=== PATIENT | male | born 1960 | race Caucasian/White ===

== ENCOUNTER 2021-01-31 13:01 | Inpatient (IN) | payer OTHER ==
[2021-01-31] VITALS (11 sets, daily range): BP systolic 72–113; BP diastolic 22–94
[~2021-01-31] VITALS: Ht 188 cm; Wt 110.2 kg
--- NOTE | 2021-01-31 13:15 | NUR ---
DR. FELIZ AT FOR EVAL.
--- NOTE | 2021-01-31 13:28 | NUR ---
REQUESTED ICU BED FROM NURSING SUP
[2021-01-31] MEDS ORDERED: DEXAMETHASONE SOD PHOSPHATE 10 MG/ML VIAL ONE (13:30)
[2021-01-31] MEDS ORDERED: DEXAMETHASONE SOD PHOSPHATE 10 MG/ML VIAL IV ONE (13:30)
--- NOTE | 2021-01-31 13:30 | NUR ---
"Dx w/Covid 01/28 now feeling worse- cough No energy/weak low O2sats". AAOX4, PLACED ON O2 15L NR, O2 SAT 96%. PLACED ON VARNISHING MACHINE OPERATOR, SR. WILL CONT TO MONITOR.
--- NOTE | 2021-01-31 13:33 | NUR ---
ROOM 260
--- NOTE | 2021-01-31 13:35 | NUR ---
MOVE SHEET SUBMITTED.
--- NOTE | 2021-01-31 13:45 | NUR ---
MEDICATED PER ERMD ORDER, PT BRIAN WELL. PT PLACED ON HI-ALEX O2 40L, O2 SAT 96%, PT BRIAN WELL. NO RESP DISTRESS NOTED AT THIS TIME. WILL CONT TO MONITOR..
--- NOTE | 2021-01-31 13:49 | NUR ---
RT NOTE PT PLACED ON HIGH FLOW PER MD FELIZ ORDER. SETTINGS ARE 40LPM AND 100% FIO2. SPO2 95%. WILL CONTINUE TO MONITOR.
[2021-01-31 13:52] LABS: CALCIUM, SERUM 8.1 mg/dL (8.5-10.1); CARBON DIOXIDE 29 mmol/L (21-32); CHLORIDE 95 mmol/L (98-107); CREATININE 1.2 mg/dL (0.6-1.3); GLUCOSE 134 mg/dL (74-106); POTASSIUM 4.2 mmol/L (3.5-5.1); SODIUM SERUM 132 mmol/L (136-145); UREA NITROGEN, BLOOD 27 mg/dL (7-18)
[2021-01-31 13:55] LABS: BASOPHILS % (AUTO) 0.1 % (0.0-2.0); EOSINOPHILS % (AUTO) 0.1 % (0.0-6.0); HEMATOCRIT 48 % (39-51); HEMOGLOBIN 16.5 g/dL (13.5-17.5); LYMPHOCYTES # (AUTO) 0.7 K/uL (0.8-4.8); LYMPHOCYTES % (AUTO) 11.6 % (20.0-44.0); MEAN CORPUSCULAR HGB CONC 35 g/dl (31.0-36.0); MEAN CORPUSCULAR VOLUME 90 fL (80-96); MONOCYTES # (AUTO) 0.5 K/uL (0.1-1.30); MONOCYTES % (AUTO) 8.6 % (2.0-12.0); NEUTROPHILS # (AUTO) 4.5 K/uL (1.8-8.9); NEUTROPHILS % (AUTO) 79.6 % (43.0-81.0); PLATELET COUNT (AUTO) 179 K/uL (150-450); RED BLOOD CELL COUNT(AUTO) 5.29 MIL/uL (4.5-6.0); WHITE BLOOD COUNT (AUTO) 5.7 K/uL (4.3-11.0)
[2021-01-31 13:57] LABS: ALANINE AMINOTRANSFERASE 181 U/L (12-78); ALKALINE PHOSPHATASE 48 U/L (46-116); ASPARTATE AMINOTRANSFERASE 147 U/L (15-37); BILIRUBIN,DIRECT 0.4 mg/dL (0.0-0.2); BILIRUBIN,TOTAL 0.9 mg/dL (0.2-1.0); TOTAL PROTEIN, SERUM 7.2 g/dL (6.4-8.2)
--- NOTE | 2021-01-31 14:13 | NUR ---
[facility] CALLED INVESTMENT BANKING MANAGER PAGED.
--- NOTE | 2021-01-31 14:33 | NUR ---
sarah Berry [phone]
[2021-01-31] MEDS ORDERED: REMDESIVIR (CHARGED) 200 MG, *LOADING DOSE 1 EA in IV NS 0.9% 210 ML IV ONE (15:00)
[2021-01-31] MEDS ORDERED: Z GUARD REMEDY 2 OZ OINT TP PRN (15:30)
[2021-01-31] MEDS ORDERED: IV NS 0.9% 1,000 ML IV ONE (15:30)
[2021-01-31] MEDS ORDERED: MAGNESIUM HYDROXIDE 30 ML UDC PO PRN (15:30)
[2021-01-31] MEDS ORDERED: ZOLPIDEM TARTRATE 5 MG TABLET PO PRN (15:30)
[2021-01-31] MEDS ORDERED: MAG HYDROX/AL HYDROX/SIMETH 30 ML UDC PO PRN (15:30)
[2021-01-31] MEDS ORDERED: ONDANSETRON HCL/PF 4 MG/2 ML VIAL IVP PRN (15:30)
--- NOTE | 2021-01-31 15:41 | NUR ---
REPORT GIVEN TO ML BURKETT FOR ARACELIS.
--- NOTE | 2021-01-31 16:00 | NUR ---
PT ARRIVED ON UNIT AT 1558. PT WAS SETTLED IN BED, INSTRUCTED HOW TO USE BED AND CALL LIGHT. PT IMMEDIATELY INFORMED KWADWO RN AND ALESSANDRO RN THAT HE REFUSES TO TAKE REMDESIVIR IF IT WAS TO BE GIVEN TO HIM. PT STATES "BECAUSE IT'S BAD FOR MY KIDNEYS". RN EXPLAINED THE BENEFITS OF THE MED, PT CONTINUES TO REFUSE. DR. RAMIREZ AND DR ARSHAD AND PHARMACY ALL NOTIFIED. PT CURRENTLY ON 40L 100% HIGH FLOW NASAL CANNULA SATTING 84-86%. PT IS ALERT OX4, HAS CELL PHONE AT BEDSIDE, ABLE TO MOVE INDEPENDENTLY.
[2021-01-31 16:30] LABS: FERRITIN 3272 ng/mL (8-388)
[2021-01-31] MEDS: ENOXAPARIN SODIUM 40 MG/0.4 ML DISP.SYRIN SQ SCH ×2 (16:51→17:00)
--- NOTE | 2021-01-31 20:00 | NUR ---
ICU NOTES Received patient awake alert and oriented x4.VS stable.On HFNC 40L 100% FIO2 satting 86%.-91%. HOB elevated.No acute respiratory distress noted.Patient verbalized he is hungry.Diet served ate with good appetite.IVF NS infusing well.Voiding per urinal.Moves in bed independently.Call light at bedside.
--- NOTE | 2021-01-31 20:21 | NUR ---
RECEIVED PT ON HFNC 40L, FIO2 100%. PT IS AWAKE AND ALERT O2 SAT 89%. CONTINUE TO MONITOR.
[2021-02-01] VITALS (25 sets, daily range): BP systolic 93–123; BP diastolic 39–70
[2021-02-01] MEDS: ENOXAPARIN SODIUM 40 MG/0.4 ML DISP.SYRIN SQ SCH ×2 (04:58→17:48)
[2021-02-01 05:52] LABS: BASOPHILS % (AUTO) 0.1 % (0.0-2.0); HEMATOCRIT 43 % (39-51); HEMOGLOBIN 14.9 g/dL (13.5-17.5); LYMPHOCYTES # (AUTO) 0.6 K/uL (0.8-4.8); LYMPHOCYTES % (AUTO) 12.5 % (20.0-44.0); MEAN CORPUSCULAR HGB CONC 35 g/dl (31.0-36.0); MEAN CORPUSCULAR VOLUME 90 fL (80-96); MONOCYTES # (AUTO) 0.4 K/uL (0.1-1.30); MONOCYTES % (AUTO) 9.8 % (2.0-12.0); NEUTROPHILS # (AUTO) 3.6 K/uL (1.8-8.9); NEUTROPHILS % (AUTO) 77.6 % (43.0-81.0); PLATELET COUNT (AUTO) 198 K/uL (150-450); RED BLOOD CELL COUNT(AUTO) 4.72 MIL/uL (4.5-6.0); WHITE BLOOD COUNT (AUTO) 4.6 K/uL (4.3-11.0)
[2021-02-01 06:05] LABS: ALBUMIN 2.4 g/dL (3.4-5.0); BILIRUBIN,TOTAL 0.6 mg/dL (0.2-1.0); CALCIUM, SERUM 7.6 mg/dL (8.5-10.1); CREATININE 1.1 mg/dL (0.6-1.3); MAGNESIUM 3.2 mg/dL (1.8-2.4); PHOSPHORUS 3.9 mg/dL (2.5-4.9); POTASSIUM 4.6 mmol/L (3.5-5.1); TOTAL PROTEIN, SERUM 6.4 g/dL (6.4-8.2)
--- NOTE | 2021-02-01 07:10 | NUR ---
ICU NOTES Patient AAOX4.Afebrile.Continue on HFNC 40L 100 FIO2 saturation flactuating from 84%-93 %. No acute respiratory distress noted.SR/SB 58.Denies pain or any discomfort.AM care done. Need met.Continueon Droplet precaution.Report given to day shift Agustin for willie.
--- NOTE | 2021-02-01 07:30 | NUR ---
RN Note: Pt received alert awake oriented X 4. On high flow O2 NC @ 40LPM, Fio2 100%. No breathing distress noted at rest. SPO2 84-92%. Denies pain & discomfort at this time. Safety measures observed. Continue with droplet/contact precautions. Encourage pt to use call light for assistance. Call light within reach. Continue to monitor closely.
[2021-02-01] MEDS: DEXAMETHASONE SOD PHOSPHATE 10 MG/ML VIAL IV SCH (08:04)
[2021-02-01] MEDS: ZINC SULFATE 220 MG CAPSULE PO SCH (09:06)
[2021-02-01] MEDS: CHOLECALCIFEROL 1,000 UNIT TABLET (VIT D3) PO SCH (09:06)
[2021-02-01 10:07] LABS: ABG BASE EXCESS 0.2 mmol/L; ABG OXYGEN SATURATION 87.4 % (92.0-98.5); ABG PH 7.482 (7.350-7.450); ABG PO2 52.4 mmHg (75.0-100.0); AaDO2 629.6 mmHg; COHb 0.2 % (0.5-1.5); MetHb 0.1 % (0.0-1.5); O2Hb 87.1 % (94.0-97.0); SITE, ABG Right Radial; VENT MODE, BG HFNC 40LPM/100%
[2021-02-01] MEDS ORDERED: REMDESIVIR (CHARGED) 100 MG in IV NS 0.9% 100 ML IV SCH (15:00)
--- NOTE | 2021-02-01 19:16 | NUR ---
RN NOTE: NO CHANGE OF CONDITION NOTED DURING SHIFT. REPORT GIVEN TO PM SHIFT FOR CONTINUITY OF CARE.
--- NOTE | 2021-02-01 20:00 | NUR ---
Received patient AAOX4.Vital signs stable.Respiration even and unlabored.Continue on HFNC 40L FIO2 100% in addition to NRB mask saturation 88%-92%.Denies pain or sob.Voiding per urinal.Independent with bed mobility.SL to LAC intact.Continue to monitor.
[2021-02-02] VITALS (28 sets, daily range): BP systolic 75–125; BP diastolic 28–96
[2021-02-02] MEDS: ENOXAPARIN SODIUM 40 MG/0.4 ML DISP.SYRIN SQ SCH ×2 (04:14→17:51)
[2021-02-02] MEDS ORDERED: IV NS 0.9% 1,000 ML IV ONE (04:30)
--- NOTE | 2021-02-02 04:30 | NUR ---
ICU NOTES Patient with blood pressure SBP mid 80's.Dr Messina notified with orders received and carried out.To give NS 1L bolus.
[2021-02-02 05:18] LABS: BASOPHILS % (AUTO) 0.1 % (0.0-2.0); HEMATOCRIT 40 % (39-51); HEMOGLOBIN 14.2 g/dL (13.5-17.5); LYMPHOCYTES # (AUTO) 1.2 K/uL (0.8-4.8); LYMPHOCYTES % (AUTO) 13.6 % (20.0-44.0); MEAN CORPUSCULAR HGB CONC 35 g/dl (31.0-36.0); MEAN CORPUSCULAR VOLUME 90 fL (80-96); MONOCYTES # (AUTO) 0.5 K/uL (0.1-1.30); MONOCYTES % (AUTO) 5.8 % (2.0-12.0); NEUTROPHILS % (AUTO) 80.5 % (43.0-81.0); PLATELET COUNT (AUTO) 243 K/uL (150-450); RED BLOOD CELL COUNT(AUTO) 4.49 MIL/uL (4.5-6.0); WHITE BLOOD COUNT (AUTO) 8.7 K/uL (4.3-11.0)
[2021-02-02 05:24] LABS: CALCIUM, SERUM 7.9 mg/dL (8.5-10.1); CREATININE 0.9 mg/dL (0.6-1.3); POTASSIUM 4.6 mmol/L (3.5-5.1)
--- NOTE | 2021-02-02 05:58 | NUR ---
ICU NOTES here on rounds updated of patient status.Orders received and carried out.
--- NOTE | 2021-02-02 06:00 | NUR ---
ICU NOTES Patient awake in no acute distress.Latest BP 94/63 HR 56.Per to stop IV NS bolus.Patient only received 500ml.Stat ABG done awaiting result.
[2021-02-02 06:17] LABS: ABG BASE EXCESS 1.6 mmol/L; ABG OXYGEN SATURATION 89.8 % (92.0-98.5); ABG PCO2 32.6 mmHg (35.0-45.0); ABG PH 7.489 (7.350-7.450); ABG PO2 55.8 mmHg (75.0-100.0); AaDO2 624.6 mmHg; COHb 0.5 % (0.5-1.5); MetHb 0.3 % (0.0-1.5); O2Hb 89.1 % (94.0-97.0); SITE, ABG Right Radial; VENT MODE, BG HFNC 40L 100% + NRB
--- NOTE | 2021-02-02 06:30 | NUR ---
Dr. Claros seen patient and aware of ABG's result pH =7.489,pCO2 =32.6,pO2= 55.8,HCO3=24.2 and SB 40'S-50'S.No new orders received.Patient resting in no acute distress.
[2021-02-02] MEDS: CHOLECALCIFEROL 1,000 UNIT TABLET (VIT D3) PO SCH (08:43)
[2021-02-02] MEDS: ZINC SULFATE 220 MG CAPSULE PO SCH (08:43)
[2021-02-02] MEDS: DEXAMETHASONE SOD PHOSPHATE 10 MG/ML VIAL IV SCH (08:43)
[2021-02-02 08:47] LABS: ALBUMIN 2.3 g/dL (3.4-5.0); BILIRUBIN,DIRECT 0.2 mg/dL (0.0-0.2); BILIRUBIN,TOTAL 0.7 mg/dL (0.2-1.0); TOTAL PROTEIN, SERUM 5.9 g/dL (6.4-8.2)
--- NOTE | 2021-02-02 19:10 | NUR ---
PCT NOTE RECEIVED PATIENT IN BED RESTING ALERT ORIENTED X4 ABLE TO MAKE NEEDS KNOWN,ON HIGH FLOW OXYGEN 40L FIO2:100% AND 15L NON REBREATHER MASK O2:88% IV SITE IS ON LEFT AC INTACT PATENT HEAD OF BED ELEVATED CONTINENT TO BOWEL/BLADDER, CALL LIGHT WITHIN REACH, BED IN LOW POSITION AND LOCKED,ENCOURAGE TO STAY ON PRONE POSITON CONTINUE TO MONITOR.
[2021-02-03] VITALS (49 sets, daily range): BP systolic 72–122; BP diastolic 30–86
[2021-02-03] MEDS: ENOXAPARIN SODIUM 40 MG/0.4 ML DISP.SYRIN SQ SCH ×2 (04:17→17:02)
[2021-02-03 04:51] LABS: BASOPHILS % (AUTO) 0.2 % (0.0-2.0); EOSINOPHILS % (AUTO) 0.2 % (0.0-6.0); HEMATOCRIT 43 % (39-51); HEMOGLOBIN 14.9 g/dL (13.5-17.5); LYMPHOCYTES # (AUTO) 1.1 K/uL (0.8-4.8); LYMPHOCYTES % (AUTO) 9.7 % (20.0-44.0); MEAN CORPUSCULAR HGB CONC 35 g/dl (31.0-36.0); MEAN CORPUSCULAR VOLUME 90 fL (80-96); MONOCYTES # (AUTO) 0.2 K/uL (0.1-1.30); MONOCYTES % (AUTO) 2.2 % (2.0-12.0); NEUTROPHILS # (AUTO) 9.6 K/uL (1.8-8.9); NEUTROPHILS % (AUTO) 87.7 % (43.0-81.0); PLATELET COUNT (AUTO) 265 K/uL (150-450)
[2021-02-03 05:04] LABS: CALCIUM, SERUM 7.8 mg/dL (8.5-10.1); CREATININE 0.9 mg/dL (0.6-1.3); POTASSIUM 5.3 mmol/L (3.5-5.1)
--- NOTE | 2021-02-03 06:52 | NUR ---
RN NOTE PATIENT REMAINS ON ALERT ORIENTED X4 VERBALLY RESPONSIVE ON HIGH FLOW OXYGEN 40L FIO2:100% AND 15L NON REBREATHER MASK O2:96% IV SITE IS ON LEFT AC INTACT PATENT KEPT CLEAN AND DRY ALL THE TIME,KEPT COMFORTABLE ALL NEEDS MET ENDORSE NEXT COMING SHIFT FOR CONTINUATION OF CARE.
--- NOTE | 2021-02-03 07:20 | NUR ---
PUBLIC HEALTH ENGINEER OPENING NOTE RECEIVED REPORT FROM PM NURSE.PATIENT IS ALERT ORIENTED X4 VERBALLY RESPONSIVE ON HIGH FLOW OXYGEN 40L FIO2:100% AND 15L NON REBREATHER MASK O2:96% . IV SITE IS ON LEFT AC INTACT PATENT.BED IS LOW AND IN LOCKED POSITION.CALL LIGHT IN REACH.BED ALARM IS ON.SRX3.WILL CONTINUE TO MONITOR.
[2021-02-03] MEDS: DEXAMETHASONE SOD PHOSPHATE 10 MG/ML VIAL IV SCH (08:02)
[2021-02-03] MEDS: CHOLECALCIFEROL 1,000 UNIT TABLET (VIT D3) PO SCH (08:02)
[2021-02-03] MEDS: ZINC SULFATE 220 MG CAPSULE PO SCH (08:02)
--- NOTE | 2021-02-03 08:20 | NUR ---
SEEN BY UPDATED ABOUT PATIENT CONDITION WITH LABS,CARMELOE AWARE K -5.3.NNO NOW.OK TO ORDER PCR IF NOT ORDERED IN LAB,CALL MADE TO LAB NO ORDER FOR COVID PCR.WILL FOLLOW UP.
[2021-02-03 08:52] LABS: ABG BASE EXCESS -0.1 mmol/L; ABG PCO2 27.9 mmHg (35.0-45.0); ABG PH 7.506 (7.350-7.450); ABG PO2 72.2 mmHg (75.0-100.0); AaDO2 612.9 mmHg; COHb 0.4 % (0.5-1.5); MetHb 0.3 % (0.0-1.5); O2Hb 94.3 % (94.0-97.0); SITE, ABG Left Brachial; VENT MODE, BG NRGB + HFNC
[2021-02-03] MEDS: ACETAMINOPHEN 325 MG TABLET PO PRN (13:37)
--- NOTE | 2021-02-03 14:17 | NUR ---
MADE AWARE ABOUT PATIENT SISTER REQUEST TO CALL.BP IS GETTING LOW WHILE HE SLEEPS AND AT TIMES.DRY COUGH PRESENT. AWARE.CHARTING DONE ACCIDENTALLY FROM PREVIOUS SHIFT NURSE'S OPEN WINDOW.RE CHARTED UNDER MY NAME.
--- NOTE | 2021-02-03 18:09 | NUR ---
SERVICE DELIVERY MANAGER CLOSING NOTE PATIENT IN BED ALERT ORIENTED X4 VERBALLY RESPONSIVE ON HIGH FLOW OXYGEN 40L FIO2:100% AND 15L NON REBREATHER MASK O2:96% . STILL REFUSING REMDESIVIR . MADE AWARE.EDUCATION GIVEN.HE SAID HE WILL THINK ABOUT IT.BUT NOT THIS POINT.IV SITE IS ON LEFT AC INTACT PATENT.BED IS LOW AND IN LOCKED POSITION.CALL LIGHT IN REACH.BED ALARM IS ON.SRX3.WILL ENDORSE TO PM NURSE FOR ARACELIS.
--- NOTE | 2021-02-03 19:30 | NUR ---
RN OPENING NOTE REC'D PT IN BED. A/OX4. ON 40L HIGH FLOW NC WITH 15L NONREBREATHER. BREATHING LABORED. PT SATURATION IS 89-92% AT THIS TIME. EDUCATED PT ON IMPORTANCE OF KEEPING MASK ON. PRONING ENCOURAGED. PT ON MONITOR PRESENTS WITH NSR ON TELE. IV SITE LEFT AC FLUSHES WELL. PT DENIES PAIN. PT USES URINAL, INDEPENDENT. SAFETY MEASURES IN PLACE. HOB ELEVATED SIDE RAILS UP X2 BED LOCKED IN LOWEST POSITION. CALL LIGHT WITHIN REACH. ALL NEEDS ATTENDED AT THIS TIME. WILL CONT TO MONITOR.
--- NOTE | 2021-02-03 20:00 | NUR ---
RN NOTE: FAMILY PT FAMILY ON PHONE WITH BUSINESS ANALYTICS DIRECTORMAILE HAVING EXTENSIVE CONVERSATION REGARDING PT PROGRESS. PER FAMILY, THEY HAVE ATTEMPTED TO GET IN CONTACT WITH MD THEY ARE VERY CONCERNED DUE TO LACK OF COMMUNICATION FROM MD THE LAST THREE DAYS. NOTIFIED DISTRIBUTION CENTER SUPERVISOR, SHARON RENDON NP SAYS HE WILL FOLLOW UP WITH FAMILY BETTE.
--- NOTE | 2021-02-03 23:50 | NUR ---
RN/ICU-SPOKE TO Ford KU BY PHONE ,STATED THAT HE JUST SPOKE TO PT. SISTER DIVINA REGARDING PT. STATUS AND UPDATE.
[2021-02-04] VITALS (33 sets, daily range): BP systolic 78–110; BP diastolic 33–71
[2021-02-04] MEDS: ENOXAPARIN SODIUM 40 MG/0.4 ML DISP.SYRIN SQ SCH ×2 (04:01→16:40)
[2021-02-04 05:39] LABS: BASOPHILS % (AUTO) 0.1 % (0.0-2.0); EOSINOPHILS % (AUTO) 0.3 % (0.0-6.0); HEMATOCRIT 42 % (39-51); HEMOGLOBIN 14.5 g/dL (13.5-17.5); LYMPHOCYTES # (AUTO) 0.5 K/uL (0.8-4.8); LYMPHOCYTES % (AUTO) 3.9 % (20.0-44.0); MEAN CORPUSCULAR HGB CONC 35 g/dl (31.0-36.0); MEAN CORPUSCULAR VOLUME 91 fL (80-96); MONOCYTES # (AUTO) 0.1 K/uL (0.1-1.30); MONOCYTES % (AUTO) 0.9 % (2.0-12.0); NEUTROPHILS % (AUTO) 94.8 % (43.0-81.0); PLATELET COUNT (AUTO) 234 K/uL (150-450); WHITE BLOOD COUNT (AUTO) 13.8 K/uL (4.3-11.0)
[2021-02-04 05:51] LABS: ALBUMIN 2.3 g/dL (3.4-5.0); BILIRUBIN,DIRECT 0.3 mg/dL (0.0-0.2); BILIRUBIN,TOTAL 0.9 mg/dL (0.2-1.0); CALCIUM, SERUM 7.8 mg/dL (8.5-10.1); CREATININE 0.9 mg/dL (0.6-1.3); POTASSIUM 4.7 mmol/L (3.5-5.1)
--- NOTE | 2021-02-04 07:09 | NUR ---
MEDICINAL PLANT PICKER CLOSING NOTE NO SIGNIFICANT CHANGE IN PT CONDITION, BP TENDS TO GO LOW AT TIMES WHEN PT IS ASLEEP, BUT RETURNS BACK TO NORMAL. PT REMAINS ON HF + NONREBREATHER AT SAME SETTINGS. SAFETY MEASURES IN PLACE. PT BROTHER HOLLIE REGULARLY CALLS. LAST CONVERSATION WAS REGARDING THE POSSIBILITY OF PT TAKING MEDICATION, ACTEMRA. FAMILY DOES NOT WANT HIM TO TAKE IT DUE TO POSSIBLE SIDE EFFECTS. I EXPLAINED TO FAMILY THAT IF PT IS ALERT, SOUND OF MIND, HE IS ABLE TO MAKE INFORMED DECISIONS REGARDING HIS CARE. HOLLIE VERBALIZED UNDERSTANDING, JUST REQUESTS I EXPLAIN TO DAY SHIFT NURSE THE FAMILY CONCERN.
--- NOTE | 2021-02-04 07:15 | NUR ---
RN OPENING NOTE RECEIVED PT IN BED. A/OX4. ON 40L HIGH FLOW NC WITH 15L NONREBREATHER. PT O2 SATURATION @96% AT THIS TIME. SR ON TELE MONITOR. IV ACCESS ON LEFT AC #18 INTACT, PATENT AND FLUSHED. PT DENIES PAIN. EDUCATED PT ON IMPORTANCE OF KEEPING MASK ON. SAFETY MEASURES IN PLACE. HOB ELEVATED SIDE RAILS UP X2. CALL LIGHT WITHIN REACH. BED LOCKED IN LOWEST POSITION. WILL CONTINUE TO MONITOR.
--- NOTE | 2021-02-04 07:28 | NUR ---
ENDORSED TO DAY SHIFT RN FOR CONTINUATION OF CARE
[2021-02-04] MEDS: CHOLECALCIFEROL 1,000 UNIT TABLET (VIT D3) PO SCH (08:38)
[2021-02-04] MEDS: ASCORBIC ACID 500 MG TABLET PO SCH (08:38)
[2021-02-04] MEDS: ZINC SULFATE 220 MG CAPSULE PO SCH (08:38)
[2021-02-04] MEDS: DEXAMETHASONE SOD PHOSPHATE 10 MG/ML VIAL IV SCH (08:38)
--- NOTE | 2021-02-04 18:48 | NUR ---
RN CLOSING NOTE NO SIGNIFICANT CHANGES THROUGHOUT THE SHIFT. ON HF + NONREBREATHER AT SAME SETTINGS. ALL DUE MEDS GIVEN. NEEDS ATTENDED. ASSISTED ON BATHING. KEPT CLEAN AND COMFORTABLE. SAFETY MEASURES IN PLACE. CALL LIGHT WITHIN REACH. WILL ENDORSE TO NIGHT RN FOR ARACELIS.
--- NOTE | 2021-02-04 19:15 | NUR ---
Received patient awake alert and oriented x4 On HFNC 40L 100% FIO2 satting 86%.-91%. HOB elevated.Encourage pt to proning position, vebalized understanding,No acute respiratory distress noted.Pt able to verbalized needs n pain complaint IVF NS infusing well.Voiding per urinal.Moves in bed independently.Bed on lowest position and locked side rails up Call light at bedside will cont to monitor
[2021-02-04] MEDS: ACETAMINOPHEN 325 MG TABLET PO PRN (20:47)
[2021-02-05] VITALS (24 sets, daily range): BP systolic 79–146; BP diastolic 33–95
[2021-02-05] MEDS: ENOXAPARIN SODIUM 40 MG/0.4 ML DISP.SYRIN SQ SCH ×2 (04:45→17:30)
--- NOTE | 2021-02-05 06:03 | NUR ---
REPORTED TO FINGERPRINTER NICOLA BATRES THAT PT IS RUNNING FEVER TODAY AND THERE IS NO LABS TEST ORDER FOR TODAY, SHE ORDER CBC BMP MG PHOS UA AND BLOOD CULTURE X2 5 MINS APART LACTIC AND PROCALCITONIN NOTED AND CARRIED OUT
[2021-02-05 06:45] LABS: BASOPHILS % (AUTO) 0.1 % (0.0-2.0); EOSINOPHILS % (AUTO) 0.3 % (0.0-6.0); HEMATOCRIT 41 % (39-51); HEMOGLOBIN 14.2 g/dL (13.5-17.5); LYMPHOCYTES # (AUTO) 0.3 K/uL (0.8-4.8); LYMPHOCYTES % (AUTO) 2.3 % (20.0-44.0); MEAN CORPUSCULAR HGB CONC 35 g/dl (31.0-36.0); MEAN CORPUSCULAR VOLUME 91 fL (80-96); MONOCYTES # (AUTO) 0.1 K/uL (0.1-1.30); MONOCYTES % (AUTO) 1.2 % (2.0-12.0); NEUTROPHILS # (AUTO) 11.2 K/uL (1.8-8.9); NEUTROPHILS % (AUTO) 96.1 % (43.0-81.0); PLATELET COUNT (AUTO) 209 K/uL (150-450); WHITE BLOOD COUNT (AUTO) 11.7 K/uL (4.3-11.0)
[2021-02-05 07:09] LABS: MAGNESIUM 2.6 mg/dL (1.8-2.4); PHOSPHORUS 2.6 mg/dL (2.5-4.9); POTASSIUM 4.4 mmol/L (3.5-5.1)
--- NOTE | 2021-02-05 07:27 | NUR ---
HOSTING ENGINEER OPENING NOTE Patient is Awake, A/O X 4, sitting upright in bed drinking water, on 40L HIGH FLOW NC WITH 15L NONREBREATHER satting 88-90%. Telereading sinus rhythm. On contact/droplet isolation for COVID +. LAC IV site 18G with no s/sx of infiltration, safety precautions implemented, bed locked in lowest position, call light within reach.
[2021-02-05] MEDS: ASCORBIC ACID 500 MG TABLET PO SCH (08:04)
[2021-02-05] MEDS: ZINC SULFATE 220 MG CAPSULE PO SCH (08:04)
[2021-02-05] MEDS: CHOLECALCIFEROL 1,000 UNIT TABLET (VIT D3) PO SCH (08:04)
[2021-02-05] MEDS: DEXAMETHASONE SOD PHOSPHATE 10 MG/ML VIAL IV SCH (08:05)
[2021-02-05 08:58] LABS: ABG BASE EXCESS -1.6 mmol/L; ABG OXYGEN SATURATION 91.1 % (92.0-98.5); ABG PCO2 27.1 mmHg (35.0-45.0); ABG PH 7.489 (7.350-7.450); ABG PO2 57.1 mmHg (75.0-100.0); AaDO2 628.8 mmHg; COHb 0.6 % (0.5-1.5); MetHb 0.3 % (0.0-1.5); O2Hb 90.3 % (94.0-97.0); SITE, ABG Right Radial; VENT MODE, BG HIGH FLOW 40 LPM / 100%
[2021-02-05] MEDS: ACETAMINOPHEN 325 MG TABLET PO PRN ×2 (11:33→23:26)
[2021-02-05 12:11] LABS: BILIRUBIN,URINE SMALL (NEGATIVE); COLOR,URINE DARK YELLOW (YELLOW); LEUKOCYTE ESTERASE ,URINE NEGATIVE (NEGATIVE); NITRITE, URINE NEGATIVE (NEGATIVE); PH,URINE 6.5 (5.0-8.0); PROTEIN,URINE 100 mg/dl (NEGATIVE); UGLUCOSE NEGATIVE (NEGATIVE)
--- NOTE | 2021-02-05 12:33 | NUR ---
RN NOTE 1133-Temperature 101.0 F via axillary route, cooling measures and tylenol administered. 1233-Temperature of 98.8F.
[2021-02-05 13:41] LABS: BACTERIA,URINE Rare /HPF (None Seen); RBC,URINE 0-2 /HPF (0-2); SQUAMOUS EPITHELIAL CELL,UR Rare /HPF (None Seen); WBC,URINE 0-2 /HPF (0-3)
--- NOTE | 2021-02-05 18:57 | NUR ---
INTERNAL COMMUNICATIONS WRITER CLOSING NOTES Patient is A/O X4, On HFN 40L 100% and Non-rebreather mask 15L with fluctuating 02 sat 80-89%. Complains of SOB upon exertion, sleeps lateral side advised to self prone. On droplet/contact precautions for COVID. Fever 101F noted with mild relief after administration of tylenol and cooling measures 98.8F. Continent of B/B voided 700cc and 1 BM. Poor po intake >25% for all meals. AM/PM care rendered. DNP made aware of lactic acid results 2.3. Safety precautions implemented, bed locked in lowest position, call light within reach. Spoke with Family Sister/brother in three different times updated of patient condition and current plan of care. Addendum: 02/05/21 at 1902 by EMY MORGAN RN *Poor po intake <25 % for all meals.
--- NOTE | 2021-02-05 19:05 | NUR ---
RECEIVED PT ON BED AWAKE A/O X3 STILL ON O2 15L VIA NRM AND 40L HIGHFLOW 100% WITH SPO2 80-89% MD IS AWARE,PT IS DRINGKING WATER AT THE TIME, TEMP CHECKED WITH 99.2F BEDSIDE MONITOR READS SINUS RHYTHM 80'S HAVE LAC#18 PATENT AND FLUSHED DROPLET ISOLATION MAINTAINED FOR COVID 19 BED ON LOWEST POSITION AND LOCKED SIDE RILS UP X2 CALL LIGHT WITHIN REACH WILL CONT TO MONITOR
--- NOTE | 2021-02-05 19:59 | NUR ---
RECEIVED PT ON HFNC 40L, FIO2 100% + NRB. PT IS AWAKE O2 SAT 88%. CONTINUE TO MONITOR.
[2021-02-06] VITALS (79 sets, daily range): BP systolic 68–173; BP diastolic 47–124
--- NOTE | 2021-02-06 02:24 | NUR ---
PT ON BED SLEEPING STILL ON O2 15L VIA NRM AND 40L 100% VIA HIGH FLOW WITH SPO2 80-86% PT IS A//O X4 EASY TO WAKE UP, NO COMPLAINT OF ANY PAIN BUT STILL TACHYPNEIC WITH RR >30 PER PT HE SAID HE IS OKAY NOW LATEST TEMP 99.2 ENCOURAGE PT TO DO PRONING OR SIDE LYING TOLERATED VERBALIZED UNDERSTANDING WILL CONT TO MONITOR
--- NOTE | 2021-02-06 03:41 | NUR ---
STAT ABG DONE. NOTIFIED RN WITH THE CRITICAL VALUES.
[2021-02-06 03:45] LABS: ABG OXYGEN SATURATION 67.6 % (92.0-98.5); ABG PO2 32.6 mmHg (75.0-100.0); AaDO2 654.4 mmHg; COHb 1.1 % (0.5-1.5); MetHb 0.2 % (0.0-1.5); O2Hb 66.7 % (94.0-97.0); SITE, ABG Right Radial
--- NOTE | 2021-02-06 04:00 | NUR ---
@ 0330 REPORTED TO ONCKOLBY BATRES THAT PT SPO2 IS SUSTAINING ON 60-70'S AND WE DO STAT ABG AND REPOSTED TO HER THE RESULT WITH LOW PO2 OF 32, AND INFORM HER THAT WE SPOKE TO THE PATIENT AWHILE AGO THAT PT IS HAVING A SECOND THOUGHT OF GETTING INTUBATED PER PT THE THING BEING INTUBATED IS SOUNDS HORRIBLE AND HE IS WORRIED ABOUT HOW HE WILL TALK OR DRINK WATER AND EAT FOOD, I EXPLAIN TO THE PT THAT WHILE HE WAS ON VENTILATOR AND INTUBATED HE WILL BE SEDATED/ HE WILL PUT TO SLEEP AND REGARDING THE FOOD HIS FOOD I WILL GO THRU THE NGTUBE, PER PT HE WANT TO INFORM HIS SISTER DIVINA, WILL CALL DIVINA PER PT REQUEST
--- NOTE | 2021-02-06 04:15 | NUR ---
CALL DIVINA PT SISTER [phone] AND EXPLAIN TO HER THE NEEDS FOR HIS BROTHER TO BE INTUBATED DUE TO LOW SPO2 AND OXYGEN ON HIS BLOOD, PER DIVINA SHE WANT TO TALK TO THE ONCALL ABOUT THE POSSIBLE INTUBATION OF HER BROTHER MR JOE
[2021-02-06] MEDS: ENOXAPARIN SODIUM 40 MG/0.4 ML DISP.SYRIN SQ SCH ×2 (04:18→16:28)
[2021-02-06] MEDS ORDERED: DEXAMETHASONE SOD PHOSPHATE 10 MG/ML VIAL IV ONE (04:30)
--- NOTE | 2021-02-06 05:10 | NUR ---
CALLED DIVINA PT SISTER AND SHE TALK TO THE PT AND THEY DISCUSS WHAT THE ONCKOLBY RAMIREZ DISCUSS TO THEM, PT AGREE TO BE INTUBATED AND ALSO THE PT SISTER INFORM THE ONCKOLBY BATRES SLEDGER AND ER MD TO START THE INTUBATION
[2021-02-06] MEDS: PROPOFOL 100 ML IV PRN ×8 (05:30→23:05)
--- NOTE | 2021-02-06 05:30 | NUR ---
DR TITO ABRAHAM MD AT BEDSIDE AND INTUBATING THE PT, RT AND ICU CHARGE NURSE AT BEDSIDE
--- NOTE | 2021-02-06 05:40 | NUR ---
RECEIVED AN ORDER FROM STUDENT DEVELOPMENT COORDINATOR NICOLA BATRES FOR SIPRICAN TITRATE PER PROTOCOL LEVOPHED TITRATE PER PROTOCOL TO MAINTAIN SBP>90, BILATERAL SOFT WRIST RESTRAINTS FOR SELF EXTUBATION PRECAUTION SOME AM LABS NOTED AND CARRIED OUT
[2021-02-06 05:53] LABS: BASOPHILS % (AUTO) 0.2 % (0.0-2.0); EOSINOPHILS % (AUTO) 0.1 % (0.0-6.0); HEMATOCRIT 46 % (39-51); HEMOGLOBIN 15.6 g/dL (13.5-17.5); LYMPHOCYTES # (AUTO) 1.1 K/uL (0.8-4.8); LYMPHOCYTES % (AUTO) 6.1 % (20.0-44.0); MEAN CORPUSCULAR HGB CONC 34 g/dl (31.0-36.0); MEAN CORPUSCULAR VOLUME 93 fL (80-96); MONOCYTES # (AUTO) 0.5 K/uL (0.1-1.30); MONOCYTES % (AUTO) 2.5 % (2.0-12.0); NEUTROPHILS # (AUTO) 17.2 K/uL (1.8-8.9); NEUTROPHILS % (AUTO) 91.1 % (43.0-81.0); PLATELET COUNT (AUTO) 213 K/uL (150-450); WHITE BLOOD COUNT (AUTO) 18.9 K/uL (4.3-11.0)
--- NOTE | 2021-02-06 05:56 | NUR ---
PT ORALLY INTUBATED BY DR FRANCIS. 7.5 ETT SECURED AT 25CM AT THE LIP. COLOR CHANGED ON CO2 DETECTOR. BILAT CHEST RISE. PLACED ON 840 VENT. VENT ALARMS SET AND AUDIBLE. VENT PLUGGED INTO RED OUTLET. Addendum: 02/06/21 at 0559 by ANA CRISTINA CHRISTY RT Amended: Links added.
[2021-02-06 06:00] LABS: CALCIUM, SERUM 8.2 mg/dL (8.5-10.1); CREATININE 1.1 mg/dL (0.6-1.3); PHOSPHORUS 4.1 mg/dL (2.5-4.9); POTASSIUM 4.9 mmol/L (3.5-5.1)
--- NOTE | 2021-02-06 07:15 | NUR ---
RN NOTES RECEIVED PT ON BED ,INTUBATED AND SEDATED, ON DIPRIVAN AT 50MCG/KG/MIN RUNNING , ON TELE ST HR IN 130',S O2 SAT LOLA 80'S ,DRAINING TO GRAVITY, IV SITES CLEAN, DRY AND INTACT, SR UP x3, CALL LIGHT WITHIN EASY REACH, BED LOCKED AND IN LOWEST POSITION , CONTINUE TO MONITOR.
[2021-02-06] MEDS: ASCORBIC ACID 500 MG TABLET PO SCH (08:28)
[2021-02-06] MEDS: ZINC SULFATE 220 MG CAPSULE PO SCH (08:28)
[2021-02-06] MEDS: CHOLECALCIFEROL 1,000 UNIT TABLET (VIT D3) PO SCH (08:28)
[2021-02-06] MEDS: DEXAMETHASONE SOD PHOSPHATE 10 MG/ML VIAL IV SCH (08:29)
[2021-02-06] MEDS ORDERED: FENTANYL CITRATE/PF 1,250 MCG in IV NS 0.9% 225 ML IV PRN (08:30)
--- NOTE | 2021-02-06 09:15 | NUR ---
WOUND CARE CONSULT: REVIEWED CHART, NURSING DOCUMENTATION AND SPOKE WITH RN. PT WAS INTUBATED. RECOMMENDATIONS MADE FOR SKIN PROTECTION AND DISCUSSED WITH NURSING STAFF. PT IS ON [facility] LOW AIRLOSS BED. MD IN AGREEMENT WITH PLAN OF CARE.
[2021-02-06] MEDS: FENTANYL CITRATE/PF 2,500 MCG in IV NS 0.9% 200 ML IV PRN (09:18)
[2021-02-06] MEDS: NOREPINEPHRINE 8 MG in IV NS 0.9% 242 ML IV PRN ×2 (09:29→13:40)
--- NOTE | 2021-02-06 10:00 | NUR ---
RN NOTES DARK RED GASTRIC DRAINING NOTED FORM OGT. RUTHANN FUND MANAGER NOTIFIED, OGT ATTACHED TO LIS PER FUND MANAGER ORDER .
[2021-02-06 10:05] LABS: ABG BASE EXCESS -9.4 mmol/L; ABG OXYGEN SATURATION 79.8 % (92.0-98.5); ABG PCO2 64.6 mmHg (35.0-45.0); ABG PH 7.129 (7.350-7.450); ABG PO2 55.6 mmHg (75.0-100.0); AaDO2 592.8 mmHg; COHb 1.5 % (0.5-1.5); MetHb 0.4 % (0.0-1.5); O2Hb 78.3 % (94.0-97.0); SITE, ABG Right Radial; VT, ABG 500 mL
[2021-02-06] MEDS ORDERED: ROCURONIUM BROMIDE 50 MG/5 ML IV ONE (12:20)
[2021-02-06] MEDS ORDERED: ETOMIDATE 2 MG/ML VIAL IV ONE (12:20)
[2021-02-06 12:21] LABS: ABG BASE EXCESS -11.4 mmol/L; ABG OXYGEN SATURATION 91.9 % (92.0-98.5); ABG PH 7.239 (7.350-7.450); ABG PO2 72.4 mmHg (75.0-100.0); COHb 0.4 % (0.5-1.5); MetHb 0.2 % (0.0-1.5); O2Hb 91.3 % (94.0-97.0); PEEP,BG 10 cm H2O; SITE, ABG Right Radial; VT, ABG 530 mL
--- NOTE | 2021-02-06 13:00 | NUR ---
RN NOTES RUTHANN FULTON AND DR ARSHAD SPOKEN TO PT'S SISTER GREAT LENGTH OF TIME ON THE PHONE REGARDING PT CONDITION .
[2021-02-06] MEDS ORDERED: ASCORBIC ACID 500 MG TABLET PO SCH (13:30)
[2021-02-06] MEDS: CEFEPIME 2 GM in IV D5W 100 ML IV SCH ×2 (13:57→21:58)
[2021-02-06] MEDS: THIAMINE HCL 100 MG TABLET PO SCH (13:57)
[2021-02-06] MEDS ORDERED: NOREPINEPHRINE 32 MG in IV NS 0.9% 218 ML IV PRN (14:00)
[2021-02-06] MEDS: NOREPINEPHRINE 32 MG in IV NS 0.9% 250 ML IV PRN (16:58)
--- NOTE | 2021-02-06 18:00 | NUR ---
RN NOTES PT REMAINS INTUBATED , AND SEDATED , ON DIPRIVAN AT 100MCG/KG/MIN , FENTANYL AT 2MCG/KG/MIN , LEVO AT .6 MCG/KG/MIN RUNNING , TOLERAING VENT SETTING , O2 SAT WNL, OGT TO LIS WITH SMALL AMOUNT OF DARK BROWN GASTRIC DRAINING , SR UP x3, CALL LIGHT WITHIN EASY REACH, BED LOCKED AND IN LOWEST POSITION, WILL ENDORSE TO WASTE MACHINE TENDER NURSE FOR CONTINUITY OF CARE
--- NOTE | 2021-02-06 20:02 | NUR ---
PT IS INTUBATED ON [facility] VENT. PT TOLERATING VENT SETTINGS. O2 SAT 97%. ETT SECURED AT 25CM. VENT ALARMS SET AND AUDIBLE. CONTINUE TO MONITOR. Addendum: 02/06/21 at 2004 by ANA CRISTINA CHRISTY RT Amended: Links added.
[2021-02-06] MEDS: ACETAMINOPHEN 325 MG TABLET PO PRN (20:30)
--- NOTE | 2021-02-06 20:30 | NUR ---
ICU/CERTIFIED ORTHOTIC FITTER COOLING MEASURES ALONG WITH TYLENOL WERE GIVEN FOR TEMP 101.4 WILL CONTINUE TO MONITOR THIS PT AND HIS TEMP. ALSO AT THIS TIME URINE CULTURE WAS COLLECTED AND RT UNABLE TO COLLECT A SPUTUM.
[2021-02-07] VITALS (96 sets, daily range): BP systolic 84–138; BP diastolic 49–82
[2021-02-07] MEDS: PROPOFOL 100 ML IV PRN ×6 (00:41→09:53)
[2021-02-07] MEDS: FENTANYL CITRATE/PF 2,500 MCG in IV NS 0.9% 200 ML IV PRN ×3 (01:10→22:09)
[2021-02-07] MEDS: NOREPINEPHRINE 32 MG in IV NS 0.9% 250 ML IV PRN (03:26)
[2021-02-07 04:25] LABS: BASOPHILS % (AUTO) 0.2 % (0.0-2.0); HEMATOCRIT 43 % (39-51); HEMOGLOBIN 14.5 g/dL (13.5-17.5); LYMPHOCYTES # (AUTO) 0.5 K/uL (0.8-4.8); MEAN CORPUSCULAR HGB CONC 34 g/dl (31.0-36.0); MEAN CORPUSCULAR VOLUME 94 fL (80-96); MONOCYTES # (AUTO) 0.7 K/uL (0.1-1.30); NEUTROPHILS % (AUTO) 94.8 % (43.0-81.0); PLATELET COUNT (AUTO) 223 K/uL (150-450); WHITE BLOOD COUNT (AUTO) 23.2 K/uL (4.3-11.0)
[2021-02-07 04:34] LABS: CALCIUM, SERUM 6.8 mg/dL (8.5-10.1); CREATININE 2.2 mg/dL (0.6-1.3); MAGNESIUM 3.6 mg/dL (1.8-2.4); PHOSPHORUS 6.8 mg/dL (2.5-4.9); POTASSIUM 5.8 mmol/L (3.5-5.1)
--- NOTE | 2021-02-07 05:15 | NUR ---
ICU/YARD CALLER PT IS PROPERLY SEDATED, FENTANYL WAS DECREASED DOWN TO 143MCG/KG/HR, FROM 168MCG/KG/HR. WILL CONTINUE TO MONITOR THIS PT.
[2021-02-07] MEDS: ENOXAPARIN SODIUM 40 MG/0.4 ML DISP.SYRIN SQ SCH (05:27)
[2021-02-07] MEDS: CEFEPIME 2 GM in IV D5W 100 ML IV SCH (05:27)
[2021-02-07] MEDS: ACETAMINOPHEN 325 MG TABLET PO PRN ×3 (05:54→23:39)
--- NOTE | 2021-02-07 06:00 | NUR ---
ICU/EXTRUDER OPERATOR MULTIPLE COOLING MEASURES ALONG WITH TYLENOL WERE GIVEN FOR TEMP 101.6 WILL CONTINUE TO MONITOR THIS PT AND HIS TEMP.
--- NOTE | 2021-02-07 06:47 | NUR ---
ICU/MANAGER BOOK STABLE BP DECREASED LEVO TO 0.3 FROM .4MCG. ALSO AT THIS TIME DECREASED DOWN THE FENTANYL TO 118MCG/KG/HR FOR STABLE SEDATION. WILL MONITOR THIS PT.
--- NOTE | 2021-02-07 07:30 | NUR ---
RN NOTES PT FOUND IN SEMI FOWLERS POSITION DISPLAYING NO S/S OF DISTRESS, FLACC = 0 AND BILATERAL RISE AND FALL OF CHEST OBSERVED. PT SEDATED, ETT AND MECH VENT PER ORDER. R UA PICC PATIENT AND INTACT. CARTER CATH DRAINING BY GRAVITY BELOW PATIENT. VSS, RN WILL TREAT AND MONITOR PT. SAFETY MEASURES IN PLACE, BED LOCKED AND IN LOWEST POSITION, SIDE RAILS UPX2, CALL LIGHT WITHIN REACH, BED ALARM ARMED.
[2021-02-07 08:08] LABS: ABG BASE EXCESS -8.4 mmol/L; ABG OXYGEN SATURATION 91.2 % (92.0-98.5); ABG PCO2 52.5 mmHg (35.0-45.0); ABG PH 7.199 (7.350-7.450); ABG PO2 67.8 mmHg (75.0-100.0); AaDO2 520.1 mmHg; COHb 0.4 % (0.5-1.5); MetHb 0.5 % (0.0-1.5); O2Hb 90.4 % (94.0-97.0); SITE, ABG Right Radial; VENT MODE, BG AC 30 530 90% +12
[2021-02-07] MEDS: THIAMINE HCL 100 MG TABLET PO SCH (08:36)
[2021-02-07] MEDS: CHOLECALCIFEROL 1,000 UNIT TABLET (VIT D3) PO SCH (08:36)
[2021-02-07] MEDS: ZINC SULFATE 220 MG CAPSULE PO SCH (08:36)
[2021-02-07] MEDS: DEXAMETHASONE SOD PHOSPHATE 10 MG/ML VIAL IV SCH (08:38)
[2021-02-07] MEDS: ASCORBIC ACID 500 MG TABLET PO SCH (08:39)
[2021-02-07] MEDS: MIDAZOLAM HCL 100 MG in IV NS 0.9% 80 ML IV PRN (08:58)
[2021-02-07] MEDS ORDERED: SODIUM POLYSTYRENE SULFONATE 15 G/60 ML BOTTLE PO ONE (10:30)
[2021-02-07] MEDS ORDERED: MEROPENEM 500 MG in IV NS 0.9% 50 ML IV SCH (11:00)
[2021-02-07] MEDS ORDERED: VANCOMYCIN 1.25 GM in IV D5W 250 ML IV ONE (12:00)
[2021-02-07] MEDS: Sodium Bicarbonate 100 MEQ in IV D5W 1,000 ML IV SCH (13:14)
[2021-02-07 17:07] LABS: CALCIUM, SERUM 6.6 mg/dL (8.5-10.1); POTASSIUM 5.2 mmol/L (3.5-5.1)
--- NOTE | 2021-02-07 17:10 | NUR ---
MD COMMUNICATION MD CALLED RN REQUESTING ORDERS: ABG AND IMMEDIATE COMMUNICATION UPON RESULTS. RN READ BACK ORDER TO CONFIRM AND WILL ENTER DIRECTED. Addendum: 02/07/21 at 1754 by MADYSON LENTZ RN PAVITHRA
[2021-02-07 17:41] LABS: ABG BASE EXCESS -7.3 mmol/L; ABG OXYGEN SATURATION 91.8 % (92.0-98.5); ABG PH 7.277 (7.350-7.450); ABG PO2 66.1 mmHg (75.0-100.0); AaDO2 532.6 mmHg; COHb 0.5 % (0.5-1.5); MetHb 0.3 % (0.0-1.5); O2Hb 91.1 % (94.0-97.0); SITE, ABG Right Radial
--- NOTE | 2021-02-07 17:50 | NUR ---
MD COMMUNICATION GAVE ORDERS: ABG IN AM, TITRATE FIO2 TO MAINTAIN SPO2 ABOVE 88%. RN READ BACK ORDER TO CONFIRM AND WILL ENTER DIRECTED. Addendum: 02/07/21 at 1754 by MADYSON LENTZ RN PAVITHRA
--- NOTE | 2021-02-07 17:54 | NUR ---
DNP COMMUNICATION, RN INFORMED DNP RUTHANN OF PT GLUCOSE 395. DNP STATED SHE WILL ENTER ORDERS
[2021-02-07] MEDS ORDERED: DEXTROSE 50%-WATER 50 ML DISP.SYRIN IV PRN (18:30)
[2021-02-07] MEDS: MEROPENEM 1 G in IV NS 0.9% 100 ML IV SCH (18:31)
--- NOTE | 2021-02-07 19:30 | NUR ---
RN NOTES PT FOUND IN SEMI FOWLERS POSITION DISPLAYING NO S/S OF DISTRESS, FLACC = 0 AND BILATERAL RISE AND FALL OF CHEST OBSERVED. PT SEDATED, SHERLEY 3. ETT AND MECH VENT PER ORDER. R UA PICC PATIENT AND INTACT. CARTER CATH DRAINING BY GRAVITY BELOW PATIENT. VSS EXCEPT TEMP, SBAR AND REPORT GIVEN TO CLINICAL DATA COORDINATOR RN. ALL QUESTIONS ANSWERED. SAFETY MEASURES IN PLACE, BED LOCKED AND IN LOWEST POSITION, SIDE RAILS UPX2, CALL LIGHT WITHIN REACH, BED ALARM ARMED. PT ENDORSED TO CLINICAL DATA COORDINATOR FOR ARACELIS.
--- NOTE | 2021-02-07 19:45 | NUR ---
ICU/INSPECTOR FINAL ASSEMBLY ELECTRICAL RECIEVED REPORT FROM DAY SHIFT NURSE. SEE FLOWSHEET FOR ASSESSMENT. THERE ARE MANY IV'S THAT ARE ADDRESSED ON THE IV SPREAD SHEET. PT WAS TURNED AND REPOSITIONED FOR COMFORT AND CARE.WILL CONTINUE TO MONITOR THIS PT. NO ACUTE DISTRESS SEEN AT THIS.
--- NOTE | 2021-02-07 20:30 | NUR ---
ICU/PASTE UP COPY CAMERA OPERATOR SISTER OF THE PT WAS HERE. GAVE UPDATE ON PT'S STATUS. WAS HONEST ABOUT THE OUTCOME DUE TO HIS REFUSAL OF TREATMENT OF COVID. WAITING TO BE INTUBATED AND WHAT VENT SETTINGS ARE ABOUT WITH A COVID POSITIVE PT. SISTER WAS DIFFICULT TO REASON WITH.
--- NOTE | 2021-02-07 21:00 | NUR ---
ICU/PROPERTY FIELD ADJUSTER THERE ARE A FEW NEW SKIN ISSUES WHICH ARE ADDRESSED ON THE ASSESSMENT FLOWSHEET. ALSO PHOTO DOCUMENTATION WAS DONE FOR THIS. WELL A WOUND CONSULT WHICH WAS DONE TOO THROUGH THE CHARGE NURSE. ALSO A [facility]CI WAS ORDERED TOO TO HELP WITH ANY FURTHER BREAK DOWN OF SKIN.
--- NOTE | 2021-02-07 22:50 | NUR ---
ICU/ARTISTS' MODEL PT WAS GIVEN ORAL CARE ALONG WITH PM CARE. PT REMAINS ON CURRENT VENT SETTINGS WITH SATURATION AT 88-92%. ALSO AT THIS TIME DRESSING WERE DONE TO NEW SKIN ISSUES. PT WAS TURNED AND REPOSITIONED FOR COMFORT AND CARE. WILL CONTINUE TO MONITOR THIS PT. NO ACUTE DISTRESS SEEN AT THIS TIME.
[2021-02-08] VITALS (79 sets, daily range): BP systolic 82–127; BP diastolic 54–83
[2021-02-08] MEDS: BLOOD SUGAR DIAGNOSTIC 1 EACH STRIP IN SCH ×4 (00:03→17:10)
[2021-02-08] MEDS: INSULIN REGULAR, HUMAN 100 UNIT/ML 3 ML VIAL SQ PRN ×4 (00:06→18:54)
--- NOTE | 2021-02-08 00:10 | NUR ---
ICU/TILLER WORKER COOLING MEASURES ALONG WITH TYLENOL WERE GIVEN FOR TEMP 101.7 WILL CONTINUE TO MONITOR THIS PT AND HIS TEMP.
[2021-02-08] MEDS: NOREPINEPHRINE 32 MG in IV NS 0.9% 250 ML IV PRN (02:07)
--- NOTE | 2021-02-08 04:30 | NUR ---
ICU/PRECISION INSPECTOR PT WAS GIVEN ORAL CARE ALONG WITH AM CARE. PT REMAINS ON CURRENT VENT SETTINGS, WHILE DOING AM CARE, PT HAS APPEARED TO MAYBE ASPIRATED. VOMIT CAME OUT FROM PT'S MOUTH. PT WAS SUCTIONED. SATURATION IS 70'S TO LOW 80'S. WILL CONTINUE TO CLOESLY MONITOR THIS PT. PT WAS TURNED AND REPOSITIONED FOR COMFORT AND CARE. WILL CONTINUE TO MONITOR THIS PT.
[2021-02-08 05:01] LABS: BASOPHILS % (AUTO) 0.1 % (0.0-2.0); EOSINOPHILS % (AUTO) 0.1 % (0.0-6.0); HEMATOCRIT 41 % (39-51); LYMPHOCYTES # (AUTO) 0.4 K/uL (0.8-4.8); LYMPHOCYTES % (AUTO) 3.1 % (20.0-44.0); MEAN CORPUSCULAR HGB CONC 34 g/dl (31.0-36.0); MEAN CORPUSCULAR VOLUME 92 fL (80-96); MONOCYTES # (AUTO) 0.3 K/uL (0.1-1.30); MONOCYTES % (AUTO) 2.4 % (2.0-12.0); NEUTROPHILS # (AUTO) 10.9 K/uL (1.8-8.9); NEUTROPHILS % (AUTO) 94.3 % (43.0-81.0); PLATELET COUNT (AUTO) 133 K/uL (150-450); RED BLOOD CELL COUNT(AUTO) 4.52 MIL/uL (4.5-6.0); WHITE BLOOD COUNT (AUTO) 11.6 K/uL (4.3-11.0)
[2021-02-08 05:14] LABS: CALCIUM, SERUM 7.1 mg/dL (8.5-10.1); CREATININE 1.5 mg/dL (0.6-1.3); PHOSPHORUS 4.1 mg/dL (2.5-4.9); POTASSIUM 4.3 mmol/L (3.5-5.1)
[2021-02-08] MEDS: MEROPENEM 1 G in IV NS 0.9% 100 ML IV SCH ×3 (05:40→21:00)
[2021-02-08] MEDS: ACETAMINOPHEN 325 MG TABLET PO PRN ×2 (05:42→12:33)
--- NOTE | 2021-02-08 06:20 | NUR ---
ICU/HEAVY REPAIRER LEVO WAS BEING TITRATED UP UNTIL PT HAD SOME RESPIRATORY DISTRESS WITH POSSIBLE ASPIRATION FROM VOMITING. ALSO RESPIRATION RATE INCREASED TO 40'S-30'S CHARGE NURSE HAD TO INCREASED VERSED. WILL CLOESLY MONITOR THIS PT.
--- NOTE | 2021-02-08 06:30 | NUR ---
ICU/PLATER HELPER COOLING MEASURES ALONG WITH TYLENOL WERE GIVEN FOR TEMP 102.1 WILL CONTINUE TO MONITOR THIS PT AND HIS TEMP.
--- NOTE | 2021-02-08 06:50 | NUR ---
ICU/ADVERTISING SALES MANAGER CHARGE NURSE RECIEVED CRITICAL LAB VALUES. MAGNESIUM 4. WILL PASS ON TO DAY SHIFT NURSE.
--- NOTE | 2021-02-08 07:40 | NUR ---
ICU/RN PT IS INTUBATED AC-30 MODE,FIO2-90%,PEEP-12. HAS COVID19,PNA.SEDATED WITH VERSED AND FENTANYL.ON LEVOPHED DRIP AND ON IV FLUIDS ORDERED.RIGHT UPPER ARM PICC LINE.OG TUBE CLAMPED.F/C IN PLACE DRAINING WITH MARIA M URINE.SACRAL WOUND DTI,COVERED WITH MEPILEX.T-102.6.GENERALIZED EDEMA PRESENT.LEFT ARM SWOLLEN NEGATIVE FOR DVT. PT HAS BAROTRAUMA POST INTUBATION,NECK SWOLLEN,NO PNEUMOTHORAX. LABS REVIEW. MD NOTIFIED.COOLING MEASURES PROVIDED. SUCTION PROVIDED.REPOSITION FOR COMFORT.
[2021-02-08 08:15] LABS: ABG BASE EXCESS -0.6 mmol/L; ABG OXYGEN SATURATION 89.4 % (92.0-98.5); ABG PCO2 40.9 mmHg (35.0-45.0); ABG PH 7.392 (7.350-7.450); ABG PO2 54.7 mmHg (75.0-100.0); AaDO2 545.1 mmHg; COHb 1.1 % (0.5-1.5); MetHb 0.2 % (0.0-1.5); O2Hb 88.2 % (94.0-97.0); PEEP,BG 12 cm H2O; SITE, ABG Right Radial; VT, ABG 550 mL
[2021-02-08] MEDS: ZINC SULFATE 220 MG CAPSULE PO SCH (08:28)
[2021-02-08] MEDS: DEXAMETHASONE SOD PHOSPHATE 10 MG/ML VIAL IV SCH (08:28)
[2021-02-08] MEDS: ASCORBIC ACID 500 MG TABLET PO SCH (08:28)
[2021-02-08] MEDS: THIAMINE HCL 100 MG TABLET PO SCH (08:28)
[2021-02-08] MEDS: VANCOMYCIN 1 GM in IV D5W 250 ML IV SCH ×2 (08:28→19:44)
[2021-02-08] MEDS: CHOLECALCIFEROL 1,000 UNIT TABLET (VIT D3) PO SCH (08:28)
[2021-02-08] MEDS: ENOXAPARIN SODIUM 40 MG/0.4 ML DISP.SYRIN SQ SCH (08:29)
--- NOTE | 2021-02-08 09:05 | NUR ---
ICU/RN DUE MEDS ARE GIVEN ORDERED.ABG DONE ,TV-500.PT HAS RR-35-36.VERSED AND FENTANYL DRIP INCREASED ORDERED.UNABLE PROVIDE SEDATION VACATION.PT IS NOT STABLE FIO2-90%,PEEP-12.CONTINUE MONITORING.DR ARSHAD SEEN THE PT NEW ORDERS RECEIVED.
[2021-02-08] MEDS: MIDAZOLAM HCL 100 MG in IV NS 0.9% 80 ML IV PRN (10:20)
[2021-02-08] MEDS: FENTANYL CITRATE/PF 2,500 MCG in IV NS 0.9% 200 ML IV PRN ×2 (10:21→20:31)
[2021-02-08] MEDS ORDERED: DEXTROSE 50%-WATER 50 ML DISP.SYRIN IV PRN (12:30)
[2021-02-08] MEDS: Sodium Bicarbonate 100 MEQ in IV D5W 1,000 ML IV SCH (14:10)
[2021-02-08] MEDS: FLUCONAZOLE (100 MG) 100 MG TABLET PO SCH (17:10)
--- NOTE | 2021-02-08 17:20 | NUR ---
ICU/RN PM CARE PROVIDED.PT PLACED ON [facility] .WOUND DRESSING DONE ORDERED.HAS T-102.COOLING BLANKET ON.DUE MEDS ARE GIVEN ORDERED.SUCTION PROVIDED.TUBE FEEDING STARTED ORDERED.PT FIO2-INCREASED TO 100%.CONTINUE MONITORING.
--- NOTE | 2021-02-08 17:31 | NUR ---
RT NOTE: PATIENT RECEIVED ORALLY INTUBATED WITH 7.5 SECURED AT 25CM MID LIP LINE ON MECHANICAL VENT. VENT CHANGES MADE PER MD ORDER. SUCTIONED SMALL AMOUNT OF THIN HERNANDEZ/YELLOW SECRETIONS. AMBU BAG AT [facility].
--- NOTE | 2021-02-08 19:15 | NUR ---
RECEIVED PT ON BED ORALLY INTUBATED AND SEDATED VENT SETTING PER MD, FIO2 100% SPO2 90-92% NO SIGN OF DISTRESS, BEDSIDE MONITOR READS SINUS RHYTHM 80'S, OPAL PICC WITH ONGOING FENTANYL @ 250MCG/HR, VERSED @ 7 MCG/HR NaHCO3 @ 40ML/HR INFUSING WELL, HAVE OGTUBE ON PLACE WITH ONGOING NEPHRO @ 20ML/HR RESIDUAL 5ML, CARTER CATHETER DRAINING YELLOW URINE VIA GRAVITY BED ON LOWEST POSITION AND LOCKED SIDE RAILS UP X2 WILL CONT TO MONITOR
[2021-02-09] VITALS (91 sets, daily range): BP systolic 96–137; BP diastolic 48–86
[2021-02-09] MEDS: MIDAZOLAM HCL 100 MG in IV NS 0.9% 80 ML IV PRN ×2 (00:14→13:33)
[2021-02-09] MEDS: NOREPINEPHRINE 32 MG in IV NS 0.9% 250 ML IV PRN (00:15)
[2021-02-09] MEDS: ACETAMINOPHEN 325 MG TABLET PO PRN ×5 (00:19→17:43)
[2021-02-09] MEDS: BLOOD SUGAR DIAGNOSTIC 1 EACH STRIP IN SCH ×5 (00:28→23:15)
[2021-02-09] MEDS: INSULIN REGULAR, HUMAN 100 UNIT/ML 3 ML VIAL SQ PRN ×4 (00:29→17:37)
[2021-02-09] MEDS: MEROPENEM 1 G in IV NS 0.9% 100 ML IV SCH ×3 (04:45→21:24)
[2021-02-09 04:54] LABS: BASOPHILS % (AUTO) 0.1 % (0.0-2.0); EOSINOPHILS % (AUTO) 0.1 % (0.0-6.0); HEMATOCRIT 39 % (39-51); HEMOGLOBIN 12.8 g/dL (13.5-17.5); LYMPHOCYTES # (AUTO) 0.4 K/uL (0.8-4.8); MEAN CORPUSCULAR HGB CONC 33 g/dl (31.0-36.0); MEAN CORPUSCULAR VOLUME 92 fL (80-96); MONOCYTES # (AUTO) 0.3 K/uL (0.1-1.30); MONOCYTES % (AUTO) 2.3 % (2.0-12.0); NEUTROPHILS # (AUTO) 12.9 K/uL (1.8-8.9); NEUTROPHILS % (AUTO) 94.5 % (43.0-81.0); PLATELET COUNT (AUTO) 120 K/uL (150-450); RED BLOOD CELL COUNT(AUTO) 4.16 MIL/uL (4.5-6.0); WHITE BLOOD COUNT (AUTO) 13.6 K/uL (4.3-11.0)
[2021-02-09 05:09] LABS: CREATININE 1.3 mg/dL (0.6-1.3); MAGNESIUM 3.9 mg/dL (1.8-2.4); PHOSPHORUS 3.4 mg/dL (2.5-4.9); POTASSIUM 5.3 mmol/L (3.5-5.1)
[2021-02-09] MEDS: FENTANYL CITRATE/PF 2,500 MCG in IV NS 0.9% 200 ML IV PRN ×2 (06:55→16:48)
--- NOTE | 2021-02-09 07:05 | NUR ---
RN NOTES RECEIVED PT INTUBATED , SEDATED, ON VENT, TOLERATING VENT SETTING WELL, SEDATED WITH VERSED AND FENTANYL.ON LEVOPHED DRIP FOR BP SUPPORT, BICARB DRIP AT 40CC/HR RUNNING , LEFT UPPER ARM PICC LINE SITE CLEAN, DRY AND INTACT, OGT AT 20CC/HR RUNNING , NO RESIDUAL NOTED, F/C IN PLACE DRAINING WITH MARIA M COLOR URINE. T= 101.2 ,PT ON COOLING BLANKET, GENERALIZED EDEMA PRESENT. WILL CONTINUE TO MONITOR.
--- NOTE | 2021-02-09 07:22 | NUR ---
PT ON BED STILL ORALLY 9INTUBATED VENT SETTING PER MD FIO2 100% SPO2 93-96% NO DISTRESS NOTED STILL HAVEING ELEVATED TEMP COOLING BLANKET AT PLACED WITH LATEST TEMP 101.3 PRN TYLENOL WAS GIVEN, STILL ON VERSED @ 70 MCG/HR FENTANYL @ 250 MCG/HR LEVOPHED @ 0.3 MCG/KG/MIN AND NaHCO3 @ 40ML/HR INFUSING VIA GINGER PICC, BED ON LOWEST POSITION AND LOCKED SIDE RAILS UP X2 WILL ENDORSED TO AM SHIFT NURSE
[2021-02-09] MEDS: VANCOMYCIN 1 GM in IV D5W 250 ML IV SCH (08:19)
[2021-02-09] MEDS: DEXAMETHASONE SOD PHOSPHATE 10 MG/ML VIAL IV SCH (08:19)
[2021-02-09] MEDS: ZINC SULFATE 220 MG CAPSULE PO SCH (08:20)
[2021-02-09] MEDS: FLUCONAZOLE (100 MG) 100 MG TABLET PO SCH (08:20)
[2021-02-09] MEDS: THIAMINE HCL 100 MG TABLET PO SCH (08:20)
[2021-02-09] MEDS: CHOLECALCIFEROL 1,000 UNIT TABLET (VIT D3) PO SCH (08:20)
[2021-02-09] MEDS: ASCORBIC ACID 500 MG TABLET PO SCH (08:20)
[2021-02-09 08:30] LABS: ABG BASE EXCESS 2.9 mmol/L; ABG OXYGEN SATURATION 93.9 % (92.0-98.5); ABG PCO2 68.2 mmHg (35.0-45.0); ABG PH 7.283 (7.350-7.450); AaDO2 569.8 mmHg; COHb 0.6 % (0.5-1.5); MetHb 0.3 % (0.0-1.5); O2Hb 93.1 % (94.0-97.0); SITE, ABG Right Radial; VENT MODE, BG ac 30 500 100% +12
[2021-02-09] MEDS: ENOXAPARIN SODIUM 40 MG/0.4 ML DISP.SYRIN SQ SCH (10:27)
--- NOTE | 2021-02-09 12:00 | NUR ---
RN NOTES ET TUBE CARE DONE, PT ON LEVO FOR BP SUPPORT , VP PURCHASING NOTIFIED REGARDING [id number]. COOLING MEASURES INPLACED , PT'S SISTER AT THE BEDSIDE, CONTINUE TO MONITOR.
[2021-02-09] MEDS ORDERED: SODIUM POLYSTYRENE SULFONATE 15 G/60 ML BOTTLE PO ONE (12:30)
[2021-02-09] MEDS: Sodium Bicarbonate 100 MEQ in IV D5W 1,000 ML IV SCH (13:05)
--- NOTE | 2021-02-09 18:00 | NUR ---
RN NOTES COOLING BLANKET ON , T=100.8. ET TUBE SUCTIONING DONE, PT ON LEVO AT .08MCG/KG/MIN, PT ON VERSED AND FENTANYL FOR SEDATION , NO SIGNIFICANT CHANGES NOTED ON THIS SHIFT , WILL ENDORSE TO MAINTENANCE OF WAY SUPERINTENDENT NURSER FOR CONTINUITY OF CARE
[2021-02-09] MEDS: VANCOMYCIN 1.25 GM in IV D5W 250 ML IV SCH (21:23)
[2021-02-10] VITALS (95 sets, daily range): BP systolic 80–121; BP diastolic 51–77
[2021-02-10] MEDS: FENTANYL CITRATE/PF 2,500 MCG in IV NS 0.9% 200 ML IV PRN ×3 (03:57→21:36)
[2021-02-10] MEDS: MIDAZOLAM HCL 100 MG in IV NS 0.9% 80 ML IV PRN ×2 (04:15→18:03)
[2021-02-10 04:49] LABS: EOSINOPHILS % (AUTO) 0.1 % (0.0-6.0); HEMATOCRIT 35 % (39-51); HEMOGLOBIN 11.7 g/dL (13.5-17.5); LYMPHOCYTES # (AUTO) 0.5 K/uL (0.8-4.8); LYMPHOCYTES % (AUTO) 4.6 % (20.0-44.0); MEAN CORPUSCULAR HGB CONC 33 g/dl (31.0-36.0); MEAN CORPUSCULAR VOLUME 94 fL (80-96); MONOCYTES # (AUTO) 0.4 K/uL (0.1-1.30); MONOCYTES % (AUTO) 3.3 % (2.0-12.0); NEUTROPHILS # (AUTO) 10.2 K/uL (1.8-8.9); PLATELET COUNT (AUTO) 105 K/uL (150-450); RED BLOOD CELL COUNT(AUTO) 3.72 MIL/uL (4.5-6.0); WHITE BLOOD COUNT (AUTO) 11.1 K/uL (4.3-11.0)
[2021-02-10 05:19] LABS: CALCIUM, SERUM 7.2 mg/dL (8.5-10.1); CREATININE 1.2 mg/dL (0.6-1.3); MAGNESIUM 3.9 mg/dL (1.8-2.4); PHOSPHORUS 3.4 mg/dL (2.5-4.9); POTASSIUM 5.2 mmol/L (3.5-5.1)
--- NOTE | 2021-02-10 05:45 | NUR ---
RN NOTES DR. ARSHAD CALLED AND ASKED THE UPDATE TO PATIENT CONDITION. NO CHANGE FROM YESTERDAY VENT SETTING THE SAME WITH FIO2 85% SATURATION BETWEEN 90-93% WITH GTF RESIDUAL <150 AT THIS TIME. PER MD TO INCREASED FEEDING TO 40CC/HR AND DO ABG TODAY, NOTED AND CARRIED OUT ORDER.
[2021-02-10] MEDS: MEROPENEM 1 G in IV NS 0.9% 100 ML IV SCH ×3 (05:56→21:23)
[2021-02-10] MEDS: BLOOD SUGAR DIAGNOSTIC 1 EACH STRIP IN SCH ×5 (06:00→23:51)
--- NOTE | 2021-02-10 07:00 | NUR ---
RN NOTES CHARGE NURSE RECEIVED A REPORT FROM IR THAT PATIENT HAS RIGHT MODERATE PNEUMOTHORAX. AWAITING FOR THE COMPUTER RESULT BUT INFORMED SHANA MACKENZIE NP. ENDORSED CONTINUITY OF CARE TO AM NURSE.
[2021-02-10] MEDS: INSULIN REGULAR, HUMAN 100 UNIT/ML 3 ML VIAL SQ PRN ×4 (07:03→23:54)
--- NOTE | 2021-02-10 07:30 | NUR ---
RN OPENING NOTE ORALLY INTUBATED PT, ON VENT SETTINGS PER MD ORDER: 7.09/17 AT THE LIP, AC 30, TV 500, FIO2 85%, PEEP 12, TOLERATING VENT SETTINGS WELL, BREATHING EVEN AND UNLABORED, SPO2 92%, NO S/S OF RESP DISTRESS OR SOB. PT SEDATED ON VERSED @ 6 MG/HR AND FENTANYL 250 MCG/HR. PT BEDSIDE MONITOR SINUS RHYTHM HR 60. PT TEMP 98.3 F, NO FEVER. PER RN REPORT, RADIOLOGY CALLED IN CXR RESULT OF MODERATE PNEUMOTHORAX, WILL INFORM HOSPITALIST. PT HAS GINGER PICC ALSO INFUSING LEVO @ 0.04 MCG/KG/MIN AND SODIUM BICARB @ 40ML/HR. PT ALSO RUNNING NEPRO @ 40 ML/HR VIA OGT, OGT AUSCULTATED FOR POSITIVE PLACEMENT, FLUSHED AND IS PATENT, NO RESIDUALS NOTED. PT HAS SACRAL BLISTER, NOT OPEN, MEPILEX. PT CARTER CATH DRAINING MARIA M URINE TO GRAVITY. ALL PT SAFETY PRECAUTIONS IN PLACE, WILL CONT TO MONITOR
--- NOTE | 2021-02-10 07:50 | NUR ---
WOUND CARE CONSULT: REVIEWED CHART, NURSING DOCUMENTATION AND PHOTOS WHICH INDICATE DISCOLORATIONS TO BUTTOCKS AND GLUTEAL CREASE. PT NOTED TO HAVE GENERALIZED EDEMA PER RN REPORT WITH INTACT BLISTER TO GLUTEAL CREASE AREA. PT NOTED TO HAVE MULTIPLE CO-MORBIDITIES INCLUDING HYPOXEMIC RESPIRATORY FAILURE SECONDARY TO COVID 19 PNEUMONIA (CURRENTLY INTUBATED), ACUTE RENAL FAILURE, THROMBOCYTOPENIA AND RECURRENT FEVERS. DUE TO MULTIPLE CO-MORBIDITIES FURTHER SKIN ISSUES/BREAKDOWN MAY BE UNAVOIDABLE. RECOMMENDATIONS MADE FOR SKIN PROTECTION. DISCUSSED WITH NURSING STAFF. PT IS ON FIRST STEP JANESSA JANSENSS MATDIMPLE. IN AGREEMENT WITH PLAN OF CARE.
[2021-02-10 08:02] LABS: ABG BASE EXCESS 3.2 mmol/L; ABG OXYGEN SATURATION 88.3 % (92.0-98.5); ABG PCO2 57.2 mmHg (35.0-45.0); ABG PH 7.341 (7.350-7.450); AaDO2 491.7 mmHg; COHb 0.8 % (0.5-1.5); MetHb 0.3 % (0.0-1.5); O2Hb 87.3 % (94.0-97.0); PEEP,BG 12 cm H2O; SITE, ABG Right Radial; VENT MODE, BG AC 85%; VT, ABG 500 mL
[2021-02-10] MEDS: FLUCONAZOLE (100 MG) 100 MG TABLET PO SCH (08:29)
[2021-02-10] MEDS: CHOLECALCIFEROL 1,000 UNIT TABLET (VIT D3) PO SCH (08:29)
[2021-02-10] MEDS: ASCORBIC ACID 500 MG TABLET PO SCH (08:30)
[2021-02-10] MEDS: VANCOMYCIN 1.25 GM in IV D5W 250 ML IV SCH ×2 (08:30→19:30)
[2021-02-10] MEDS: THIAMINE HCL 100 MG TABLET PO SCH (08:30)
[2021-02-10] MEDS: ZINC SULFATE 220 MG CAPSULE PO SCH (08:30)
[2021-02-10] MEDS: DEXAMETHASONE SOD PHOSPHATE 10 MG/ML VIAL IV SCH (08:30)
--- NOTE | 2021-02-10 08:45 | NUR ---
RN NOTE F/U CXR ORDERED/REVIEWED, PER DR ARSHAD, NO NEED FOR CHEST TUBE INSERTION AT THIS MOMENT.
[2021-02-10] MEDS: ENOXAPARIN SODIUM 40 MG/0.4 ML DISP.SYRIN SQ SCH (09:10)
--- NOTE | 2021-02-10 09:10 | NUR ---
RN NOTE PER DIEGO FRANZ TO GIVE PT LOVENOX 40MG, PLT 105, H/H STABLE, NO SIGNS OF BLEEDING
--- NOTE | 2021-02-10 09:16 | NUR ---
Clinical Social Work Note Patient and family were initially resisting prescribed treatment for COVID and case was referred by clinic administrator due to this. Today per Kierra FULTON, family are now cooperating with care and agreeable to patient taking Actemra as treatment for his illness.
[2021-02-10] MEDS ORDERED: NEPRO 1,000 ML BOTTLE GT PRN (10:30)
[2021-02-10] MEDS: NOREPINEPHRINE 8 MG in IV NS 0.9% 242 ML IV PRN (11:01)
--- NOTE | 2021-02-10 11:16 | NUR ---
FIO2 INCREASED FROM 85 TO 90% DUE TO 86% SATURATION. Addendum: 02/10/21 at 1117 by MIKE BOLAÑOS RT Amended: Links added.
[2021-02-10] MEDS: Sodium Bicarbonate 100 MEQ in IV D5W 1,000 ML IV SCH (13:13)
[2021-02-10] MEDS: ACETAMINOPHEN 325 MG TABLET PO PRN ×2 (16:24→23:36)
--- NOTE | 2021-02-10 17:45 | NUR ---
RN NOTE PT'S SISTER DIVINA BROUGHT A CHEMISTRY RESEARCH ASSISTANT TO VISIT THE PT, GRACE ALEXIS SAID THIS WAS OKAY. PAM IS NOT COVID VACCINATED, I WARNED HIM OF THE RISK HE WAS TAKING IN WHICH HE UNDERSTOOD FULLY PRIOR TO ENTERING. THE CHEMISTRY RESEARCH ASSISTANT PUT ON A N95 WITH SURGICAL MASK OVER IT, FACE SHIELD, GLOVES AND WORE A GOWN PRIOR TO ENTERING THE ROOM. THE CHEMISTRY RESEARCH ASSISTANT WAS IN THE PT ROOM FOR LESS THAN 1 MINUTE
--- NOTE | 2021-02-10 19:00 | NUR ---
DRAFTER TOPOGRAPHICAL CLOSING NOTE PT ON VENT SETTINGS PER MD ORDER, ONLY CHANGE IS FIO2 OF 100% NOW, SPO2 92%, BREATHING EVEN AND UNLABORED, NO S/S OF SOB. PT HAD T MAX OF 99.9 F, TYLENOL GIVEN, TEMP OF 98.9 F NOW. PT INFUSING VERSED @ 7 MG/HR, FENTANYL @ 250 MCG/HR, AND LEVO @ 0.08 MCG/KG/MIN. ALL PT SAFETY PRECAUTIONS IN PLACE, ARACELIS ENDORSED TO COTA RN
--- NOTE | 2021-02-10 19:25 | NUR ---
RN OPENING NOTE REC'D PT IN BED, ORALLY INTUBATED PT, VENT SETTINGS REC'D 7.5/25 AT THE LIP, AC 30, TV 500, FIO2 100%, PEEP 12, TOLERATING VENT SETTINGS WELL, BREATHING EVEN AND UNLABORED, SPO2 90%, NO S/S OF RESP DISTRESS OR SOB. PT SEDATED ON VERSED @ 7MG/HR AND FENTANYL 250 MCG/HR. PT BEDSIDE MONITOR SINUS RHYTHM HR 60. PT HAS GINGER PICC FLUSHED ASEPTICALLY, WITH GOOD BLOOD RETURN NOTED. INFUSING LEVO @ 0.08 MCG/KG/MIN. PT HAS NEPRO @ 40 ML/HR VIA OGT, OGT AUSCULTATED FOR POSITIVE PLACEMENT, FLUSHED AND IS PATENT, NO RESIDUAL NOTED. CARTER CATH DRAINING MARIA M URINE DRAINING GRAVITY. ALL PT SAFETY PRECAUTIONS IN PLACE, HOB ELEVATED. BED LOCKED IN LOWEST POSITION. SIDE RAILS UP X3. WILL CONT TO MONITOR
[2021-02-10] MEDS: IV NS 0.9% 250 ML IV PRN (23:01)
--- NOTE | 2021-02-10 23:40 | NUR ---
ML NOTE: TEMP TEMP OF 100.1 NOTED, ADMINISTERED 650 MG TYLENOL ORDERED. COOLING MEASURES IN PLACE. ICE PACKS PLACED IN GROIN AND AXILLARY WILL CONT TO MONITOR Addendum: 02/11/21 at 0352 by SAVI RODRIGUEZ RN TEMP AT THIS TIME IS 99.3 TRENDING DOWN
[2021-02-11] VITALS (92 sets, daily range): BP systolic 90–131; BP diastolic 50–88
[2021-02-11] MEDS ORDERED: DEXTROSE 50%-WATER 50 ML DISP.SYRIN IV PRN
--- NOTE | 2021-02-11 00:06 | NUR ---
RN NOTE: HOLD TUBE FEEDING PER SISTER DIVINA, PT HAS DAIRY ALLERGY AND CANNOT RECEIVE TF NEPRO BECAUSE HE WILL HAVE AN INCREASED PRODUCTION OF MUCUS/CAUSE MORE RESP PROBLEMS. INFORMED ROLL UP HELPER GISEL, HOLD TF AT THIS TIME AND WAIT FOR DIETARY CONSULT TOMORROW. ORDERS FOR CHANGE TO NPO SSI Q6H AT THIS TIME.
[2021-02-11] MEDS: MEROPENEM 1 G in IV NS 0.9% 100 ML IV SCH ×3 (04:09→21:02)
[2021-02-11 04:27] LABS: CALCIUM, SERUM 7.6 mg/dL (8.5-10.1); POTASSIUM 5.5 mmol/L (3.5-5.1)
[2021-02-11] MEDS: BLOOD SUGAR DIAGNOSTIC 1 EACH STRIP IN SCH ×4 (05:13→23:17)
[2021-02-11] MEDS: INSULIN REGULAR, HUMAN 100 UNIT/ML 3 ML VIAL SQ PRN ×3 (05:20→23:39)
--- NOTE | 2021-02-11 06:05 | NUR ---
RT NOTE PT REC'D ORALLY INTUBATED VIA ETT SZ #7.5 SECURED AT 25CM AT THE LIPLINE. PT ON [facility] VENT ON AC MODE SETTINGS CHARTED. PT SX'D FOR SMALL AMT OF THICK YELLOW SECRETIONS. ETT IS PATENT AND SECURED. ALARMS ARE SET AND AUDIBLE. AMBU BAG IS BEDSIDE. VENT PLUGGED INTO RED OUTLET. WILL CONTINUE TO MONITOR CLOSELY. Addendum: 02/11/21 at 0605 by GEORGINA VASQUEZ RT Amended: Links added.
[2021-02-11] MEDS: NOREPINEPHRINE 8 MG in IV NS 0.9% 242 ML IV PRN (06:15)
[2021-02-11] MEDS: MIDAZOLAM HCL 100 MG in IV NS 0.9% 80 ML IV PRN ×2 (06:32→21:02)
--- NOTE | 2021-02-11 07:25 | NUR ---
LINUX SYSTEMS ADMINISTRATOR CLOSING NOTE NO SIGNIFICANT CHANGES IN PT CONDITION, PT NOT IN ANY DISTRESS. SAME VENT SETTINGS, O2 SAT IS 93% AT THIS TIME. BED BATH DONE, WOUND CARE DONE, PT REMAINS ON LEVO AT 0.04MCG/KG/MIN, VERSED AT 7MG/HR, AND FENTANYL AT 250 MCG SAFETY MEASURES OBSERVED THROUGHOUT SHIFT. GAVE REPORT TO DAY SHIFT RN FOR CONTINUATION OF CARE.
--- NOTE | 2021-02-11 07:40 | NUR ---
ICU/RN PT IS INTUBATED ON THE VENT AC -30,FIO2-100%,PEEP-12,SAT O2-92%.SEDATED WITH VERSED AND FENTANYL.ON LEVOPHED,DRIP.T-99.4.LEFT UPPER ARM PICC LINE.OG TUBE CLAMPED.F/C IN PLACE DRAINING WITH MARIA M COLOR URINE.GENERALIZED EDEMA PRESENT.LABS REVIEW.K-5.5.MD NOTIFIED.SUCTION PROVIDED.REPOSITION FOR COMFORT.
[2021-02-11] MEDS: FENTANYL CITRATE/PF 2,500 MCG in IV NS 0.9% 200 ML IV PRN ×3 (07:41→23:00)
[2021-02-11 08:19] LABS: ABG BASE EXCESS 6.6 mmol/L; ABG OXYGEN SATURATION 90.6 % (92.0-98.5); ABG PCO2 47.5 mmHg (35.0-45.0); ABG PH 7.443 (7.350-7.450); ABG PO2 60.6 mmHg (75.0-100.0); AaDO2 604.9 mmHg; COHb 0.8 % (0.5-1.5); MetHb 0.2 % (0.0-1.5); O2Hb 89.7 % (94.0-97.0); PEEP,BG 12 cm H2O; SITE, ABG Right Femoral; VT, ABG 500 mL
[2021-02-11] MEDS: THIAMINE HCL 100 MG TABLET PO SCH (08:24)
[2021-02-11] MEDS: CHOLECALCIFEROL 1,000 UNIT TABLET (VIT D3) PO SCH (08:24)
[2021-02-11] MEDS: ASCORBIC ACID 500 MG TABLET PO SCH (08:24)
[2021-02-11] MEDS: DEXAMETHASONE SOD PHOSPHATE 10 MG/ML VIAL IV SCH (08:24)
[2021-02-11] MEDS: FLUCONAZOLE (100 MG) 100 MG TABLET PO SCH (08:24)
[2021-02-11] MEDS: ENOXAPARIN SODIUM 40 MG/0.4 ML DISP.SYRIN SQ SCH (08:26)
[2021-02-11] MEDS: ZINC SULFATE 220 MG CAPSULE PO SCH (08:26)
--- NOTE | 2021-02-11 09:00 | NUR ---
ICU/RN DUE MEDS ARE GIVEN ORDERED. UNABLE PROVIDE SEDATION VACATION .PT IS UNSTABLE. VENT SETTING IS AC-30,FIO2-100%,PEEP-12. SAT O2-88%.ON HIGH DOSE OF VERSED AND FENTANYL. DR ARSHAD SEEN THE PT. CONTINUE MONITORING.
[2021-02-11] MEDS: VANCOMYCIN 1.25 GM in IV D5W 250 ML IV SCH ×2 (09:30→19:45)
[2021-02-11] MEDS: ACETAMINOPHEN 325 MG TABLET PO PRN (13:33)
[2021-02-11] MEDS ORDERED: DEXTROSE 50%-WATER 50 ML DISP.SYRIN IVP ONE (14:30)
[2021-02-11] MEDS ORDERED: INSULIN REGULAR, HUMAN 100 UNIT/ML 10 ML VIAL IV ONE (14:30)
[2021-02-11] MEDS ORDERED: SODIUM POLYSTYRENE SULFONATE 15 G/60 ML BOTTLE NG ONE (14:30)
--- NOTE | 2021-02-11 15:00 | NUR ---
ICU/RN T-100.8. TYLENOL VIA OG TUBE GIVEN ORDERED. COOLING BLANKET ON.K-5.5.10 UNITS OF REGULAR INSULIN IV GIVEN ,1 AMP OF D50% IV GIVEN .KAYEXALATE GIVEN.SAT O2 DECREASED TO 75%. FENTANYL INCREASED TO 350 MCG/HR MAX DOSE. CONTINUE MONITORING.
--- NOTE | 2021-02-11 18:00 | NUR ---
ICU/RN PM CARE PROVIDED.DUE MEDS ARE GIVEN ORDERED.T-99.9.COOLING BLANKET IS ON.ON MAX DOSE OF FENTANYL AND VERSED.SAT O2-92%.REPOSITION FOR COMFORT.CONTINUE MONITORING.
--- NOTE | 2021-02-11 19:05 | NUR ---
RECEIVED PT ON BED ORALLY INTUBATED AND SEDATED VENT SETTING PER MD, FIO2 100% SPO2 90% NO SIGN OF DISTRESS, BEDSIDE MONITOR READS SINUS RHYTHM 80'S, GINGER PICC WITH ONGOING FENTANYL @ 350MCG/HR, VERSED @ 7 MCG/HR LEVOPHED @0.05 MCG/KG/MIN INFUSING WELL, HAVE OGTUBE ON PLACE WITH ONGOING ENSURE HARVEST@ 20 ML/HR RESIDUAL 5ML, CARTER CATHETER DRAINING YELLOW URINE VIA GRAVITY BED, COOLING BLANKET AT PLACE DUE TO TEMP >99F ON LOWEST POSITION AND LOCKED SIDE RAILS UP X2 WILL CONT TO MONITOR
--- NOTE | 2021-02-11 20:24 | NUR ---
RT NOTES Pt was orally intubated with 7.5 ETT secured @ 25 cm lip line. Pt on [facility] vent. with settings of 30 rate, 500 tidal volume, 100 % fio2, and PEEP 12. Airway is patent , midline and secured. Ambubag @ bedside. Alarms are on and audible. Vent is plugged into red outlet. Addendum: 02/12/21 at 0641 by ALETHA DUVALL RT Amended: Links added.
[2021-02-12] VITALS (96 sets, daily range): BP systolic 87–122; BP diastolic 49–70
--- NOTE | 2021-02-12 02:15 | NUR ---
PT ON BED STILL SEDATED ON ETT/VENT SETTING PER MD FIO2 100% SPO2 90-91% NO SIGN OF RESPIRATORY DISTRESS NOTED, DUE MEDS GIVEN, NO SIGNIFICANT CHANGES ON CONDITION SINCE THE BEGINNING OF THE SHIFT STILL ON VERSED @ 7MCG/HR, FENTANYL @ 350 MCG/HR AND LEVOPHED @0.05 MCG/KG/MIN INFUSING VIA GINGER PICC, WILL CONT TO MONITOR THE PT
[2021-02-12] MEDS: MEROPENEM 1 G in IV NS 0.9% 100 ML IV SCH ×3 (04:48→21:14)
[2021-02-12 05:05] LABS: CALCIUM, SERUM 7.5 mg/dL (8.5-10.1); CREATININE 0.9 mg/dL (0.6-1.3); POTASSIUM 5.7 mmol/L (3.5-5.1)
[2021-02-12] MEDS: BLOOD SUGAR DIAGNOSTIC 1 EACH STRIP IN SCH ×4 (05:20→23:36)
[2021-02-12] MEDS: INSULIN REGULAR, HUMAN 100 UNIT/ML 3 ML VIAL SQ PRN ×4 (05:21→23:39)
[2021-02-12] MEDS: NOREPINEPHRINE 8 MG in IV NS 0.9% 242 ML IV PRN (06:01)
[2021-02-12] MEDS: FENTANYL CITRATE/PF 2,500 MCG in IV NS 0.9% 200 ML IV PRN ×3 (06:31→22:30)
--- NOTE | 2021-02-12 06:56 | NUR ---
PT ON BED STILL ORALLY 9INTUBATED VENT SETTING PER MD FIO2 100% SPO2 88-91% NO DISTRESS NOTED STILL LATEST TEMP 98.9 STILL ON VERSED @ 7 MCG/HR FENTANYL @ 300 MCG/HR LEVOPHED @ 0.05 MCG/KG/MIN AND INFUSING VIA GINGER PICC,ALL DUE MEDS GIVEN, NO SIGNIFICANT CHANGES ON CONDITION NOTED SINCE THE BEGINNING OF THE SHIFT BED ON LOWEST POSITION AND LOCKED SIDE RAILS UP X2 WILL ENDORSED TO AM SHIFT NURSE
[2021-02-12] MEDS: IV NS 0.9% 250 ML IV PRN (07:04)
--- NOTE | 2021-02-12 07:30 | NUR ---
RN NOTES PT FOUND SUPINE DISPLAYING NO S/S OF ACUTE DISTRESS, FLACC = 0 AND BILATERAL RISE AND FALL OF THE CHEST IS OBSERVED. VENT SET TO MD ORDER, L UA PICC PATIENT AND INTACT, CARTER CATH IS BELOW PT DRAINING BY GRAVITY. SHERLEY SEDATION IS 3. VSS, RN WILL TREAT AND MONITOR THROUGHOUT SHIFT. SAFETY MEASURES IN PLACE, BED LOCKED AND IN LOWEST POSITION, SIDE RAILS UPX3, CALL LIGHT WITHIN REACH, BED ALARM ARMED.
[2021-02-12 08:08] LABS: ABG BASE EXCESS 7.1 mmol/L; ABG OXYGEN SATURATION 89.6 % (92.0-98.5); ABG PCO2 63.2 mmHg (35.0-45.0); ABG PH 7.355 (7.350-7.450); ABG PO2 59.8 mmHg (75.0-100.0); COHb 1.1 % (0.5-1.5); MetHb 0.3 % (0.0-1.5); O2Hb 88.3 % (94.0-97.0); SITE, ABG Right Radial
[2021-02-12] MEDS: ASCORBIC ACID 500 MG TABLET PO SCH (08:29)
[2021-02-12] MEDS: CHOLECALCIFEROL 1,000 UNIT TABLET (VIT D3) PO SCH (08:29)
[2021-02-12] MEDS: VANCOMYCIN 1.25 GM in IV D5W 250 ML IV SCH ×2 (08:29→19:47)
[2021-02-12] MEDS: DEXAMETHASONE SOD PHOSPHATE 10 MG/ML VIAL IV SCH (08:29)
[2021-02-12] MEDS: ZINC SULFATE 220 MG CAPSULE PO SCH (08:29)
[2021-02-12] MEDS: THIAMINE HCL 100 MG TABLET PO SCH (08:29)
[2021-02-12] MEDS: FLUCONAZOLE (100 MG) 100 MG TABLET PO SCH (08:29)
[2021-02-12] MEDS ORDERED: NEPRO 1,000 ML BOTTLE GT PRN ×2 (08:30→13:38)
[2021-02-12] MEDS: ENOXAPARIN SODIUM 40 MG/0.4 ML DISP.SYRIN SQ SCH (08:31)
[2021-02-12] MEDS: MIDAZOLAM HCL 100 MG in IV NS 0.9% 80 ML IV PRN (10:44)
[2021-02-12] MEDS ORDERED: DEXTROSE 50%-WATER 50 ML DISP.SYRIN IVP ONE (13:30)
[2021-02-12] MEDS ORDERED: SODIUM POLYSTYRENE SULFONATE 15 G/60 ML BOTTLE NG ONE (13:30)
[2021-02-12] MEDS ORDERED: IV D5W 1,000 ML IV ONE (13:30)
[2021-02-12] MEDS ORDERED: INSULIN REGULAR, HUMAN 100 UNIT/ML 10 ML VIAL IV ONE (13:30)
[2021-02-12] MEDS: ACETAMINOPHEN 325 MG TABLET PO PRN ×2 (16:46→23:33)
--- NOTE | 2021-02-12 19:02 | NUR ---
RECEIVED PT ON BED ORALLY INTUBATED AND SEDATED VENT SETTING PER MD, FIO2 100% SPO2 86-89% NO SIGN OF DISTRESS, BEDSIDE MONITOR READS SINUS RHYTHM 80'S, GINGER PICC WITH ONGOING FENTANYL @ 300MCG/HR, VERSED @ 7 MCG/HR LEVOPHED @0.05 MCG/KG/MIN D5W @ 50 ML/HR INFUSING WELL, HAVE OGTUBE ON PLACE WITH ONGOING KATEFARM @ 30 ML/HR RESIDUAL 10ML, CARTER CATHETER DRAINING YELLOW URINE VIA GRAVITY BED, COOLING BLANKET AT PLACE DUE TO TEMP >100F ON LOWEST POSITION AND LOCKED SIDE RAILS UP X2 WILL CONT TO MONITOR
--- NOTE | 2021-02-12 19:09 | NUR ---
RN NOTES PT FOUND SUPINE DISPLAYING NO S/S OF ACUTE DISTRESS, FLACC = 0 AND BILATERAL RISE AND FALL OF THE CHEST IS OBSERVED. VENT SET TO ORDER, L UA PICC PATIENT AND INTACT, CARTER CATH IS BELOW PT DRAINING BY GRAVITY. SHERLEY SEDATION IS 3. COOLING BLANKET REAPPLIED, 100.9 F TEMP POST TYLENOL. VSS, SBAR AND REPORT GIVEN TO PHYSICIAN OFFICE NURSE RN. ALL QUESTIONS ANSWERED. SAFETY MEASURES IN PLACE, BED LOCKED AND IN LOWEST POSITION, SIDE RAILS UPX3, CALL LIGHT WITHIN REACH, BED ALARM ARMED. PT ENDORSED FOR ARACELIS.
--- NOTE | 2021-02-12 20:16 | NUR ---
RECEIVED PT INTUBATED ON [facility] VENT. 7.5 ETT SECURED AT 25CM AT THE LIP. PT TOLERATING VENT SETTINGS. PT IS ON FIO2 100%, PEEP OF 12. O2 SAT 87-88% RN AWARE. VENT ALARMS SET AND AUDIBLE. ETT CUFF CHECKED. CONTINUE TO MONITOR CLOSELY. Addendum: 02/12/21 at 2019 by ANA CRISTINA CHRISTY RT Amended: Links added.
[2021-02-13] VITALS (95 sets, daily range): BP systolic 74–148; BP diastolic 41–92
[2021-02-13] MEDS: MIDAZOLAM HCL 100 MG in IV NS 0.9% 80 ML IV PRN ×2 (01:05→14:42)
[2021-02-13 04:55] LABS: CALCIUM, SERUM 7.5 mg/dL (8.5-10.1); CREATININE 0.9 mg/dL (0.6-1.3); POTASSIUM 5.5 mmol/L (3.5-5.1)
[2021-02-13] MEDS: MEROPENEM 1 G in IV NS 0.9% 100 ML IV SCH ×3 (05:12→21:48)
[2021-02-13] MEDS: INSULIN REGULAR, HUMAN 100 UNIT/ML 3 ML VIAL SQ PRN ×4 (05:27→22:51)
[2021-02-13] MEDS: BLOOD SUGAR DIAGNOSTIC 1 EACH STRIP IN SCH ×4 (05:27→23:01)
[2021-02-13] MEDS ORDERED: NOREPINEPHRINE 8MG/250ML RTU 250 ML IV ONE (05:35)
[2021-02-13] MEDS ORDERED: [UNRECOGNIZED DRUG - OTHER] NG PRN (06:00)
[2021-02-13] MEDS: NOREPINEPHRINE 8 MG in IV NS 0.9% 242 ML IV PRN ×2 (06:06→22:53)
--- NOTE | 2021-02-13 07:05 | NUR ---
RN NOTES RECEIVED PT ON BED ORALLY INTUBATED AND SEDATED, TOLERAING VENT SETTING WELL, FIO2 100% SPO2 IN LOW 90'S , NO SIGN OF DISTRESS, BEDSIDE MONITOR READS SINUS RHYTHM 80'S, GINGER PICC WITH ONGOING FENTANYL AND VERSED FOR SEDATION . LEVOPHED @0.05 MCG/KG/MIN, D5W @ 50 ML/HR INFUSING WELL, TF KATEFARM @ 30 ML/HR RUNNING , NO RESIDUAL NOTED, CARTER CATHETER DRAINING YELLOW URINE VIA GRAVITY , T= 99.6 AT THIS TIME, BED LOCKED AND IN LOWEST POSITION, SIDE RAILS UP X3, WILL CONT TO MONITOR.
--- NOTE | 2021-02-13 07:20 | NUR ---
PT ON BED STILL ORALLY INTUBATED VENT SETTING PER MD FIO2 100% SPO2 88-91% NO DISTRESS NOTED STILL LATEST TEMP 98.9 STILL ON VERSED @ 7 MCG/HR FENTANYL @ 250 MCG/HR LEVOPHED @ 0.05 MCG/KG/MIN AND INFUSING VIA GINGER PICC,ALL DUE MEDS GIVEN,LATEST TEMP 99.4F COOLING BLANKET STILL ON PLACE. NO SIGNIFICANT CHANGES ON CONDITION NOTED SINCE THE BEGINNING OF THE SHIFT BED ON LOWEST POSITION AND LOCKED SIDE RAILS UP X2 WILL ENDORSED TO AM SHIFT NURSE
[2021-02-13] MEDS: VANCOMYCIN 1.25 GM in IV D5W 250 ML IV SCH ×2 (08:14→19:36)
[2021-02-13] MEDS: FENTANYL CITRATE/PF 2,500 MCG in IV NS 0.9% 200 ML IV PRN ×2 (08:17→18:12)
[2021-02-13] MEDS: DEXAMETHASONE SOD PHOSPHATE 10 MG/ML VIAL IV SCH (08:18)
[2021-02-13] MEDS: CHOLECALCIFEROL 1,000 UNIT TABLET (VIT D3) PO SCH (08:18)
[2021-02-13] MEDS: THIAMINE HCL 100 MG TABLET PO SCH (08:18)
[2021-02-13] MEDS: ASCORBIC ACID 500 MG TABLET PO SCH (08:18)
[2021-02-13] MEDS: FLUCONAZOLE (100 MG) 100 MG TABLET PO SCH (08:18)
[2021-02-13] MEDS: ZINC SULFATE 220 MG CAPSULE PO SCH (08:34)
[2021-02-13 09:15] LABS: ABG BASE EXCESS 11.1 mmol/L; ABG OXYGEN SATURATION 83.9 % (92.0-98.5); ABG PCO2 64.9 mmHg (35.0-45.0); ABG PH 7.391 (7.350-7.450); ABG PO2 46.5 mmHg (75.0-100.0); COHb 1.4 % (0.5-1.5); MetHb 0.2 % (0.0-1.5); O2Hb 82.6 % (94.0-97.0); PEEP,BG 12 cm H2O; SITE, ABG Right Radial; VT, ABG 500 mL
[2021-02-13] MEDS: ENOXAPARIN SODIUM 40 MG/0.4 ML DISP.SYRIN SQ SCH (09:56)
[2021-02-13] MEDS ORDERED: HOME MED MISCELLANEOUS NG PRN (10:30)
[2021-02-13 11:42] LABS: BASOPHILS # (AUTO) 0.1 K/uL (0.0-0.2); BASOPHILS % (AUTO) 0.6 % (0.0-2.0); EOSINOPHILS % (AUTO) 1.1 % (0.0-6.0); HEMATOCRIT 37 % (39-51); HEMOGLOBIN 11.6 g/dL (13.5-17.5); LYMPHOCYTES # (AUTO) 0.7 K/uL (0.8-4.8); LYMPHOCYTES % (AUTO) 4.8 % (20.0-44.0); MEAN CORPUSCULAR HGB CONC 32 g/dl (31.0-36.0); MEAN CORPUSCULAR VOLUME 97 fL (80-96); MONOCYTES # (AUTO) 0.6 K/uL (0.1-1.30); MONOCYTES % (AUTO) 4.5 % (2.0-12.0); NEUTROPHILS # (AUTO) 12.3 K/uL (1.8-8.9); PLATELET COUNT (AUTO) 178 K/uL (150-450); RED BLOOD CELL COUNT(AUTO) 3.78 MIL/uL (4.5-6.0); WHITE BLOOD COUNT (AUTO) 13.8 K/uL (4.3-11.0)
--- NOTE | 2021-02-13 12:00 | NUR ---
RN NOTES ET TUBE CARE DONE, PT TOLERAING TF AT 45CC/ HR WELL , NO RESIDUAL NOTED , PT ON COOLING BLANKET , CONTINUE TO MONITOR.
[2021-02-13] MEDS: ACETAMINOPHEN 325 MG TABLET PO PRN ×2 (12:46→19:52)
--- NOTE | 2021-02-13 13:00 | NUR ---
RN NOTES PT SISTER AT THE WINDOW , VISITING THE PT. SHE GOT UNDATED REGARDING HER BROTHER STATUS .
--- NOTE | 2021-02-13 13:00 | NUR ---
RN NOTES PT SISTER REQUESTING TO TALK TO DR CASTANO NOTIFIED. DR CASTANO NOTIFIED .
--- NOTE | 2021-02-13 16:00 | NUR ---
RN NOTES DR EYAD NEVAREZ REGARDING SVT HR OF 170'S , NO NEW ORDER GIVEN, CONTINUE TO MONITOR.
[2021-02-13] MEDS ORDERED: VECURONIUM 10 MG VIAL IV ONE (17:00)
--- NOTE | 2021-02-13 18:00 | NUR ---
RN NOTES ORDER RECEIVED FROM DR CASTANO FOR NMBA , LOADING DOES GIVEN , CONTINUE TO MONITOR.
[2021-02-13] MEDS: VECURONIUM 50 MG in IV NS 0.9% 50 ML IV PRN (18:39)
--- NOTE | 2021-02-13 19:00 | NUR ---
COTTON BALL BAGGER. RECEIVED THE PT REST ON THE BED. ORALLY INTUBATED. ETT 7.5,LIP 25,AC 30, FIO2 100,PEEP 15. SAT 93%. NO ACUTE DISTRESS NOTED/ CABLE DRILLER SHOWING S TACH. TEMPERATURE `103.6. TYLENOL GIVEN PER ORDERED. FC PATENT. CONCENTRATED URINE DRAINING. OGT INTACT. COLBY FARM FEEDING 45 ML/H. LT UPPER ARM PICC LINE VERSED 7MG/H,FENTANYL 250 MCG/KG/MIN,LEVOPHED 0.02 MCG/KG/MIN, VECURONIUM 0.8MG/H.HOB ELEVATED. COOLING BLANKET ON. WILL CONTINUE TO MONITOR VITALS.
--- NOTE | 2021-02-13 19:00 | NUR ---
RN NOTES PT REMAINS INTUBATED AND SEDATED ON VERSED, FENTANYL AND NMBA , NORCURON AT .8 MCG/KG/MIN , ON COOLING BLANKET, ON LEVO DRIP FOR BP SUPPORT, TF AT 45 CC/HR RUNNING, SR UP x3, BED LOCKED AND IN LOWEST POSITION,, WILL ENDORSE TO MARINE RIGGER NURSE FOR CONTINITUY OF CARE .
--- NOTE | 2021-02-13 19:58 | NUR ---
RT pt received on mechanical vent with current vent settings. orally intubated. vent plugged in to red outlet. ambu bag at bedside. no sob, no resp distress. fever present. abg in 1 hr.
--- NOTE | 2021-02-13 21:00 | NUR ---
supervisor agricultural education. ABG DONE. RESULT NOTIFIED APRIL CASTANO. VENT SETTINGS CHANGED. AC 34, TV 550,ABG AFTER 1 HOUR.
[2021-02-13 21:11] LABS: ABG BASE EXCESS 5.8 mmol/L; ABG OXYGEN SATURATION 91.3 % (92.0-98.5); ABG PCO2 80.4 mmHg (35.0-45.0); ABG PH 7.264 (7.350-7.450); ABG PO2 67.8 mmHg (75.0-100.0); AaDO2 564.8 mmHg; COHb 1.4 % (0.5-1.5); MetHb 0.5 % (0.0-1.5); O2Hb 89.6 % (94.0-97.0); SITE, ABG Right Radial; VENT MODE, BG AC 30 500 100% +15
--- NOTE | 2021-02-13 21:48 | NUR ---
RT new vent settings post abg results per chin padilla. rate 34, vt 550. abg in 1 hr. rn aware.
--- NOTE | 2021-02-13 22:22 | NUR ---
AIRLINE PILOT FLIGHT INSTRUCTOR. PT SISTER VISITED, UP DATE GIVEN.
--- NOTE | 2021-02-13 22:23 | NUR ---
FIELD LOGISTICS COORDINATOR. PT HAD FEVER TYLENOL GIVEN PER ORDERED.
[2021-02-13 22:43] LABS: ABG BASE EXCESS 5.4 mmol/L; ABG OXYGEN SATURATION 87.7 % (92.0-98.5); ABG PCO2 65.4 mmHg (35.0-45.0); ABG PH 7.327 (7.350-7.450); ABG PO2 54.6 mmHg (75.0-100.0); COHb 1.1 % (0.5-1.5); MetHb 0.2 % (0.0-1.5); O2Hb 86.6 % (94.0-97.0); SITE, ABG Right Radial; VENT MODE, BG AC 34 550 100% +15
--- NOTE | 2021-02-13 22:56 | NUR ---
RT abg done. results sent to chin padilla
[2021-02-13] MEDS ORDERED: SODIUM POLYSTYRENE SULFONATE 15 G/60 ML BOTTLE PO ONE (23:00)
[2021-02-13] MEDS ORDERED: PHENYLEPHRINE 100 MG in IV NS 0.9% 240 ML IV PRN (23:30)
[2021-02-14] VITALS (88 sets, daily range): BP systolic 80–127; BP diastolic 28–84
[2021-02-14] MEDS ORDERED: NOREPINEPHRINE 8MG/250ML RTU 250 ML IV ONE ×2 (00:32→03:38)
[2021-02-14] MEDS: NOREPINEPHRINE 8 MG in IV NS 0.9% 242 ML IV PRN ×3 (01:05→06:24)
[2021-02-14] MEDS: ACETAMINOPHEN 650 MG/20.3 ML UDC NG PRN ×2 (01:56→07:44)
[2021-02-14] MEDS: VECURONIUM 50 MG in IV NS 0.9% 50 ML IV PRN ×4 (02:29→18:24)
[2021-02-14] MEDS: MIDAZOLAM HCL 100 MG in IV NS 0.9% 80 ML IV PRN ×2 (02:50→15:33)
[2021-02-14] MEDS: FENTANYL CITRATE/PF 2,500 MCG in IV NS 0.9% 200 ML IV PRN ×3 (02:51→21:04)
--- NOTE | 2021-02-14 03:00 | NUR ---
SUGARCANE PLANTER. PT BROTHER CALLED UP DATE GIVEN.
[2021-02-14 04:37] LABS: BASOPHILS % (AUTO) 0.3 % (0.0-2.0); EOSINOPHILS % (AUTO) 0.4 % (0.0-6.0); HEMATOCRIT 38 % (39-51); HEMOGLOBIN 12.4 g/dL (13.5-17.5); LYMPHOCYTES # (AUTO) 0.8 K/uL (0.8-4.8); LYMPHOCYTES % (AUTO) 5.4 % (20.0-44.0); MEAN CORPUSCULAR HGB CONC 32 g/dl (31.0-36.0); MEAN CORPUSCULAR VOLUME 96 fL (80-96); MONOCYTES # (AUTO) 0.9 K/uL (0.1-1.30); NEUTROPHILS # (AUTO) 12.7 K/uL (1.8-8.9); NEUTROPHILS % (AUTO) 87.9 % (43.0-81.0); PLATELET COUNT (AUTO) 193 K/uL (150-450); RED BLOOD CELL COUNT(AUTO) 4.01 MIL/uL (4.5-6.0); WHITE BLOOD COUNT (AUTO) 14.5 K/uL (4.3-11.0)
[2021-02-14 05:00] LABS: CALCIUM, SERUM 7.7 mg/dL (8.5-10.1); CREATININE 1.3 mg/dL (0.6-1.3); MAGNESIUM 2.9 mg/dL (1.8-2.4); PHOSPHORUS 4.7 mg/dL (2.5-4.9); POTASSIUM 5.8 mmol/L (3.5-5.1)
[2021-02-14] MEDS: MEROPENEM 1 G in IV NS 0.9% 100 ML IV SCH ×3 (05:08→21:03)
[2021-02-14] MEDS ORDERED: NOREPINEPHRINE 4 MG/4 ML AMPUL IV ONE (05:27)
[2021-02-14] MEDS: BLOOD SUGAR DIAGNOSTIC 1 EACH STRIP IN SCH ×4 (05:36→23:53)
[2021-02-14] MEDS: INSULIN REGULAR, HUMAN 100 UNIT/ML 3 ML VIAL SQ PRN ×4 (05:48→23:56)
--- NOTE | 2021-02-14 06:00 | NUR ---
MAINTENANCE MECHANIC HELPER. PT HAD CONTINUES FEVER, TYLENOL AND COOLING MEASURE GIVEN. NOTIFIED REUBEN CLERK GENERAL OFFICE TOP CLOSER. TRAIN OF FOURS 3/4 TWITCHES . NOTIFIED REUBEN , NO ORDER RECEIVED,
--- NOTE | 2021-02-14 06:41 | NUR ---
PT SISTER DIVINA CALLED UP DATE GIVEN.
[2021-02-14 06:47] LABS: BAND % (MANUAL) 2 % (0.0-5.0); EOSINOPHILS % (MANUAL) 2 % (0-4); LYMPHOCYTES % (MANUAL) 4 % (16-48); METAMYELOCYTES % 2 % (0-0); MONOCYTES % (MANUAL) 3 % (0-11.0); NEUTROPHILS % (MANUAL) 86 (42-76); REACTIVE LYMPHOCYTES 1 % (0-0)
--- NOTE | 2021-02-14 07:00 | NUR ---
CLIENT RELATIONS REPRESENTATIVE. AM CARE GIVEN. TEMPERATURE 103.5. COOLING BLANKET ON. HOB ELEVATED. NGT FEEDING COLBY FARM 45 ML/H, FC PATENT. URINE DRAINING. IV LT UPPER ARM PICC LINE VERSED 9 MG/H, LEVOPHED 0.6 MCG/KG/MIN, FENTANYL 275 MCG/KG/MIN, VECURONIUM 1.5MCG/H. WILL CONTINUE TO MONITOR VITALS.
--- NOTE | 2021-02-14 07:40 | NUR ---
ICU/RN PT IS INTUBATED ON THE VENT AC-34 MODE,FIO2-100%.PEEP15. SAT O2-95-96%.SEDATED WITH VERSED AND FENTANYL. MAX DOSE.PARALYSED WITH VECURONIUM.ON LEVOPHED DRIP.T-104.1.OG TUBE INFUSING COLBY FARMS AT 45 ML/HR.RIGHT UPPER ARM PICC LINE.ARM SWOLLEN ,NO DVT.F/C IN PLACE DRAINING WITH MARIA M URINE.GENERALIZED EDEMA PRESENT.COOLING BLANKET IS ON.LABS REVIEW K-5.8. NOTIFIED.SUCTION PROVIDED.REPOSITION FOR COMFORT.
[2021-02-14] MEDS: THIAMINE HCL 100 MG TABLET PO SCH (08:32)
[2021-02-14] MEDS: ZINC SULFATE 220 MG CAPSULE PO SCH (08:32)
[2021-02-14] MEDS: ASCORBIC ACID 500 MG TABLET PO SCH (08:32)
[2021-02-14] MEDS: FLUCONAZOLE (100 MG) 100 MG TABLET PO SCH (08:33)
[2021-02-14] MEDS: DEXAMETHASONE SOD PHOSPHATE 10 MG/ML VIAL IV SCH (08:33)
[2021-02-14] MEDS: CHOLECALCIFEROL 1,000 UNIT TABLET (VIT D3) PO SCH (08:33)
[2021-02-14 08:35] LABS: ABG BASE EXCESS 6.7 mmol/L; ABG OXYGEN SATURATION 92.2 % (92.0-98.5); ABG PCO2 72.3 mmHg (35.0-45.0); ABG PH 7.309 (7.350-7.450); ABG PO2 68.1 mmHg (75.0-100.0); AaDO2 572.6 mmHg; COHb 1.2 % (0.5-1.5); MetHb 0.2 % (0.0-1.5); O2Hb 90.9 % (94.0-97.0); PEEP,BG 15 cm H2O; SITE, ABG Right Radial; VT, ABG 550 mL
[2021-02-14] MEDS: ENOXAPARIN SODIUM 40 MG/0.4 ML DISP.SYRIN SQ SCH (08:35)
[2021-02-14] MEDS: VANCOMYCIN 1.25 GM in IV D5W 250 ML IV SCH (08:48)
[2021-02-14] MEDS: NOREPINEPHRINE 32 MG in IV NS 0.9% 218 ML IV PRN ×2 (08:49→17:36)
--- NOTE | 2021-02-14 09:59 | NUR ---
ICU/RN T-104.1 TYLENOL VIA OG TUBE GIVEN. DUE MEDS ARE GIVEN ORDERED.
[2021-02-14] MEDS ORDERED: MAGNESIUM CITRATE 296 ML BOTTLE NG ONE (12:00)
[2021-02-14] MEDS ORDERED: SODIUM POLYSTYRENE SULFONATE 15 G/60 ML BOTTLE PO ONE (12:30)
[2021-02-14] MEDS ORDERED: INSULIN REGULAR, HUMAN 100 UNIT/ML 10 ML VIAL IV ONE (12:30)
[2021-02-14] MEDS ORDERED: DEXTROSE 50%-WATER 50 ML DISP.SYRIN IVP ONE (12:30)
[2021-02-14] MEDS: LACTULOSE 10 G/15 ML UDC (PYXIS) GT SCH ×3 (13:22→23:39)
[2021-02-14] MEDS: ACETAMINOPHEN 325 MG TABLET PO PRN ×2 (14:13→20:01)
[2021-02-14] MEDS ORDERED: ACETAMINOPHEN 650 MG/20.3 ML UDC NG ONE (17:30)
[2021-02-14] MEDS ORDERED: diphenhydrAMINE HCL 50 MG/ML VIAL IV ONE (17:30)
[2021-02-14] MEDS ORDERED: TOCILIZUMAB 800 MG in IV NS 0.9% 80 ML IV ONE (18:00)
[2021-02-14] MEDS ORDERED: HOME MED MISCELLANEOUS NG PRN (18:34)
--- NOTE | 2021-02-14 19:00 | NUR ---
ICU/RN NOTES PT REMAINS INTUBATED AND SEDATED. GAVE PT ACTEMRA 800MG ONE TIME ORDER PER MD. PT ON VERSED, FENTANYL AND NMBA , NORCURON AT .8 MCG/KG/MIN , ON COOLING BLANKET, ON LEVO DRIP FOR BP SUPPORT, TF AT 45 CC/HR RUNNING. NEW TF ORDERED, ENSURE HARVEST TO START IN THE AM. SR UP x3, BED IS LOCKED AND IN LOWEST POSITION, WILL ENDORSE TO FOOT GATHERER NURSE FOR CONTINITUY OF CARE .
--- NOTE | 2021-02-14 19:30 | NUR ---
ICU NOTES Received report and patient sedated/intubated.Temp 105.1 on cooling blanket continuous.No acute distress noted.
--- NOTE | 2021-02-14 20:00 | NUR ---
ICU NOTES Received patient sedated and intubated on full vent support.Dx: Acute Hypoxemic Respiratory Failure due to COVID.SR/ST per monitor.With multiple gtts on NMBA Norcuron at 1.5 mcg/kg/min, Fentanyl at 300 mcg/hr,Versed at 9 mg/hr, Levophed at 0.6 mcg/kg/min for BP support and will titrate accordingly.All infusing via GINGER PICC LINE.Site intact.OGT feeding infusing with minimal residual.Placement verified.Aspiration precaution maintain with HOB elevated.FC to gravity drainage.Patient febrile 104.9 bed bath rendered and continue on cooling blanket.Tylenol administered as ordered.Turned and repositioned.Continue close monitoring.
[2021-02-14] MEDS: VANCOMYCIN 1 GM in IV D5W 250 ML IV SCH (20:01)
[2021-02-14] MEDS ORDERED: IBUPROFEN SUSP 100 MG/5 ML UDC PO PRN (21:30)
--- NOTE | 2021-02-14 21:30 | NUR ---
ICU NOTES Patient sister Claudette here and seen patient.Updated of patient status and care given.Verbalized understanding.
--- NOTE | 2021-02-14 22:00 | NUR ---
ICU NOTES Patient desat to 87%-88%.Suction small amount of white secretions.No acute distress noted. RTHay notified anf said will continue to monitor.
[2021-02-15] VITALS (95 sets, daily range): BP systolic 81–141; BP diastolic 43–98
[2021-02-15] MEDS ORDERED: IV NS 0.9% 250 ML IV PRN
[2021-02-15] MEDS: VECURONIUM 50 MG in IV NS 0.9% 50 ML IV PRN ×4 (01:02→18:25)
[2021-02-15] MEDS: MIDAZOLAM HCL 100 MG in IV NS 0.9% 80 ML IV PRN ×2 (02:13→13:18)
[2021-02-15] MEDS: NOREPINEPHRINE 32 MG in IV NS 0.9% 218 ML IV PRN ×3 (02:14→23:01)
[2021-02-15] MEDS: ACETAMINOPHEN 325 MG TABLET PO PRN (02:19)
--- NOTE | 2021-02-15 02:20 | NUR ---
ICU NOTES Patient remains febrile despite continuous cooling measures.Tylenol administered.
--- NOTE | 2021-02-15 04:00 | NUR ---
ICU NOTES Patient still febrile temp 102.3.Bed bath rendered and complete linens changed.Turned and repositioned.Remains sedated no acute distress noted.
[2021-02-15] MEDS: MEROPENEM 1 G in IV NS 0.9% 100 ML IV SCH ×3 (04:45→21:23)
[2021-02-15] MEDS: FENTANYL CITRATE/PF 2,500 MCG in IV NS 0.9% 200 ML IV PRN ×3 (05:01→21:58)
[2021-02-15] MEDS: LACTULOSE 10 G/15 ML UDC (PYXIS) GT SCH ×4 (06:00→23:39)
[2021-02-15] MEDS: BLOOD SUGAR DIAGNOSTIC 1 EACH STRIP IN SCH ×9 (06:06→23:10)
[2021-02-15] MEDS: INSULIN REGULAR, HUMAN 100 UNIT/ML 3 ML VIAL SQ PRN ×3 (06:08→16:58)
--- NOTE | 2021-02-15 06:20 | NUR ---
ICU NOTES Patient sedated/intubated saturation remains low 80's from 83%-84%.SR/ST low 100's. T-max 105.1 latest temp 100.4 cooling measures continued.Lactulose given as ordered. No BM noted during the shift.Blood sugar check q 6 hrs BS 300+ coverage given per sliding scale.Turned and repositioned Q 2 hrs.All due medications administered.All iv's infusing well.Tolerating feeding well.No vomiting noted.No acute distress noted.Will endorse to day shift for ARACELIS.
--- NOTE | 2021-02-15 07:20 | NUR ---
ICU/RN OPENING NOTES RECEIVED REPORT FROM PM NURSE.PT REMAINS INTUBATED AND SEDATED. ETT 7.5/25@LIP LEVEL. PT ON VERSED, FENTANYL AND NMBA , NORCURON AT .8 MCG/KG/MIN , ON COOLING BLANKET, ON LEVO DRIP FOR BP SUPPORT, TF AT 45 CC/HR RUNNING. NEW TF ORDERED, ENSURE HARVEST TO START IN THE AM. SR UP x3, BED IS LOCKED AND IN LOWEST POSITION, WILL ENDORSE TO REFRIGERATOR TESTER NURSE FOR CONTINITUY OF CARE . Addendum: 02/15/21 at 0932 by DAVID FIELD RN WRONG ENTRY.PLEASE SEE THIS CHARTING. RECEIVED REPORT FROM PM NURSE.PT REMAINS INTUBATED AND SEDATED. ETT 7.5/25@LIP LEVEL. WITH MAX VENT SUPPORT SATURATING 84% WITH 100% O2.PT ON VERSED, FENTANYL AND NMBA , NORCURON AT 1.5MCG/KG/MIN , ON COOLING BLANKET, TEMP 100.4F.ON LEVO DRIP FOR BP SUPPORT, TF AT 45 CC/HR RUNNING. PICC LINE ON GINGER DRESSING IS INTACT AND PATENT.CARTER CATH DRAINING TEA COLORED URINE VIA GRAVITY..ACROCYANOSIS NOTED ON BLE.PATIENT ON LEVO. SR UP x3, BED IS LOCKED AND IN LOWEST POSITION, CALL LIGHT IN REACH.BED ALARM IS ON.WILL CONTINUE TO MONITOR.
[2021-02-15] MEDS ORDERED: IBUPROFEN 600 MG TABLET GT PRN (07:30)
[2021-02-15] MEDS: VANCOMYCIN 1 GM in IV D5W 250 ML IV SCH ×2 (07:38→20:00)
[2021-02-15] MEDS: FLUCONAZOLE (100 MG) 100 MG TABLET PO SCH (08:21)
[2021-02-15] MEDS: CHOLECALCIFEROL 1,000 UNIT TABLET (VIT D3) PO SCH (08:21)
[2021-02-15] MEDS: ZINC SULFATE 220 MG CAPSULE PO SCH (08:21)
[2021-02-15] MEDS: DEXAMETHASONE SOD PHOSPHATE 10 MG/ML VIAL IV SCH (08:21)
[2021-02-15] MEDS: ASCORBIC ACID 500 MG TABLET PO SCH (08:21)
[2021-02-15] MEDS: THIAMINE HCL 100 MG TABLET PO SCH (08:21)
[2021-02-15] MEDS: ENOXAPARIN SODIUM 40 MG/0.4 ML DISP.SYRIN SQ SCH (08:28)
--- NOTE | 2021-02-15 08:30 | NUR ---
LEASING AGENT NOTE PATIENT HAS RESIDUAL OF 230ML. MADE AWARE.PLACE FEEDING ON HOLD.
--- NOTE | 2021-02-15 09:32 | NUR ---
SPECIFICATION WRITER NOTE SEEN BY ,UPDATED ABOUT PATIENT CONDITION.WILL DO ABG 1 HR LATER.RT AWARE,SPOKE TO UPDATED ABOUT VENT CHANGES I/O RATIO 1:1.
[2021-02-15 09:44] LABS: BASOPHILS # (AUTO) 0.1 K/uL (0.0-0.2); BASOPHILS % (AUTO) 0.6 % (0.0-2.0); EOSINOPHILS % (AUTO) 0.2 % (0.0-6.0); HEMATOCRIT 38 % (39-51); HEMOGLOBIN 12.3 g/dL (13.5-17.5); LYMPHOCYTES % (AUTO) 13.7 % (20.0-44.0); MEAN CORPUSCULAR HGB CONC 33 g/dl (31.0-36.0); MEAN CORPUSCULAR VOLUME 96 fL (80-96); MONOCYTES # (AUTO) 1.1 K/uL (0.1-1.30); MONOCYTES % (AUTO) 7.7 % (2.0-12.0); NEUTROPHILS # (AUTO) 11.1 K/uL (1.8-8.9); NEUTROPHILS % (AUTO) 77.8 % (43.0-81.0); PLATELET COUNT (AUTO) 190 K/uL (150-450); RED BLOOD CELL COUNT(AUTO) 3.92 MIL/uL (4.5-6.0); WHITE BLOOD COUNT (AUTO) 14.3 K/uL (4.3-11.0)
[2021-02-15] MEDS: ACETAMINOPHEN 650 MG/20.3 ML UDC NG PRN ×3 (09:50→21:58)
[2021-02-15 09:55] LABS: CALCIUM, SERUM 7.4 mg/dL (8.5-10.1); CREATININE 1.6 mg/dL (0.6-1.3); MAGNESIUM 3.2 mg/dL (1.8-2.4)
[2021-02-15 09:58] LABS: POTASSIUM 6.5 mmol/L (3.5-5.1)
[2021-02-15 10:44] LABS: ABG BASE EXCESS 5.9 mmol/L; ABG OXYGEN SATURATION 85.6 % (92.0-98.5); ABG PCO2 73.3 mmHg (35.0-45.0); ABG PH 7.295 (7.350-7.450); ABG PO2 53.2 mmHg (75.0-100.0); AaDO2 586.5 mmHg; COHb 1.3 % (0.5-1.5); MetHb 0.2 % (0.0-1.5); O2Hb 84.3 % (94.0-97.0); SITE, ABG Right Radial; VENT MODE, BG AC 34 550 100% +5
[2021-02-15] MEDS ORDERED: DEXTROSE 50%-WATER 50 ML DISP.SYRIN IVP ONE (11:00)
[2021-02-15] MEDS ORDERED: DEXTROSE 50%-WATER 50 ML DISP.SYRIN IV PRN (11:00)
[2021-02-15] MEDS ORDERED: ALBUTEROL FS 2.5 MG/3 ML VIAL.NEB CONTNEB ONE (11:00)
[2021-02-15] MEDS ORDERED: INSULIN REGULAR, HUMAN 100 UNIT/ML 10 ML VIAL IV ONE (11:00)
[2021-02-15] MEDS ORDERED: SODIUM BICARBONATE SYR 50 MEQ/50 ML DISP.SYRIN IV ONE (11:00)
--- NOTE | 2021-02-15 11:10 | NUR ---
DR.TIM CASTANO MADE AWARE ABOUT PATIENT LAB RESULTS,K 6.5 AND BS 371 WITH ABG RESULT.PATIENT CONDITION IS CRITICAL,RECEIVED NEW ORDERS.NNO FROM FOR ABG.CONTINUE SAME VENT SUPPORT.FAMILY WILL BE UPDATED BY LATER.O2 SAT IS 84-85 NOW.WILL CONTINUE TO MONITOR.
--- NOTE | 2021-02-15 12:15 | NUR ---
SEEN BY UPDATED ABOUT PATIENT CONDITION ,FAMILY UPDATED ABOUT PATIENT CONDITION BY AND ME.SPOKE TO SISTER DIVINA.
--- NOTE | 2021-02-15 14:00 | NUR ---
MADE AWARE ABOUT BS 451.INSULIN GIVEN.TUBE FEEDING ON HOLD.
[2021-02-15 15:17] LABS: BILIRUBIN,URINE NEGATIVE (NEGATIVE); COLOR,URINE YELLOW (YELLOW); LEUKOCYTE ESTERASE ,URINE NEGATIVE (NEGATIVE); NITRITE, URINE NEGATIVE (NEGATIVE); PROTEIN,URINE 30 mg/dl (NEGATIVE); UGLUCOSE >=1000 mg/dL (NEGATIVE)
[2021-02-15 15:56] LABS: BACTERIA,URINE Few /HPF (None Seen); RBC,URINE 21-50 /HPF (0-2); SQUAMOUS EPITHELIAL CELL,UR Few /HPF (None Seen); WBC,URINE 0-2 /HPF (0-3)
[2021-02-15 15:57] LABS: COARSE GRANULAR CASTS,URINE Few /LPF (None Seen)
[2021-02-15] MEDS ORDERED: INSULIN REGULAR, HUMAN 100 UNIT in IV NS 0.9% 99 ML IV PRN (17:30)
--- NOTE | 2021-02-15 17:56 | NUR ---
MADE AWARE ABOUT INSULIN DRIP.RECEIVED NEW ORDERS.
--- NOTE | 2021-02-15 19:05 | NUR ---
RECEIVED PT ON BED ORALLY INTUBATED AND SEDATED VENT SETTING PER MD, FIO2 100% SPO2 90% NO SIGN OF DISTRESS, BEDSIDE MONITOR READS SINUS tachy 110'S, GINGER PICC WITH ONGOING FENTANYL @ 300MCG/HR, VERSED @ 9 MCG/HR LEVOPHED @0.4 MCG/KG/MIN, NORCURON @1.5 MCG/KG/MIN, AND INSULIN DRIP @ 7 UNIT/HR TO TITRATE PER PROTOCOL ;INFUSING WELL, HAVE OGTUBE ON PLACE AND CLAMP , CARTER CATHETER DRAINING YELLOW URINE VIA GRAVITY BED, COOLING BLANKET AT PLACE DUE TO TEMP 101F ON LOWEST POSITION AND LOCKED SIDE RAILS UP X2 WILL CONT TO MONITOR
--- NOTE | 2021-02-15 19:22 | NUR ---
LITIGATION LEGAL ASSISTANT CLOSING NOTE .PT REMAINS INTUBATED AND SEDATED. ETT 7.5/25@LIP LEVEL. WITH MAX VENT SUPPORT SATURATING 84% WITH 100% O2.PT ON VERSED, FENTANYL AND NMBA , NORCURON AT 1.5MCG/KG/MIN , ON COOLING BLANKET, TEMP 100.6F.ON LEVO DRIP FOR BP SUPPORT, TF ON HOLD.ON INSULIN DRIP . PICC LINE ON GINGER DRESSING IS INTACT AND PATENT.CARTER CATH DRAINING TEA COLORED URINE VIA GRAVITY.SR UP x3, BED IS LOCKED AND IN LOWEST POSITION, CALL LIGHT IN REACH.BED ALARM IS ON.ONCOMING NURSE MADE AWARE ABOUT FAMILY REQUEST TO MEET IN PERSON TOMORROW TO ENDORSE TO AM NURSE.ENDORSED TO PM NURSE FOR ARACELIS.
--- NOTE | 2021-02-15 19:40 | NUR ---
RT Notes Pt received orally intubated w/ 7.5 ETT secured at 25cm at the lip line on [facility] vent on settings AC mode, rate 34, VT 530, FIO2 100%, PEEP +15. Pt in critical condition. Airway patent and secured. PREMISES TECHNICIAN done. PT suctioned. Alarms set and audible. [place]ag at bedside. Vent plugged into red outlet. Will cont to monitor. Addendum: 02/15/21 at 2011 by MIGUEL CASTILLO RT Amended: Links added.
--- NOTE | 2021-02-15 20:55 | NUR ---
VANCOMYCIN NON ADMINISTERED DUE TO VANCO TROUGH OF 21 CHARGE NURSE MADE AWARE
[2021-02-16] VITALS (95 sets, daily range): BP systolic 48–154; BP diastolic 34–102
[2021-02-16] MEDS: BLOOD SUGAR DIAGNOSTIC 1 EACH STRIP IN SCH ×19 (00:01→23:26)
[2021-02-16] MEDS: MIDAZOLAM HCL 100 MG in IV NS 0.9% 80 ML IV PRN ×3 (01:01→22:24)
[2021-02-16] MEDS: VECURONIUM 50 MG in IV NS 0.9% 50 ML IV PRN ×4 (01:01→22:24)
[2021-02-16] MEDS: MEROPENEM 1 G in IV NS 0.9% 100 ML IV SCH ×3 (04:34→20:30)
--- NOTE | 2021-02-16 05:00 | NUR ---
REPORTED TO REUBEN BEAVERS STOCK DRIVER AIRPORT PLANNER THAT PT BG IS 149 AND PT IS NOT ON ANY IVF AND THE FEEDING IS HOLD NO NEW ORDER WAS MADE, WILL CONT TO MONITOR THE PT
[2021-02-16] MEDS: IV NS 0.9% 250 ML IV PRN (05:01)
[2021-02-16] MEDS: LACTULOSE 10 G/15 ML UDC (PYXIS) GT SCH ×3 (05:55→18:47)
[2021-02-16 06:04] LABS: BASOPHILS # (AUTO) 0.1 K/uL (0.0-0.2); BASOPHILS % (AUTO) 0.6 % (0.0-2.0); HEMATOCRIT 39 % (39-51); HEMOGLOBIN 12.3 g/dL (13.5-17.5); LYMPHOCYTES # (AUTO) 1.7 K/uL (0.8-4.8); LYMPHOCYTES % (AUTO) 8.3 % (20.0-44.0); MEAN CORPUSCULAR HGB CONC 31 g/dl (31.0-36.0); MEAN CORPUSCULAR VOLUME 97 fL (80-96); MONOCYTES # (AUTO) 1.1 K/uL (0.1-1.30); MONOCYTES % (AUTO) 5.3 % (2.0-12.0); NEUTROPHILS # (AUTO) 18.2 K/uL (1.8-8.9); NEUTROPHILS % (AUTO) 85.8 % (43.0-81.0); PLATELET COUNT (AUTO) 198 K/uL (150-450); RED BLOOD CELL COUNT(AUTO) 4.05 MIL/uL (4.5-6.0); WHITE BLOOD COUNT (AUTO) 21.2 K/uL (4.3-11.0)
[2021-02-16 06:06] LABS: CREATININE 1.7 mg/dL (0.6-1.3); MAGNESIUM 3.7 mg/dL (1.8-2.4); PHOSPHORUS 4.5 mg/dL (2.5-4.9)
[2021-02-16 06:23] LABS: POTASSIUM 6.5 mmol/L (3.5-5.1)
--- NOTE | 2021-02-16 06:52 | NUR ---
REPORTED TO SHANA BEAVERS EMPLOYMENT AGENCY MANAGER THAT K+6.5 AND SHE SAID SHE WILL PUT ORDER WILL CONT TO MONITOR THE PT
[2021-02-16] MEDS: FENTANYL CITRATE/PF 2,500 MCG in IV NS 0.9% 200 ML IV PRN ×3 (06:58→22:23)
[2021-02-16] MEDS ORDERED: INSULIN REGULAR, HUMAN 100 UNIT/ML 3 ML VIAL SQ PRN (07:30)
[2021-02-16] MEDS ORDERED: DEXTROSE 50%-WATER 50 ML DISP.SYRIN IV PRN (07:30)
--- NOTE | 2021-02-16 07:33 | NUR ---
PT ON BED STILL ORALLY INTUBATED VENT SETTING PER MD FIO2 100% SPO2 88-93% NO DISTRESS NOTED STILL LATEST TEMP 97.8F STILL ON VERSED @ 9 MCG/HR FENTANYL @ 300 MCG/HR LEVOPHED @ 0.5 MCG/KG/MIN AND NORCURON 1.5 MCG/KG/MIN INFUSING VIA OPAL PICC,ALL DUE MEDS GIVEN, NO SIGNIFICANT CHANGES ON CONDITION NOTED SINCE THE BEGINNING OF THE SHIFT BED ON LOWEST POSITION AND LOCKED SIDE RAILS UP X2 WILL ENDORSED TO AM SHIFT NURSE
[2021-02-16] MEDS ORDERED: Calcium Gluconate 1GM/10ML 4.65 MEQ in IV D5W 50 ML IV ONE (08:00)
--- NOTE | 2021-02-16 08:00 | NUR ---
RN NOTES RECEIVED PATIENT ON BED ETT/VENT SETTING PER MD FIO2 100% SPO2 93% NO DISTRESS NOTED STILL LATEST TEMP 99F AXILIARY. SEDATED ON VERSED @ 9 MCG/HR FENTANYL @ 300 MCG/HR LEVOPHED @ 0.5 MCG/KG/MIN AND NORCURON 1.5 MCG/KG/MIN INFUSING VIA OPAL PICC. LEFT UA MIDLINE INTACT. OGT CLAMPED. ASSIST TURN AND REPOSTION Q 2 HR. CARTER DRAININGWITH SEDIMENT YELLOW OUTPUT.
[2021-02-16] MEDS: FLUCONAZOLE (100 MG) 100 MG TABLET PO SCH (08:40)
[2021-02-16] MEDS: THIAMINE HCL 100 MG TABLET PO SCH (08:40)
[2021-02-16] MEDS: ASCORBIC ACID 500 MG TABLET PO SCH (08:40)
[2021-02-16] MEDS: CHOLECALCIFEROL 1,000 UNIT TABLET (VIT D3) PO SCH (08:40)
[2021-02-16] MEDS: VANCOMYCIN 0.75 GM in IV D5W 250 ML IV SCH ×2 (08:41→21:30)
[2021-02-16] MEDS: DEXAMETHASONE SOD PHOSPHATE 10 MG/ML VIAL IV SCH (08:43)
[2021-02-16] MEDS: ENOXAPARIN SODIUM 40 MG/0.4 ML DISP.SYRIN SQ SCH (08:48)
[2021-02-16] MEDS: ZINC SULFATE 220 MG CAPSULE PO SCH (08:48)
[2021-02-16 09:05] LABS: ABG BASE EXCESS 8.4 mmol/L; ABG OXYGEN SATURATION 93.9 % (92.0-98.5); ABG PCO2 85.8 mmHg (35.0-45.0); ABG PH 7.271 (7.350-7.450); ABG PO2 72.7 mmHg (75.0-100.0); AaDO2 554.5 mmHg; COHb 0.6 % (0.5-1.5); MetHb 0.3 % (0.0-1.5); O2Hb 93.1 % (94.0-97.0); SITE, ABG Right Radial
[2021-02-16] MEDS ORDERED: SODIUM POLYSTYRENE SULFONATE 15 G/60 ML BOTTLE PO ONE ×2 (10:30→18:30)
[2021-02-16] MEDS: NOREPINEPHRINE 32 MG in IV NS 0.9% 218 ML IV PRN ×2 (10:48→20:50)
[2021-02-16] MEDS ORDERED: BUMETANIDE INJ 4 MG in IV D5W 24 ML IV ONE (11:00)
[2021-02-16] MEDS ORDERED: BLOOD SUGAR DIAGNOSTIC 1 EACH STRIP IN SCH (12:00)
[2021-02-16 12:07] LABS: CALCIUM, SERUM 6.4 mg/dL (8.5-10.1); CREATININE 1.7 mg/dL (0.6-1.3)
--- NOTE | 2021-02-16 13:00 | NUR ---
RN NOTES GET ORDER INSULIN DRIP , WITH ACCU CHECK Q 1 HR.
[2021-02-16] MEDS: INSULIN REGULAR, HUMAN 100 UNIT in IV NS 0.9% 99 ML IV PRN (13:03)
--- NOTE | 2021-02-16 17:00 | NUR ---
RN NOTES GET ORDER ART LINE INSERTION VIA DR ROLLE, PROCEDURE DONE BEDSIDE VIA SANTI CASTANO DNP.
[2021-02-16] MEDS: ACETAMINOPHEN 650 MG/20.3 ML UDC NG PRN (17:36)
--- NOTE | 2021-02-16 17:36 | NUR ---
rn notes administered Tylenol 650 ml via ngt for 101.1F
--- NOTE | 2021-02-16 18:00 | NUR ---
RN NOTES SISTER NEXT TO THE BED.
--- NOTE | 2021-02-16 18:15 | NUR ---
RN NOTES PM CARE DONE, SUCTION, VSS, FLASHED H2O 200ML/HR Q4HR PRESCRIBED, DUE MEDICATION ADMINISTERED, ASSIST TURN AND REPOSTION Q2 HR, FIO2 100% SPO2 93% NO DISTRESS NOTED STILL LATEST TEMP 101.5F, ON COOLING MEASURE. SEDATED ON VERSED @ 9 MCG/HR FENTANYL @ 300 MCG/HR LEVOPHED @ 0.5 MCG/KG/MIN AND NORCURON 1.5 MCG/KG/MIN, INSULIN 3.6 U INFUSING VIA OPAL PICC, DUE MEDS GIVEN, ART LINE INTACT.NO SIGNIFICANT CHANGES ON CONDITION NOTED SINCE THE BEGINNING OF THE SHIFT. CARTER OUTPUT WAS 1850ML TOTAL. WILL ENDORSED TO ONCOMING NURSE ARACELIS.
[2021-02-16] MEDS ORDERED: NOREPINEPHRINE 4 MG/4 ML AMPUL IV ONE (20:42)
[2021-02-17] VITALS (87 sets, daily range): BP systolic 69–141; BP diastolic 30–89
[2021-02-17] MEDS: ACETAMINOPHEN 650 MG/20.3 ML UDC NG PRN ×3 (00:33→10:32)
[2021-02-17] MEDS: LACTULOSE 10 G/15 ML UDC (PYXIS) GT SCH ×4 (00:34→18:16)
[2021-02-17] MEDS: BLOOD SUGAR DIAGNOSTIC 1 EACH STRIP IN SCH ×24 (00:39→23:10)
[2021-02-17] MEDS: MEROPENEM 1 G in IV NS 0.9% 100 ML IV SCH ×3 (04:30→20:18)
[2021-02-17] MEDS: VECURONIUM 50 MG in IV NS 0.9% 50 ML IV PRN ×3 (04:30→21:43)
[2021-02-17] MEDS: IV NS 0.9% 250 ML IV PRN (04:30)
[2021-02-17 04:53] LABS: BASOPHILS # (AUTO) 0.1 K/uL (0.0-0.2); BASOPHILS % (AUTO) 0.3 % (0.0-2.0); HEMATOCRIT 36 % (39-51); HEMOGLOBIN 11.6 g/dL (13.5-17.5); LYMPHOCYTES # (AUTO) 1.1 K/uL (0.8-4.8); LYMPHOCYTES % (AUTO) 4.7 % (20.0-44.0); MEAN CORPUSCULAR HGB CONC 32 g/dl (31.0-36.0); MEAN CORPUSCULAR VOLUME 96 fL (80-96); MONOCYTES # (AUTO) 1.1 K/uL (0.1-1.30); MONOCYTES % (AUTO) 4.6 % (2.0-12.0); NEUTROPHILS % (AUTO) 90.4 % (43.0-81.0); PLATELET COUNT (AUTO) 200 K/uL (150-450); RED BLOOD CELL COUNT(AUTO) 3.77 MIL/uL (4.5-6.0); WHITE BLOOD COUNT (AUTO) 23.2 K/uL (4.3-11.0)
[2021-02-17 05:07] LABS: CALCIUM, SERUM 7.1 mg/dL (8.5-10.1); CREATININE 2.2 mg/dL (0.6-1.3); MAGNESIUM 3.2 mg/dL (1.8-2.4)
[2021-02-17 05:12] LABS: POTASSIUM 6.9 mmol/L (3.5-5.1)
--- NOTE | 2021-02-17 06:09 | NUR ---
RT NOTE PT RECEIVED ON ETT 7.5 @ 25 AND ON [facility] ON ORDERED SETTINGS. PT IS IN CRITCAL CONDITION. ETT PLACEMENT IS CORRECT, PATENT, AND SECURE. BMV @ [facility]. VENT PLUGGED INTO RED OUTLET. NO COMPLICATIONS T/O SHIFT. Addendum: 02/17/21 at 0613 by YRIS HASTINGS RT Amended: Links added.
[2021-02-17] MEDS: NOREPINEPHRINE 32 MG in IV NS 0.9% 218 ML IV PRN ×2 (07:05→21:48)
[2021-02-17] MEDS: FENTANYL CITRATE/PF 2,500 MCG in IV NS 0.9% 200 ML IV PRN ×2 (07:07→16:16)
--- NOTE | 2021-02-17 07:58 | NUR ---
RN NOTES RECEIVED PATIENT CRITICAL EET/VENT,FIO2-100%, PEEP-15. RUNNING 100.5F TEMPERATURE ,COOLING MEASURE ON. PATIENT HAS GENERALIZED EDEMA. INFUSING FENTANYL 300MCG/KG/HR, VERSED 9MG/ML/HR, NORCURON 1.5MCG/KG/HR, LEVO 0.5MCG/KG/HR, AND INSULIN DRIP ON 2U AT THIS TIME. CARTER DRAINING YELLOW OUTPUT. KEEP HOB ELEVATED. ASSIST TURN AND REPOSTION Q 2 HR. STILL KCL-ELEVATED 6.9. HOSPITALIST AWARE, WAITING FOR NEW ORDERS.
[2021-02-17] MEDS ORDERED: DEXTROSE 50%-WATER 50 ML DISP.SYRIN IVP ONE (08:30)
[2021-02-17] MEDS ORDERED: INSULIN REGULAR, HUMAN 100 UNIT/ML 10 ML VIAL IV ONE (08:30)
[2021-02-17] MEDS ORDERED: SODIUM BICARBONATE SYR 50 MEQ/50 ML DISP.SYRIN IV ONE (08:30)
[2021-02-17] MEDS: DEXAMETHASONE SOD PHOSPHATE 10 MG/ML VIAL IV SCH (08:50)
[2021-02-17] MEDS: THIAMINE HCL 100 MG TABLET PO SCH (08:51)
[2021-02-17] MEDS: FLUCONAZOLE (100 MG) 100 MG TABLET PO SCH (08:51)
[2021-02-17] MEDS: ZINC SULFATE 220 MG CAPSULE PO SCH (08:51)
[2021-02-17] MEDS: CHOLECALCIFEROL 1,000 UNIT TABLET (VIT D3) PO SCH (08:51)
[2021-02-17] MEDS: ASCORBIC ACID 500 MG TABLET PO SCH (08:51)
[2021-02-17] MEDS: ENOXAPARIN SODIUM 40 MG/0.4 ML DISP.SYRIN SQ SCH (08:52)
[2021-02-17] MEDS: VANCOMYCIN 0.75 GM in IV D5W 250 ML IV SCH ×2 (08:59→21:00)
[2021-02-17] MEDS: MIDAZOLAM HCL 100 MG in IV NS 0.9% 80 ML IV PRN ×2 (10:29→20:18)
--- NOTE | 2021-02-17 10:32 | NUR ---
rn notes T-100.2 F administered Tylenol 650 mg via ogt.
[2021-02-17] MEDS ORDERED: HEPARIN SODIUM, PORCINE 5000 UNITS/1 ML VIAL SQ SCH (14:30)
[2021-02-17] MEDS: FLUDROCORTISONE 0.1 MG TABLET NG SCH (15:25)
--- NOTE | 2021-02-17 18:30 | NUR ---
RN NOTES PM CARE DONE, DUE MEDICATION ADMINISTERED, BS-131 MG/DL INFUSING INSULIN 1.9 U/HR, FENTANYL 300MCG/KG/HR, VERSED 9MG/ML, NORCURON 1.5 MCG/KG/HR, LEVOPHED 0.3 MCG/KG/HR ON RIGHT PICC LINE INTACT. ART LINE INTACT. CARTER DRAINING VOA GRAVITY. T-99.5 F AT THIS TIME, ASSIST TURN AND REPOSTION Q 2 HR. ENDORSED ONCOMING NURSE FOLLOW PLAN OF CARE.
--- NOTE | 2021-02-17 19:50 | NUR ---
RN NOTES RECEIVED PATIENT SEDATED ORALLY INTUBATED WITH ETT 7.5 AND 25 CM AT LIP. CONNECTED TO VENT SETTING AC 34 TV 530 FIO2 100% AND PEEP 15 SATURATION 97%. TEMPERATURE 99.5 DEGREE FHARENHEIGHT. SR ON MONITOR. WITH IV SITE ON OPAL PICC LINE AND GINGER MIDLINE INTACT AND PATENT. RECEIVED PATIENT WITH ONGOING IV OF FENTANYL DRIP @ 300 MCG/HR, VERSED @ 9 MCG/HR , LEVOPHED @ 0.3 MCG/KG/MIN AND NORCURON @ 1.5 MCG/KG/MIN TOF CHECKED Q4H AND INSULIN DRIP 1.9 WITH ORDER TO TITRATE PROTOCOL /MD ORDER. PATIENT ALSO HAS A-LINE LABELED AND ZEROED. PATIENT IS SEDATED TOF 4 IN ENERGY OF 5. PATIENT HAS CARTER CATH WITH GOOD URINE OUTPUT. KEPT PT CLEAN AND COMFORTABLE IN BED. ORAL CARE PROVIDED. KEPT PT CLEAN AND DR. WILL CONTINUE POC.
[2021-02-17] MEDS: HEPARIN SODIUM, PORCINE 5000 UNITS/1 ML VIAL SQ SCH (20:17)
[2021-02-17] MEDS: INSULIN REGULAR, HUMAN 100 UNIT in IV NS 0.9% 99 ML IV PRN (21:15)
[2021-02-18] VITALS (77 sets, daily range): BP systolic 74–148; BP diastolic 43–97
[2021-02-18] MEDS: LACTULOSE 10 G/15 ML UDC (PYXIS) GT SCH ×4 (00:11→17:24)
[2021-02-18] MEDS: FENTANYL CITRATE/PF 2,500 MCG in IV NS 0.9% 200 ML IV PRN ×3 (00:12→17:14)
[2021-02-18] MEDS: BLOOD SUGAR DIAGNOSTIC 1 EACH STRIP IN SCH ×24 (00:33→23:25)
[2021-02-18] MEDS: IV NS 0.9% 250 ML IV PRN (02:59)
[2021-02-18] MEDS: VECURONIUM 50 MG in IV NS 0.9% 50 ML IV PRN ×4 (03:42→19:44)
[2021-02-18 04:21] LABS: BASOPHILS # (AUTO) 0.1 K/uL (0.0-0.2); BASOPHILS % (AUTO) 0.4 % (0.0-2.0); EOSINOPHILS % (AUTO) 0.1 % (0.0-6.0); HEMATOCRIT 34 % (39-51); HEMOGLOBIN 11.2 g/dL (13.5-17.5); LYMPHOCYTES # (AUTO) 0.9 K/uL (0.8-4.8); LYMPHOCYTES % (AUTO) 4.8 % (20.0-44.0); MEAN CORPUSCULAR HGB CONC 33 g/dl (31.0-36.0); MEAN CORPUSCULAR VOLUME 96 fL (80-96); MONOCYTES # (AUTO) 0.7 K/uL (0.1-1.30); MONOCYTES % (AUTO) 3.4 % (2.0-12.0); NEUTROPHILS # (AUTO) 18.1 K/uL (1.8-8.9); NEUTROPHILS % (AUTO) 91.3 % (43.0-81.0); PLATELET COUNT (AUTO) 160 K/uL (150-450); WHITE BLOOD COUNT (AUTO) 19.8 K/uL (4.3-11.0)
[2021-02-18 04:37] LABS: CALCIUM, SERUM 6.8 mg/dL (8.5-10.1); CREATININE 1.5 mg/dL (0.6-1.3); MAGNESIUM 2.8 mg/dL (1.8-2.4); PHOSPHORUS 4.6 mg/dL (2.5-4.9)
--- NOTE | 2021-02-18 05:10 | NUR ---
RN NOTES FIO2 TITRATED TO 80% BY RT WILL CONTINUE TO MONITOR. SATURATION AT THIS TIME 92-93%
[2021-02-18] MEDS: MEROPENEM 1 G in IV NS 0.9% 100 ML IV SCH ×3 (05:21→21:03)
[2021-02-18] MEDS: HEPARIN SODIUM, PORCINE 5000 UNITS/1 ML VIAL SQ SCH ×3 (05:22→21:04)
--- NOTE | 2021-02-18 06:20 | NUR ---
RN NOTES CALLED RT THAT SATURATION WENT DOWN TO 87-89% , FIO2 INCREASE TO 90% SATURATION WENT UP 93% TOLERATED WELL.
--- NOTE | 2021-02-18 07:15 | NUR ---
RN NOTES PATIENT TOLERATED VENT SETTING WITH FIO2 90%. SATURATION BETWEEN 92-93%. AFEBRILE. TMAX 99.5 LAST NIGHT LATEST TEMPERATURE 97.7 DEGREE FAHRENHEIT. VSS STABLE WITH PRESSOR. IV SITE ON OPAL PICC LINE AND GINGER MIDLINE INTACT ROMAN PATENT. CONTINUE WITH FENTANYL, VERSED, VECURONIUM LEVOPHED AND INSULIN TITRATED PROTOCOL ORDERED. A- LINE KEPT IN PLACED AND LEBELLED. TOF WITH 3- 4 TWITCHES PRESENT. CONTINUE EVERY 4H. KEPT PT CLEAN AND COMFORTABLE IN BED. FAMILY UPDATED REGARDING CONDITION OF PATIENT. ENDORSED CONTINUITY OF CARE TO AM NURSE.
[2021-02-18] MEDS: MIDAZOLAM HCL 100 MG in IV NS 0.9% 80 ML IV PRN ×2 (07:22→17:07)
--- NOTE | 2021-02-18 07:40 | NUR ---
ICU/RN PT IS INTUBATED ON THE VENT AC-34,FIO2-90%,PEEP-15.SEDATED WITH HIGH DOSE OF VERSED AND FENTANYL.AND ON MAXIMUM DOSE 1.5 OF NORCURON.TOF-3/4.AFEBRILE.ON LEVOPHED DRIP.HAS RIGHT FEMORAL A-LINE.RIGHT UPPER PICC LINE AND LEFT UPPER WILD MIDLINE.OG TUBE IN PLACE CLAMPED.OK TO GIVE MEDS AND WATER.F/C IN PLACE DRAINING WITH YELLOW URINE.GENERALIZED EDEMA PRESENT.PT IS ON INSULIN DRIP TO DECREASED HIS POTASSIUM LEVEL. K LEVEL WAS 6.9,TODAY IS 5.0. LABS REVIEW.MD NOTIFIED. ABG ORDERED.SUCTION PROVIDED.REPOSITION FOR COMFORT.CONTINUE MONITORING.
[2021-02-18 08:01] LABS: ABG BASE EXCESS 8.8 mmol/L; ABG PCO2 59.9 mmHg (35.0-45.0); ABG PH 7.392 (7.350-7.450); ABG PO2 60.3 mmHg (75.0-100.0); COHb 1.1 % (0.5-1.5); MetHb 0.3 % (0.0-1.5); O2Hb 89.7 % (94.0-97.0); SITE, ABG A-Line
[2021-02-18] MEDS: FLUCONAZOLE (100 MG) 100 MG TABLET PO SCH (08:26)
[2021-02-18] MEDS: THIAMINE HCL 100 MG TABLET PO SCH (08:26)
[2021-02-18] MEDS: ZINC SULFATE 220 MG CAPSULE PO SCH (08:26)
[2021-02-18] MEDS: ASCORBIC ACID 500 MG TABLET PO SCH (08:26)
[2021-02-18] MEDS: FLUDROCORTISONE 0.1 MG TABLET NG SCH (08:26)
[2021-02-18] MEDS: CHOLECALCIFEROL 1,000 UNIT TABLET (VIT D3) PO SCH (08:26)
[2021-02-18] MEDS: DEXAMETHASONE SOD PHOSPHATE 10 MG/ML VIAL IV SCH (08:27)
--- NOTE | 2021-02-18 09:00 | NUR ---
ICU/RN DUE MEDS ARE GIVEN ORDERED.
[2021-02-18] MEDS: VANCOMYCIN 0.75 GM in IV D5W 250 ML IV SCH (09:29)
--- NOTE | 2021-02-18 10:00 | NUR ---
ICU/RN UNABLE PROVIDE SEDATION VACATION .PT IS NOT STABLE.
--- NOTE | 2021-02-18 17:00 | NUR ---
ICU/RN PM CARE PROVIDED.WOUND DRESSING DONE ORDERED.PT HAS DTI ON HIS SACRAL AREA.MEPILEX APPLIED.PT HAS BM.DUE MEDS ARE GIVEN ORDERED.SUCTION PROVIDED.REPOSITION FOR COMFORT.SAT O2 -88%.PT PLACED BACK ON 100% FIO2.STILL ON LEVOPHED DRIP.INSULIN DRIP, FENTANYL AND VERSED,NORCURON ORDERED.
[2021-02-18] MEDS ORDERED: acetaZOLAMIDE SODIUM 500 MG/VIAL VIAL IV ONE (19:30)
--- NOTE | 2021-02-18 19:45 | NUR ---
RN NOTES RECEIVED PATIENT ORALLY INTUBATED WITH ETT 7.5 AND 25 CM AT LIP. CONNECTED TO VENT SETTING AC 34 TV 530 FIO2 100% AND PEEP 15 SATURATION 97%. TEMPERATURE 97.4 DEGREE FHARENHEIGHT. SR ON MONITOR. IV ON OPAL PICC LINE WITH ONGOING FENTANYL DRIP @ 300 MCG/HR, VERSED @ 9 MCG/HR , LEVOPHED @ 0.2 MCG/KG/MIN AND NORCURON @ 1.5 MCG/KG/MIN TOF CHECKED Q4H AND INSULIN DRIP 2U/HR WITH ORDER TO TITRATE PROTOCOL /MD ORDER. RIGHT FEMORAL A-LINE LABELED AND ZEROED. PATIENT IS SEDATED TOF 4 TWITCHES IN ENERGY OF 5 PRESENT. PATIENT HAS CARTER CATH WITH GOOD URINE OUTPUT. ORAL CARE PROVIDED. KEPT PT CLEAN AND DRY. WILL CONTINUE POC.
--- NOTE | 2021-02-18 20:17 | NUR ---
RT NOTE PT INTUBATED WITH 7.5 ET TUBE @ 25 CM. CUFF INFLATED. SX DONE, ET TUBE SECURED AND PATENT. VENT PLUGGED TO RED OUTLET. ALARMS ON AND AUDIBLE. NO RESPIRATORY DISTRESS NOTED. WILL CONTINUE TO MONITOR CLOSELY AND TITRATE FIO2 NEEDED. Addendum: 02/18/21 at 2019 by DEBBIE PLASENCIA RT Amended: Links added.
[2021-02-18] MEDS: NOREPINEPHRINE 32 MG in IV NS 0.9% 218 ML IV PRN (21:00)
--- NOTE | 2021-02-18 23:20 | NUR ---
RT NOTE FIO2 TITRATED TO 95%. PT TOLERATING WELL. ML MARK NOTIFIED. SPO2 @ 97%. WILL CONTINUE TO MONITOR CLOSELY.
--- NOTE | 2021-02-18 23:30 | NUR ---
RN NOTES 2300 PM -PATIENT SISTER DIVINA CAME TO VISIT PATIENT AND WANTED TO SPEAK WITH MD REGARDING ECMO TREATMENT. DIVINA WANTED MD TO SPEAK WITH CHARGE NURSE CONOR (OR CHARGE NURSE) AT [facility] FROM [place] EXPLAINED TO SISTER ABOUT THE CHAIN OF TRANSFERRING PATIENT FROM OTHER HOSPITAL. MD IS AWARE. EXPLAINED TO SISTER THAT THE MANUAL CONTROL AUGER PRESS OPERATOR IS THE ONE THAT'S WORKING REGARDING TRANSFERRING IF THE PATIENT IS ACCEPTED TO THE REQUESTED HOSPITAL. SISTER SOMEWHAT UNDERSTAND. 2320 PM - RT TITRATED FIO2 TO 95% FAMILY REQUESTED TO SLOWLY TITRATE IT DOWN. PATIETN TOLERATED IT SATURATION 97%, WILL CLOSELY MONITOR.
[2021-02-19] VITALS (48 sets, daily range): BP systolic 93–111; BP diastolic 49–68
[2021-02-19] MEDS: LACTULOSE 10 G/15 ML UDC (PYXIS) GT SCH ×5 (00:21→23:16)
[2021-02-19] MEDS: BLOOD SUGAR DIAGNOSTIC 1 EACH STRIP IN SCH ×13 (00:21→12:18)
[2021-02-19] MEDS: IV NS 0.9% 250 ML IV PRN (01:16)
[2021-02-19] MEDS: VECURONIUM 50 MG in IV NS 0.9% 50 ML IV PRN ×4 (01:27→20:41)
[2021-02-19] MEDS: FENTANYL CITRATE/PF 2,500 MCG in IV NS 0.9% 200 ML IV PRN ×4 (01:28→23:18)
[2021-02-19] MEDS: IV NS 0.9% 500 ML IV PRN (01:29)
[2021-02-19] MEDS: VANCOMYCIN 1 GM in IV D5W 250 ML IV SCH ×2 (03:01→20:12)
[2021-02-19] MEDS: MIDAZOLAM HCL 100 MG in IV NS 0.9% 80 ML IV PRN ×2 (03:17→13:32)
--- NOTE | 2021-02-19 04:00 | NUR ---
RT NOTE FIO2 TITRATED TO 90%. PT TOLERATING WELL. WILL CONTINUE TO MONITOR. ML MARK AWARE.
--- NOTE | 2021-02-19 04:10 | NUR ---
RN NOTES BED BATH DONE AND TOLERATED WELL SATURATION REMAINED 94- 95%. RT CAME AND TITRATED FIO2 TO 90%. PATIENT SATURATION AT THIS TIME 94%. WILL CLOSELY MONITOR.
[2021-02-19 04:19] LABS: BASOPHILS % (AUTO) 0.2 % (0.0-2.0); EOSINOPHILS % (AUTO) 0.1 % (0.0-6.0); HEMATOCRIT 35 % (39-51); HEMOGLOBIN 11.3 g/dL (13.5-17.5); LYMPHOCYTES # (AUTO) 0.6 K/uL (0.8-4.8); LYMPHOCYTES % (AUTO) 2.9 % (20.0-44.0); MEAN CORPUSCULAR HGB CONC 32 g/dl (31.0-36.0); MEAN CORPUSCULAR VOLUME 96 fL (80-96); MONOCYTES # (AUTO) 0.6 K/uL (0.1-1.30); NEUTROPHILS # (AUTO) 19.4 K/uL (1.8-8.9); NEUTROPHILS % (AUTO) 93.8 % (43.0-81.0); PLATELET COUNT (AUTO) 154 K/uL (150-450); RED BLOOD CELL COUNT(AUTO) 3.62 MIL/uL (4.5-6.0); WHITE BLOOD COUNT (AUTO) 20.7 K/uL (4.3-11.0)
[2021-02-19 05:23] LABS: CREATININE 1.3 mg/dL (0.6-1.3); MAGNESIUM 2.8 mg/dL (1.8-2.4); PHOSPHORUS 4.2 mg/dL (2.5-4.9); POTASSIUM 4.3 mmol/L (3.5-5.1)
[2021-02-19] MEDS: MEROPENEM 1 G in IV NS 0.9% 100 ML IV SCH ×3 (05:34→20:12)
[2021-02-19] MEDS: HEPARIN SODIUM, PORCINE 5000 UNITS/1 ML VIAL SQ SCH ×3 (05:35→20:18)
[2021-02-19] MEDS: INSULIN REGULAR, HUMAN 100 UNIT in IV NS 0.9% 99 ML IV PRN (05:40)
--- NOTE | 2021-02-19 07:10 | NUR ---
RN OPENING NOTES RECEIVED PT ORALLY INTUBATED WITH ETT 7.5/25 CM AT LIP. VENT SETTING FOLLOWS AC: 34, TV:530, FIO2:100% AND PEEP 15. O2 SATURATION @96%. TEMPERATURE 96.1F. SR ON MONITOR. IV ACCESS ON OPAL PICC LINE INTACT AND PATENT. ON FENTANYL DRIP @300MCG/KG/HR, VERSED @9MCG/KG/HR, INSULIN DRIP @2U/HR AND NORCURON @1.5MCG/KG/MIN. TOF CHECKED Q4H. RIGHT FEMORAL A-LINE LABELED AND ZEROED. CARTER CATH IN PLACE. SAFETY MEASURES IN PLACE. BED LOCKED AND IN LOWEST POSITION WITH SIDE RAILS UP X3. WILL CONTINUE TO MONITOR.
--- NOTE | 2021-02-19 07:15 | NUR ---
RN NOTES NO SIGNIFICANT CHANGE OF CONDITION THROUGHOUT THE SHIFT. AFEBRILE. VSS. OFF PRESSOR AT 5 AM TOLERATED WELL. FIO2 90% TOLERATED WELL SATURATION BETWEEN 94-97%. NO APPARENT DISTRESS. PATIENT CONTINUE ON SEDATION FENTANYL, VERSED, NORCURON AND INSULIN DRIP TITRATED ORDERED. ENDORSED TO AM SHIFT. TO FOLLOW UP ABOUT THE FEEDING AND TO CALL THE FAMILY IF NEEDED TO RESTART THE FEEDING AND THEY WILL BRING IT, WELL MARKETING SEGMENT MANAGER REGARDING THE TRANSFER TO HIGHER LEVEL OF CARE.
--- NOTE | 2021-02-19 07:26 | NUR ---
WOUND CARE FOLLOW UP: REVIEWED CHART, NURSING DOCUMENTATION, PHOTO AND DISCUSSED SKIN WITH RN. PHOTO INDICATES SACRAL DEEP TISSUE INJURY IN EVOLUTION. RECOMMENDATIONS MADE FOR SKIN PROTECTION AND WOUND CARE. DISCUSSED WITH NURSING STAFF. PT IS ON FIRST STEP CIRS LOW AIRLOSS MATTRESS. PT NOTED TO HAVE MULTIPLE CO-MORBIDITIES INCLUDING COVID 19 PNEUMONIA, RESPIRATORY FAILURE (CURRENTLY INTUBATED), ACUTE RENAL FAILURE, SEPTIC SHOCK AND MULTIORGAN DYSFUNCTION. DUE TO MULTIPLE CO-MORBIDITIES, FURTHER SKIN BREAKDOWN MAY BE UNAVOIDABLE. ALL SKIN PROTECTION MEASURES IN PLACE. MD IN AGREEMENT WITH PLAN OF CARE.
[2021-02-19 08:22] LABS: ABG BASE EXCESS 4.8 mmol/L; ABG OXYGEN SATURATION 85.7 % (92.0-98.5); ABG PCO2 52.8 mmHg (35.0-45.0); ABG PH 7.385 (7.350-7.450); ABG PO2 53.6 mmHg (75.0-100.0); COHb 0.7 % (0.5-1.5); MetHb 0.2 % (0.0-1.5); O2Hb 84.9 % (94.0-97.0); SITE, ABG Right Radial; VENT MODE, BG AC 34 530 +15 90%
[2021-02-19] MEDS: FLUDROCORTISONE 0.1 MG TABLET NG SCH (08:50)
[2021-02-19] MEDS: THIAMINE HCL 100 MG TABLET PO SCH (08:50)
[2021-02-19] MEDS: ASCORBIC ACID 500 MG TABLET PO SCH (08:50)
[2021-02-19] MEDS: CHOLECALCIFEROL 1,000 UNIT TABLET (VIT D3) PO SCH (08:50)
[2021-02-19] MEDS: ZINC SULFATE 220 MG CAPSULE PO SCH (08:50)
[2021-02-19] MEDS: FLUCONAZOLE (100 MG) 100 MG TABLET PO SCH (08:50)
[2021-02-19] MEDS: DEXAMETHASONE SOD PHOSPHATE 10 MG/ML VIAL IV SCH (08:50)
[2021-02-19] MEDS ORDERED: IV D5W 1,000 ML IV SCH (11:30)
--- NOTE | 2021-02-19 17:23 | NUR ---
RN NOTES FAMILY MEMBER NOT DOES AGREE WITH TUBE FEEDING RECOMMENDATION. WILL HOLD OFF FEEDING UNTIL FAMILY'S DECISION IS MADE.
[2021-02-19] MEDS: MISCELLANEOUS MED 1 EA EA NG PRN (18:52)
--- NOTE | 2021-02-19 19:24 | NUR ---
RN NOTES FAMILY MEMBER CAME AND AGREED ON STARTING PT ON DIABETISOURCE @20MLS/HR. TOLERATING VENT SETTINGS WELL. SEDATED. AFEBRILE. ALL DUE MEDS GIVEN. NEEDS ATTENDED. KEPT CLEAN AND COMFORTABLE. VS STABLE. SAFETY MEASURES IN PLACE. ENDORSED TO NIGHT RN FOR ARACELIS.
--- NOTE | 2021-02-19 20:00 | NUR ---
FORENSIC EXAMINER. INITIAL ASSESSMENT. RECEIVED THE PT REST ON THE BED. ORALLY INTUBATED. SEDATED WITH FENTANYL A, VERSED AND VECURONIUM. OGT INTACT. DIABETIC SOURCE 20ML/H. RT AND LT UPPER ARM PICC LINE. RT FEMORAL A LINE. FC PATENT. GUNJAN UPPER AND LOWER EXTREMITY SWELLON.HOB ELEVATED. TURN THE PT RT SIDE. LT SIDE TURN NOTED DESATURATION. A FEBRILE. WILL CONTINUE TO MONITOR VITALS.
--- NOTE | 2021-02-19 21:13 | NUR ---
PT INTUBATED 7.5 ETT SECURED AT 25CM AT THE LIP. TOLERATING VENT SETTINGS. O2 SAT 90-92%. VENT ALARMS SET AND AUDIBLE. CONTINUE TO MONITOR CLOSELY. Addendum: 02/19/21 at 2115 by ANA CRISTINA CHRISTY RT Amended: Links added.
--- NOTE | 2021-02-19 21:42 | NUR ---
ROADWAY ENGINEER. PT BROTHER AND SISTER IS HERE , UPDATE GIVEN.
[2021-02-20] VITALS (79 sets, daily range): BP systolic 10–125; BP diastolic 37–74
[2021-02-20] MEDS: MIDAZOLAM HCL 100 MG in IV NS 0.9% 80 ML IV PRN ×3 (01:04→23:36)
[2021-02-20] MEDS: VECURONIUM 50 MG in IV NS 0.9% 50 ML IV PRN ×4 (01:45→22:53)
--- NOTE | 2021-02-20 03:24 | NUR ---
METROLOGY TECHNICIAN. PT SISTER AND BROTHER CALLED. UP DATE GIVEN.
--- NOTE | 2021-02-20 03:25 | NUR ---
NOXIOUS WEEDS AND PEST INSPECTOR. AM CARE GIVEN. REMAINING SAME VENT SETTINGS TOLERATED WELL. SAT 06%. NO ACUTE DISTRESS NOTED. CLINICAL PROJECT MANAGER SHOWING NSR.IV RT UPPER ARM PICC LINE VERSED 9MCG /H, FENTANYL 300MCG/H. FC PATENT. URINE DRAINING. HOB ELEVATED. TURN AND REPOSITION Q2H. TURNING RT AND SUPINE POSITION TOLERATED WELL. WILL CONTINUE TO MONITOR VITALS.
[2021-02-20] MEDS: MEROPENEM 1 G in IV NS 0.9% 100 ML IV SCH ×3 (04:21→20:20)
[2021-02-20 04:28] LABS: CALCIUM, SERUM 7.3 mg/dL (8.5-10.1); CREATININE 1.4 mg/dL (0.6-1.3); POTASSIUM 5.2 mmol/L (3.5-5.1)
--- NOTE | 2021-02-20 05:50 | NUR ---
horticulturalist. pt tolerating reposition rt and supine position only. oxygen sat 95-96% during shift.
[2021-02-20] MEDS: LACTULOSE 10 G/15 ML UDC (PYXIS) GT SCH ×3 (05:56→18:19)
[2021-02-20] MEDS: HEPARIN SODIUM, PORCINE 5000 UNITS/1 ML VIAL SQ SCH ×3 (06:02→20:21)
--- NOTE | 2021-02-20 08:00 | NUR ---
RN NOTES RECEIVED PATIENT CRITICAL ETT/VENT SETTING WITH SEDATION OF FENTANYL 300 MCG/KG/MIN, AND VERSED 9MG/KG/HR. FIO2-100, AC-34, PEEP- 5. PATIENT ARTERIAL BP ON 90/56, O-2- 95%,, SR-84 ON BEDSIDE MONITOR. CARTER DRAINING YELLOW OUTPUT. RUNNING NON FORMULARY FEEDING 20ML/HR NO RESIDUAL, KEEP HOB ELEVATED. ASSIST TURN AND REPOSTION Q 2 HR. WILL FOLLOW UP.
[2021-02-20] MEDS: THIAMINE HCL 100 MG TABLET PO SCH (08:53)
[2021-02-20] MEDS: FLUDROCORTISONE 0.1 MG TABLET NG SCH (08:54)
[2021-02-20] MEDS: CHOLECALCIFEROL 1,000 UNIT TABLET (VIT D3) PO SCH (08:54)
[2021-02-20] MEDS: FLUCONAZOLE (100 MG) 100 MG TABLET PO SCH (08:54)
[2021-02-20] MEDS: DEXAMETHASONE SOD PHOSPHATE 10 MG/ML VIAL IV SCH (08:54)
[2021-02-20] MEDS: ASCORBIC ACID 500 MG TABLET PO SCH (08:55)
[2021-02-20] MEDS: ZINC SULFATE 220 MG CAPSULE PO SCH (08:55)
--- NOTE | 2021-02-20 10:00 | NUR ---
rn notes absent of clinical movement to TOF test, titrated down per protocol, dr Duval notified.
[2021-02-20] MEDS: FENTANYL CITRATE/PF 2,500 MCG in IV NS 0.9% 200 ML IV PRN ×2 (10:06→16:26)
[2021-02-20] MEDS: HYDROCORTISONE SOD SUCCINATE 100 MG/2 ML VIAL IV SCH ×2 (12:21→20:22)
[2021-02-20 13:40] LABS: ABG OXYGEN SATURATION 87.2 % (92.0-98.5); ABG PCO2 67.1 mmHg (35.0-45.0); ABG PH 7.357 (7.350-7.450); ABG PO2 56.8 mmHg (75.0-100.0); AaDO2 589.1 mmHg; COHb 0.6 % (0.5-1.5); MetHb 0.1 % (0.0-1.5); O2Hb 86.6 % (94.0-97.0); PEEP,BG 15 cm H2O; SITE, ABG A-Line; VT, ABG 530 mL
[2021-02-20] MEDS: IV NS 0.9% 250 ML IV PRN (14:00)
[2021-02-20] MEDS: VANCOMYCIN 1 GM in IV D5W 250 ML IV SCH (16:28)
[2021-02-20] MEDS: MISCELLANEOUS MED 1 EA EA NG PRN (16:33)
--- NOTE | 2021-02-20 18:30 | NUR ---
RN NOTES PATIENT CONDITION STILL CRITICAL FI0-2-100, PEEP 5, SEDATED WITH FENTANYL 300MCG/KH/MIN, AND VERSED 9MG/ML/MIN. NEUROMUSCULAR BLOCKING PARALYTIC IS TITRATED UP 1.4 TOF -4TWITCHES.PM CARE DONE, SUCTION, MOUTH CARE. DUE MEDICATION ADMINISTERED. TURN AND REPOSTION Q 2HR. CARTER OUTPUT WAS 600ML. ENDORSED ONCOMING NURSE FOLLOW ARACELIS.
[2021-02-20 18:46] LABS: CALCIUM, SERUM 7.1 mg/dL (8.5-10.1); CREATININE 1.4 mg/dL (0.6-1.3); POTASSIUM 5.2 mmol/L (3.5-5.1)
--- NOTE | 2021-02-20 20:00 | NUR ---
MOISTURE TESTER. INITIAL ASSESSMENT.RECEIVED THE PT REST ON THE BED. ORALLY INTUBATED. SEDATED WITH VERSED. FENTANYL AND VECURONIUM. IV RTAND LT UPPER ARM PICC LINE. RT FEMORAL A LINE. FC PATENT. URINE DRAINING. AFEBRILE. TURNANDRTEPOSITION RT AND SUPINEPOSITION ONLY. LT SIDE POSITION PT DESATURATION NOTED.
[2021-02-20] MEDS: IV NS 0.9% 500 ML IV PRN (20:19)
[2021-02-21] VITALS (84 sets, daily range): BP systolic 99–133; BP diastolic 50–81
[2021-02-21] MEDS: FENTANYL CITRATE/PF 2,500 MCG in IV NS 0.9% 200 ML IV PRN ×3 (00:38→18:38)
[2021-02-21] MEDS: LACTULOSE 10 G/15 ML UDC (PYXIS) GT SCH ×5 (01:45→23:18)
--- NOTE | 2021-02-21 02:55 | NUR ---
CIVIL ENGINEERING INTERN. FAMILY CALLED UPDATE GIVEN.
--- NOTE | 2021-02-21 02:56 | NUR ---
ASSISTANT TENNIS COACH. PT TOLERATED RT SIDE TURN AND SUPINE ONLY. SAT NOW 92%.
--- NOTE | 2021-02-21 02:57 | NUR ---
DROP PRESS HAND. AM CARE GIVEN. REMAINING SAME VENT SETTINGS ON. HOB ELEVATED.REMAINING SAME FENTANYL, VERSED AND VECURONIUM RUNNING. FC PATENT, URINE DRAINING, WILL CONTINUE TO MONITOR VITALS.
[2021-02-21] MEDS: VECURONIUM 50 MG in IV NS 0.9% 50 ML IV PRN ×3 (04:28→18:38)
[2021-02-21 04:35] LABS: CALCIUM, SERUM 7.3 mg/dL (8.5-10.1); CREATININE 1.3 mg/dL (0.6-1.3); POTASSIUM 5.4 mmol/L (3.5-5.1)
--- NOTE | 2021-02-21 05:24 | NUR ---
agricultural engineering technician. family called. update given.
[2021-02-21] MEDS: HYDROCORTISONE SOD SUCCINATE 100 MG/2 ML VIAL IV SCH ×3 (06:09→20:09)
[2021-02-21] MEDS: MEROPENEM 1 G in IV NS 0.9% 100 ML IV SCH (06:09)
[2021-02-21] MEDS: HEPARIN SODIUM, PORCINE 5000 UNITS/1 ML VIAL SQ SCH ×3 (06:17→20:10)
[2021-02-21 06:20] LABS: BASOPHILS % (AUTO) 0.1 % (0.0-2.0); HEMATOCRIT 37 % (39-51); HEMOGLOBIN 11.7 g/dL (13.5-17.5); LYMPHOCYTES # (AUTO) 0.2 K/uL (0.8-4.8); LYMPHOCYTES % (AUTO) 1.2 % (20.0-44.0); MEAN CORPUSCULAR HGB CONC 32 g/dl (31.0-36.0); MEAN CORPUSCULAR VOLUME 99 fL (80-96); MONOCYTES # (AUTO) 0.3 K/uL (0.1-1.30); MONOCYTES % (AUTO) 2.4 % (2.0-12.0); NEUTROPHILS # (AUTO) 12.7 K/uL (1.8-8.9); NEUTROPHILS % (AUTO) 96.3 % (43.0-81.0); PLATELET COUNT (AUTO) 147 K/uL (150-450); RED BLOOD CELL COUNT(AUTO) 3.72 MIL/uL (4.5-6.0); WHITE BLOOD COUNT (AUTO) 13.2 K/uL (4.3-11.0)
--- NOTE | 2021-02-21 07:30 | NUR ---
ICU/RN PT IS INTUBATED ON THE VENT AC MODE,FIO2-100%,AC-34.PEEP-15.SAT O2-83%, SEDATED WITH VERSED AND FENTANYL ON NORCURON DRIP.OFF LEVOPHED.V/S STABLE,AFEBRILE.RIGHT UPPER ARM PICC LINE .LEFT UPPER ARM MIDLINE.OG TUBE IN PLACE INFUSING WITH DIABETISOURCE AT 45 ML/HR , 10 ML RESIDUAL NOTED.F/C IN PLACE DRAINING WITH YELLOW URINE.GENERALIZED EDEMA PRESENT.SACRAL AREA WOUND COVERED WITH DRESSING.SUCTION PROVIDED.REPOSITION FOR COMFORT.LABS REVIEW. NOTIFIED.
[2021-02-21] MEDS: FLUCONAZOLE (100 MG) 100 MG TABLET PO SCH (08:15)
[2021-02-21] MEDS: FLUDROCORTISONE 0.1 MG TABLET NG SCH (08:15)
[2021-02-21] MEDS: ASCORBIC ACID 500 MG TABLET PO SCH (08:15)
[2021-02-21] MEDS: ZINC SULFATE 220 MG CAPSULE PO SCH (08:15)
[2021-02-21] MEDS: THIAMINE HCL 100 MG TABLET PO SCH (08:15)
[2021-02-21] MEDS: DEXAMETHASONE SOD PHOSPHATE 10 MG/ML VIAL IV SCH (08:15)
[2021-02-21] MEDS: CHOLECALCIFEROL 1,000 UNIT TABLET (VIT D3) PO SCH (08:15)
[2021-02-21] MEDS: VANCOMYCIN 1 GM in IV D5W 250 ML IV SCH (08:29)
[2021-02-21] MEDS ORDERED: NS 0.9% IV PRN (09:00)
[2021-02-21] MEDS ORDERED: ROCURONIUM BROMIDE IV PRN (09:00)
--- NOTE | 2021-02-21 09:10 | NUR ---
ICU/RN DUE MEDS ARE GIVEN ORDERED.ABG DONE .MD NOTIFIED.
--- NOTE | 2021-02-21 09:18 | NUR ---
RT NOTE ABG RESULTS PLACED IN PATIENT'S CHART. ML MCCARTNEY.
[2021-02-21] MEDS: MIDAZOLAM HCL 100 MG in IV NS 0.9% 80 ML IV PRN ×2 (10:08→22:31)
[2021-02-21] MEDS ORDERED: DEXTROSE 50%-WATER 50 ML DISP.SYRIN IV PRN ×2 (11:00→11:30)
[2021-02-21] MEDS ORDERED: INSULIN REGULAR, HUMAN 100 UNIT/ML 3 ML VIAL SQ PRN (11:30)
[2021-02-21] MEDS ORDERED: SODIUM POLYSTYRENE SULFONATE 15 G/60 ML BOTTLE PO ONE (11:30)
[2021-02-21] MEDS: BLOOD SUGAR DIAGNOSTIC 1 EACH STRIP IN SCH ×3 (11:56→23:28)
[2021-02-21] MEDS ORDERED: BLOOD SUGAR DIAGNOSTIC 1 EACH STRIP IN SCH (12:00)
[2021-02-21] MEDS: MISCELLANEOUS MED 1 EA EA NG PRN ×2 (12:01→19:00)
[2021-02-21] MEDS: INSULIN REGULAR, HUMAN 100 UNIT/ML 3 ML VIAL SQ PRN ×3 (12:34→23:29)
--- NOTE | 2021-02-21 14:37 | NUR ---
ICU/RN DIETITIAN TALK TO THE FAMILY .OK TO CHANGE FEEDING FORMULA TO KATEFARMS.MD NOTIFIED. NEW ORDER PLACED.KATEFARMS AT 40 ML/HR FOR 24 HRS.
--- NOTE | 2021-02-21 18:00 | NUR ---
ICU/RN PM CARE PROVIDED .WOUND DRESSING DONE ORDERED. DUE MEDS ARE GIVEN ORDERED..REPOSITION FOR COMFORT.
--- NOTE | 2021-02-21 19:05 | NUR ---
RECEIVED PT ON BED ORALLY INTUBATED AND SEDATED VENT SETTING PER MD, FIO2 100% SPO2 90% NO SIGN OF DISTRESS, BEDSIDE MONITOR READS SINUS RHYTHM 70'S , GINGER PICC WITH ONGOING FENTANYL @ 300MCG/HR, VERSED @ 9 MCG/HR , NORCURON @1.5 MCG/KG/MIN, TO TITRATE PER PROTOCOL ;INFUSING WELL, HAVE OGTUBE ON PLACE WITH ONGOING KATEFARM @40 ML/HR RESIDUAL 10 ML , CARTER CATHETER DRAINING YELLOW URINE VIA GRAVITY GENERALIZED EDEMA NOTED ,BED LOWEST POSITION AND LOCKED SIDE RAILS UP X2 WILL CONT TO MONITOR
--- NOTE | 2021-02-21 19:37 | NUR ---
RECEIVED PT INTUBATED ON VENT. O2 SAT 91%. VENT SETTINGS AC 34, 530, 100% + 15. VENT ALARMS SET AND AUDIBLE. CONTINUE TO MONITOR CLOSELY. Addendum: 02/21/21 at 1939 by ANA CRISTINA CHRISTY RT Amended: Links added.
[2021-02-22] VITALS (46 sets, daily range): BP systolic 95–145; BP diastolic 52–72
[2021-02-22] MEDS: VECURONIUM 50 MG in IV NS 0.9% 50 ML IV PRN ×4 (01:11→18:34)
[2021-02-22] MEDS: FENTANYL CITRATE/PF 2,500 MCG in IV NS 0.9% 200 ML IV PRN ×3 (03:01→21:01)
[2021-02-22] MEDS: IV NS 0.9% 250 ML IV PRN (03:02)
[2021-02-22] MEDS: IV NS 0.9% 500 ML IV PRN (04:07)
[2021-02-22] MEDS: HEPARIN SODIUM, PORCINE 5000 UNITS/1 ML VIAL SQ SCH ×3 (04:37→20:18)
[2021-02-22] MEDS: HYDROCORTISONE SOD SUCCINATE 100 MG/2 ML VIAL IV SCH ×3 (04:37→20:16)
[2021-02-22] MEDS: LACTULOSE 10 G/15 ML UDC (PYXIS) GT SCH ×2 (05:03→13:18)
[2021-02-22 05:20] LABS: CALCIUM, SERUM 7.9 mg/dL (8.5-10.1); CREATININE 1.1 mg/dL (0.6-1.3); POTASSIUM 4.9 mmol/L (3.5-5.1)
[2021-02-22] MEDS: BLOOD SUGAR DIAGNOSTIC 1 EACH STRIP IN SCH ×3 (05:54→18:11)
[2021-02-22] MEDS: INSULIN REGULAR, HUMAN 100 UNIT/ML 3 ML VIAL SQ PRN ×4 (05:55→23:21)
--- NOTE | 2021-02-22 07:30 | NUR ---
OPENING NOTE: REPORT RECEIVED FROM VIVEK BULL. PT SEDATED AND PARALYZED ON FENTANYL, VERSED AND NORCURON PER MD ORDERS, NO CHANGE IN DOSE THIS SHIFT. TUBE FEEDING INFUSING PER MD ORDERS. NO SEDATION VACATION PER MD ORDER FOR PEEP OF 15. PT CHECKED ON HOURLY AND PRN BY NURSING STAFF.
--- NOTE | 2021-02-22 08:00 | NUR ---
ISOLATION DC'D PER DR. DINERO YESTERDAY DURING HIS ROUNDS, DR. GARCIA AGREES, VETO ROBERTS DNP AGREES, D/T PT'S BEING ADMITTED OVER 21 DAYS.
[2021-02-22] MEDS: ZINC SULFATE 220 MG CAPSULE PO SCH (08:35)
[2021-02-22] MEDS: THIAMINE HCL 100 MG TABLET PO SCH (08:35)
[2021-02-22] MEDS: CHOLECALCIFEROL 1,000 UNIT TABLET (VIT D3) PO SCH (08:35)
[2021-02-22] MEDS: DEXAMETHASONE SOD PHOSPHATE 10 MG/ML VIAL IV SCH (08:35)
[2021-02-22] MEDS: FLUDROCORTISONE 0.1 MG TABLET NG SCH (08:35)
[2021-02-22] MEDS: ASCORBIC ACID 500 MG TABLET PO SCH (08:36)
[2021-02-22] MEDS: MIDAZOLAM HCL 100 MG in IV NS 0.9% 80 ML IV PRN ×2 (09:51→21:02)
[2021-02-22] MEDS: MISCELLANEOUS MED 1 EA EA NG PRN (16:33)
--- NOTE | 2021-02-22 19:08 | NUR ---
END OF SHIFT NOTE: PT HAD AN UNEVENTFUL SHIFT. RECTAL TUBE INSERTED D/T LIQUID STOOL PER MD ORDERS. FENTANYL, NORCURON AND VERSED CONTINUE TO INFUSE PER MD ORDERS, NO CHANGE IN RATES THIS SHIFT. NO CHANGE IN VENT SETTINGS THIS SHIFT. PT CHECKED ON HOURLY AND PRN BY NURSING STAFF.
--- NOTE | 2021-02-22 19:10 | NUR ---
RECEIVED PT ON BED ORALLY INTUBATED AND SEDATED VENT SETTING PER MD, FIO2 100% SPO2 90% NO SIGN OF DISTRESS, BEDSIDE MONITOR READS SINUS RHYTHM 70'S , GINGER PICC WITH ONGOING FENTANYL @ 300MCG/HR, VERSED @ 9 MCG/HR , NORCURON @1.5 MCG/KG/MIN, TO TITRATE PER PROTOCOL ;INFUSING WELL, HAVE OGTUBE ON PLACE WITH ONGOING KATEFARM @40 ML/HR RESIDUAL 5 ML , CARTER CATHETER DRAINING YELLOW URINE VIA GRAVITY GENERALIZED EDEMA NOTED ,BED LOWEST POSITION AND LOCKED SIDE RAILS UP X2 WILL CONT TO MONITOR
[2021-02-23] VITALS (43 sets, daily range): BP systolic 88–136; BP diastolic 50–74
[2021-02-23] MEDS: BLOOD SUGAR DIAGNOSTIC 1 EACH STRIP IN SCH ×5 (00:02→23:25)
[2021-02-23] MEDS: VECURONIUM 50 MG in IV NS 0.9% 50 ML IV PRN ×4 (00:30→22:58)
[2021-02-23] MEDS: IV NS 0.9% 500 ML IV PRN (04:12)
[2021-02-23] MEDS: IV NS 0.9% 250 ML IV PRN (04:12)
[2021-02-23] MEDS: HYDROCORTISONE SOD SUCCINATE 100 MG/2 ML VIAL IV SCH ×3 (04:14→21:21)
[2021-02-23] MEDS: HEPARIN SODIUM, PORCINE 5000 UNITS/1 ML VIAL SQ SCH ×3 (04:15→21:33)
[2021-02-23 05:05] LABS: CALCIUM, SERUM 7.8 mg/dL (8.5-10.1); CREATININE 0.9 mg/dL (0.6-1.3); POTASSIUM 5.4 mmol/L (3.5-5.1)
[2021-02-23] MEDS: INSULIN REGULAR, HUMAN 100 UNIT/ML 3 ML VIAL SQ PRN ×5 (05:37→23:15)
[2021-02-23] MEDS: FENTANYL CITRATE/PF 2,500 MCG in IV NS 0.9% 200 ML IV PRN ×3 (06:01→22:49)
--- NOTE | 2021-02-23 06:37 | NUR ---
PT ON BED STILL SEDATED, ON FULL VENT SUPPORT FIO2 100% SPO2 89-91% NO RESPIRATORY DISTRESS NOTED, BEDSIDE MONITOR READS SINUS RHYTHM 60'S, STILL ON FENTANYL @300 MCG/HR VERSED @ 9MCG/HR NORCURON @ 1.5 MCG/KG/MIN, STILL WITH ONGOING KATEFARM @ 40ML/HR VIA OGTUBE RESIDUAL CHECKED REGULARLY, BED ON LOWEST POSITION AND LOCKED SIDE RAILS UP X2 WILL CONT TO MONITOR
[2021-02-23] MEDS: MIDAZOLAM HCL 100 MG in IV NS 0.9% 80 ML IV PRN ×2 (06:59→18:03)
--- NOTE | 2021-02-23 08:00 | NUR ---
rn notes RECEIVED PATIENT ON ETT/ VENT SUPPORT FIO2 100% SPO2 93%,PEEP-15, WITH SEDATION [id number]/KG/MIN. AND VERSED 9MG/ML/MIN. PATIENT ON CRITICAL CONDITION, NO RESPIRATORY DISTRESS NOTED AT THIS TIME. BEDSIDE MONITOR SHOWS SINUS RHYTHM 58 TO 60'S. INFUSING NORCURON @ 1.5 MCG/KG/MIN, STILL WITH ONGOING KATEFARM @ 40ML/HR VIA OG TUBE NO RESIDUAL CHECKED. KEEP HOB ELEVATED FOR ASPIRATION PRECAUTION. BED ON LOWEST POSITION AND LOCKED SIDE RAILS UP X2 WILL CONT TO MONITOR.
[2021-02-23] MEDS: CHOLECALCIFEROL 1,000 UNIT TABLET (VIT D3) PO SCH (09:30)
[2021-02-23] MEDS: ZINC SULFATE 220 MG CAPSULE PO SCH (09:30)
[2021-02-23] MEDS: ASCORBIC ACID 500 MG TABLET PO SCH (09:30)
[2021-02-23] MEDS: DEXAMETHASONE SOD PHOSPHATE 10 MG/ML VIAL IV SCH (09:30)
[2021-02-23] MEDS: FLUDROCORTISONE 0.1 MG TABLET NG SCH (09:31)
[2021-02-23] MEDS: THIAMINE HCL 100 MG TABLET PO SCH (09:31)
--- NOTE | 2021-02-23 12:00 | NUR ---
RN NOTES BS-177MG/DL COVERAGE GIVEN, SEEN PATIENT VIA HOSPITALIST JUAN FRANCISCO, AND AIR CARRIER MAINTENANCE INSPECTOR Dr BEATTY. AM CARE DONE. ASSIST TURN AND REPOSITION Q 2 HR. SISTER NEXT TO THE BED. REPOSTION PATIENT ON SUPINE OXYGEL IS 94%. WILL FOLLOW UP.
[2021-02-23] MEDS: MISCELLANEOUS MED 1 EA EA NG PRN (15:00)
[2021-02-23] MEDS: FUROSEMIDE 20 MG/2 ML VIAL IV SCH (17:46)
--- NOTE | 2021-02-23 18:30 | NUR ---
RN VIKAS BS-220 MG/DL COVERAGE GIVEN, MOUTH CARE DONE, SUCTION, RUNNING KATEARMS 40ML/HR, NO RESIDUAL, AM CARE DONE, DUE MEDICATION ADMINISTERED. VSS. FAMILY NEXT TO THE BED. ASSIST TURN AND REPOSTION Q 2HR ON RIGHT SIDE . ENDORSED ONCOMING NURSE FOLLOW PLAN OF CARE.
--- NOTE | 2021-02-23 19:35 | NUR ---
RN NOTES RECEIVED PATIENT ON BED. ORALLY INTUBATED WITH ETT 7.5 AND 25 CM AT LIP VENT ETTING ON AC 34 TV 530 FIO2 100% AND PEEP 5. SEDATED. SR ON MONITOR. HR ON 60'S. IV SITE ON OPAL PICC LINE WTH FENTANYL 300 MCG/HR VERSED 9 MCG/HR AND NORCURON 1.5 MCG/KG/MIN TOLERATED WELL, WILL TITRATED ORDERED. TOF SCORE 4/4. GENERALIZED EDEMA PRESENT. GTF KATEFARM @ 40 ML/HR M GT SITE INTACT AND PATENT WITH NO RESIDUAL. OFFLOADED EXT WITH PILLOWS. FLEXISEAL AND CARTER CATH DRAINED WELL AND OFF FROM THE FLOOR. TURNED AND REPOSITIONED NEEDED. WILL CONTINUE TO MONITOR.
[2021-02-24] VITALS (39 sets, daily range): BP systolic 95–159; BP diastolic 53–91
[2021-02-24] MEDS: IV NS 0.9% 250 ML IV PRN (02:25)
[2021-02-24] MEDS: IV NS 0.9% 500 ML IV PRN (02:25)
--- NOTE | 2021-02-24 03:00 | NUR ---
RN NOTES BEDBATH DONE AND TOLERATED SATURATION 92%. VSS. CONTNUE WITH ALL POC
[2021-02-24 04:34] LABS: BASOPHILS % (AUTO) 0.3 % (0.0-2.0); HEMATOCRIT 38 % (39-51); HEMOGLOBIN 12.2 g/dL (13.5-17.5); LYMPHOCYTES # (AUTO) 0.2 K/uL (0.8-4.8); LYMPHOCYTES % (AUTO) 2.7 % (20.0-44.0); MEAN CORPUSCULAR HGB CONC 32 g/dl (31.0-36.0); MEAN CORPUSCULAR VOLUME 99 fL (80-96); MONOCYTES # (AUTO) 0.3 K/uL (0.1-1.30); MONOCYTES % (AUTO) 3.8 % (2.0-12.0); NEUTROPHILS # (AUTO) 8.2 K/uL (1.8-8.9); NEUTROPHILS % (AUTO) 93.2 % (43.0-81.0); PLATELET COUNT (AUTO) 110 K/uL (150-450); RED BLOOD CELL COUNT(AUTO) 3.83 MIL/uL (4.5-6.0); WHITE BLOOD COUNT (AUTO) 8.8 K/uL (4.3-11.0)
[2021-02-24 04:45] LABS: CALCIUM, SERUM 8.1 mg/dL (8.5-10.1); CREATININE 0.8 mg/dL (0.6-1.3); POTASSIUM 5.5 mmol/L (3.5-5.1)
[2021-02-24] MEDS: HYDROCORTISONE SOD SUCCINATE 100 MG/2 ML VIAL IV SCH ×3 (05:58→21:21)
[2021-02-24] MEDS: HEPARIN SODIUM, PORCINE 5000 UNITS/1 ML VIAL SQ SCH ×2 (06:02→12:17)
[2021-02-24] MEDS: MIDAZOLAM HCL 100 MG in IV NS 0.9% 80 ML IV PRN ×2 (06:12→17:04)
[2021-02-24] MEDS: VECURONIUM 50 MG in IV NS 0.9% 50 ML IV PRN (06:13)
[2021-02-24] MEDS: BLOOD SUGAR DIAGNOSTIC 1 EACH STRIP IN SCH ×3 (06:37→17:05)
[2021-02-24] MEDS: INSULIN REGULAR, HUMAN 100 UNIT/ML 3 ML VIAL SQ PRN ×3 (06:38→17:49)
--- NOTE | 2021-02-24 07:15 | NUR ---
RN NOTES PATIENT REMANED THE SAME. NO SIGNIFICANT CHANGES NOTED CONTINUE ON SEDATION OF FENTANYL AND VERSED DRIP WELL PARALYTIC MEDS NORCURON AT MAX DOSE. PATIENT TOLERATED ETT AND VENT SETTING SB/SR ON MONITOR. SATURATION BETWEEN 88-92%, AFEBRILE. VSS WITHOUT PRESSOR. KATEFARM TOLERATED WELL. FLEXISEAL AND CARTER CATH DRAINED WELL KEPT OFF FROM THE FLOOR. KEPT PT CLEAN AND DRY. TURN AND REPOSITION Q2H AND PRN. ENDORSED CONTINUITY OF CARE TO AM NURSE.
--- NOTE | 2021-02-24 07:40 | NUR ---
ICU/RN PT IS INTUBATED ON THE VENT AC MODE,FIO2-100% PEEP-15. SAT O2-89%.SEDATED WITH VERSED AND FENTANYL. ON NORCURON DRIP. TOF 3/4.V/S STABLE.AFEBRILE.NO PAIN REPORTED AT THIS TIME.RIGHT UPPER ARM PICC LINE..RIGHT FEMORAL A-LINE.OG TUBE IN PLACE FEEDING IS INFUSING ORDERED AT 40 ML/HR.NO RESIDUAL NOTED. F/C DRAINING WITH MARIA M URINE.GENERALIZED EDEMA PRESENT.SACRAL WOUND COVERED WITH MEPILEX. LABS REVIEW. NOTIFIED.
[2021-02-24] MEDS: FENTANYL CITRATE/PF 2,500 MCG in IV NS 0.9% 200 ML IV PRN ×2 (07:46→17:03)
[2021-02-24] MEDS: FLUDROCORTISONE 0.1 MG TABLET NG SCH (08:26)
[2021-02-24] MEDS: ZINC SULFATE 220 MG CAPSULE PO SCH (08:26)
[2021-02-24] MEDS: DEXAMETHASONE SOD PHOSPHATE 10 MG/ML VIAL IV SCH (08:26)
[2021-02-24] MEDS: THIAMINE HCL 100 MG TABLET PO SCH (08:26)
[2021-02-24] MEDS: FUROSEMIDE 20 MG/2 ML VIAL IV SCH ×2 (08:26→17:03)
[2021-02-24] MEDS: CHOLECALCIFEROL 1,000 UNIT TABLET (VIT D3) PO SCH (08:26)
[2021-02-24] MEDS: ASCORBIC ACID 500 MG TABLET PO SCH (08:26)
--- NOTE | 2021-02-24 09:00 | NUR ---
ICU/RN DUE MEDS ARE GIVEN ORDERED.DR ARSHAD SEEN THE PT .WEANING OFF NORCURON DRIP PER PROTOCOL. ABG DONE. CONTINUE MONITORING.
[2021-02-24 11:39] LABS: ABG BASE EXCESS 6.8 mmol/L; ABG OXYGEN SATURATION 86.5 % (92.0-98.5); ABG PCO2 73.5 mmHg (35.0-45.0); ABG PH 7.305 (7.350-7.450); ABG PO2 56.6 mmHg (75.0-100.0); AaDO2 582.9 mmHg; COHb 1.3 % (0.5-1.5); MetHb 0.2 % (0.0-1.5); O2Hb 85.2 % (94.0-97.0); PEEP,BG 15 cm H2O; SITE, ABG A-Line; VT, ABG 530 mL
[2021-02-24] MEDS ORDERED: SODIUM POLYSTYRENE SULFONATE 15 G/60 ML BOTTLE NG ONE (12:00)
[2021-02-24] MEDS: ALBUMIN 25% 25 GM in PREMIX 1 EA IV SCH ×2 (14:45→21:21)
--- NOTE | 2021-02-24 16:00 | NUR ---
ICU/RN DUE MEDS ARE GIVEN ORDERED.PM CARE PROVIDED.PHOTO TAKEN .WOUND DRESSING DONE ORDERED.RECTAL TUBE REMOVED.PT HAS SOFT STOOL. REPOSITION FOR COMFORT.SUCTION PROVIDED.CONTINUE MONITORING.
--- NOTE | 2021-02-24 19:30 | NUR ---
RN NOTES RECEIVED PATIENT WITH ORALLY INTUBATED WITH VETN SETTING AC 34 TV 530 FIO2 100% PEEP 15. SATURATION 81-82%. NO RESPIRATORY DISTRESS. PATIETN IS SEDATED WITH FENTANYL AND VERSED PROTOCOL ORDERED AND WILL START PRECEDEX PER MD. SR ON MONITOR. AFEBRILE. NGT FEEDING COLBY STAUFFER TOLERATED WELL WITH HOB ELEVATED. NO RESIDUAL NOTED. PATENCY CHECKED. KEPT PT CLEAN AND COMFORTABLE IN BED. WILL TURN AND REPOSITION Q2H AND PRN. WILL CLOSELY MONITOR.
[2021-02-24] MEDS: PRECEDEX 400 MCG/100 ML BOTTLE 100 ML IV PRN (19:50)
--- NOTE | 2021-02-24 19:55 | NUR ---
RN NOTES STARTED PRECEDEX AT 0.2 MCG/KG/MIN WILL TITRATE ORDERED.
--- NOTE | 2021-02-24 20:40 | NUR ---
RN NOTES FAMILY AT BEDSIDE VISITED THE PATIENT. PATIENT AT THIS TIME AFTER TURNING MORE ON RIGHT SIDE SATURATION WENT UP TO 88-91 %. WILL CONTINUE TO MONITOR.
[2021-02-25] VITALS (54 sets, daily range): BP systolic 70–230; BP diastolic 36–97
[2021-02-25] MEDS: BLOOD SUGAR DIAGNOSTIC 1 EACH STRIP IN SCH ×4 (00:16→18:19)
[2021-02-25] MEDS: INSULIN REGULAR, HUMAN 100 UNIT/ML 3 ML VIAL SQ PRN ×3 (00:19→13:59)
[2021-02-25] MEDS: FENTANYL CITRATE/PF 2,500 MCG in IV NS 0.9% 200 ML IV PRN ×3 (01:36→16:23)
[2021-02-25] MEDS: IV NS 0.9% 500 ML IV PRN (04:01)
[2021-02-25] MEDS: MIDAZOLAM HCL 100 MG in IV NS 0.9% 80 ML IV PRN ×2 (04:01→15:34)
[2021-02-25] MEDS: IV NS 0.9% 250 ML IV PRN ×2 (04:01→23:41)
[2021-02-25 04:58] LABS: CALCIUM, SERUM 7.8 mg/dL (8.5-10.1); CREATININE 0.7 mg/dL (0.6-1.3); POTASSIUM 4.1 mmol/L (3.5-5.1)
[2021-02-25] MEDS: HYDROCORTISONE SOD SUCCINATE 100 MG/2 ML VIAL IV SCH ×3 (06:13→22:05)
[2021-02-25] MEDS: ALBUMIN 25% 25 GM in PREMIX 1 EA IV SCH (06:13)
--- NOTE | 2021-02-25 07:07 | NUR ---
RN NOTES PATIENT REMAINED THE SAME. ORALLY INTUBATED. LOW SATURATION NOTEDD < 85% WHEN PATIENT BATHING. CONTINUE WITH VENT SETTING AC 34 TV 530 FIO2 100% PEEP 15. NO RESPIRATORY DISTRESS. CONTINUE ON FENTANYL DRIP. VERSED DRIP AND PRECEDEX DRIP. CARTER CATH INTACT WITH GOOD URINE OUTPUT. GENERALIZED EDEMA PRESENT ELEVATED /OFFLOADED EXT. WOUND TX. DONE ORDERED. KEPT PT CLEAN AND COMFORTABLE IN BED. WILL ENDORSED CONTINUITY OF CARE TO AM NURSE.
--- NOTE | 2021-02-25 07:23 | NUR ---
WOUND CARE FOLLOW UP: RE-EVALUATED SACRAL DEEP TISSUE INJURY WHICH REMAINS IN EVOLUTION. REVIEWED CHART, NURSING AND PHYSICIAN DOCUMENTATION AND PHOTOS. PT CURRENTLY FOLLOWED BY SURGICAL TEAM FOR WOUND. CONCUR WITH CURRENT TREATMENT PLAN. PT NOTED TO HAVE MULTIPLE CO-MORBIDITIES INCLUDING HYPOXEMIC RESPIRATORY FAILURE SECONDARY TO COVID 19 PNEUMONIA, ACUTE KIDNEY INJURY, SEPTIC SHOCK, GENERALIZED EDEMA AND RECURRENT FEVERS. PT REMAINS INTUBATED. DUE TO MULTIPLE CO-MORBIDITIES, FURTHER SKIN BREAKDOWN MAY BE UNAVOIDABLE. PT IS ON FIRST STEP CIRRUS LOW AIRLOSS MATTRESS. ALL SKIN PROTECTION MEASURES ARE IN PLACE. DISCUSSED WITH NURSING STAFF. MD IN AGREEMENT WITH PLAN OF CARE.
--- NOTE | 2021-02-25 07:40 | NUR ---
RT PATIENT REC'D ORALLY INTUBATED ON [facility] VENT WITH ORDERED SETTINGS. PATIENT IS IN CRITICAL CONDITION. VENT ALARMS CHECKED + AUDIBLE. AMBU BAG AT HOB. Addendum: 02/25/21 at 1035 by JOMAR MATTSON RT Amended: Links added.
--- NOTE | 2021-02-25 08:00 | NUR ---
rn notes Received patient on critical condition, ETT/Vent fio2-100%, PEEP 18 increase after ABG result . Patient saturation 0n 80%. assist reposition on right side for increase saturation but still low 80 to 81%. patient has generalized edema, elevated upper and lower extremities using pillows. Gann has less output. lab values stable. suction, mouth care done. patient sedated via fentanyl 300mcg//kg/min, versed 9mg/ml/min, and Precedex 0.2 mcg/kg/min on picc line intact. Patient has no residual tolerating feeding well 40ml/hr . keep hob elevated for aspiration precaution. water flash 200ml q4hr as prescribed. Seen hospitalist no new order .will follow up.
[2021-02-25] MEDS: PRECEDEX 400 MCG/100 ML BOTTLE 100 ML IV PRN (09:16)
[2021-02-25] MEDS: ZINC SULFATE 220 MG CAPSULE PO SCH (09:17)
[2021-02-25] MEDS: THIAMINE HCL 100 MG TABLET PO SCH (09:17)
[2021-02-25] MEDS: CHOLECALCIFEROL 1,000 UNIT TABLET (VIT D3) PO SCH (09:17)
[2021-02-25] MEDS: FLUDROCORTISONE 0.1 MG TABLET NG SCH (09:17)
[2021-02-25] MEDS: ASCORBIC ACID 500 MG TABLET PO SCH (09:17)
[2021-02-25] MEDS: FUROSEMIDE 20 MG/2 ML VIAL IV SCH ×2 (09:17→18:19)
--- NOTE | 2021-02-25 10:00 | NUR ---
rn notes per caramel candy maker helper Dr Claros increase peep 20, and abg within one hr . order taken and carried out. rt notified.
--- NOTE | 2021-02-25 10:33 | NUR ---
RT PEEP INCREASED TO [address] ARSHAD Addendum: 02/25/21 at 1035 by JOMAR MATTSON RT Amended: Links added.
--- NOTE | 2021-02-25 11:27 | NUR ---
rn notes Family next to the bed, spoken with [employer] Repairer Dr Claros about patient condition , also asking to speak hospitalist Dr Salamanca. notified hospitalist as well.
[2021-02-25 11:51] LABS: ABG BASE EXCESS 7.9 mmol/L; ABG PH 7.376 (7.350-7.450); ABG PO2 38.8 mmHg (75.0-100.0); AaDO2 612.2 mmHg; COHb 2.3 % (0.5-1.5); MetHb 0.3 % (0.0-1.5); O2Hb 69.6 % (94.0-97.0); SITE, ABG A-Line
--- NOTE | 2021-02-25 12:30 | NUR ---
RN NOTES ABG RESULT NOTIFIED Dr ARSHAD AND GET TO ORDER TO INCREASE PEEP 22, AND ANOTHER ABG TEST WITHIN ONE HR. ORDER TAKEN AND CARRIED OUT. RT AWARE OF.
--- NOTE | 2021-02-25 13:00 | NUR ---
RN NOTES BS-172 MG/DL COVERAGE GIVEN, PATIENT SATURATION ON 68-TO 70%. DR BARROSO SPOKE FAMILY ABOUT PATIENT CONDITION, AND CODE STATUS.
--- NOTE | 2021-02-25 13:03 | NUR ---
RT PER DR ARSHAD PEEP INCREASED TO 22 Addendum: 02/25/21 at 1304 by JOMAR MATTSON RT Amended: Links added.
[2021-02-25 14:40] LABS: ABG BASE EXCESS 10.4 mmol/L; ABG OXYGEN SATURATION 72.9 % (92.0-98.5); ABG PCO2 70.8 mmHg (35.0-45.0); ABG PH 7.354 (7.350-7.450); ABG PO2 39.4 mmHg (75.0-100.0); AaDO2 602.8 mmHg; COHb 1.7 % (0.5-1.5); MetHb 0.1 % (0.0-1.5); O2Hb 71.6 % (94.0-97.0); SITE, ABG A-Line
--- NOTE | 2021-02-25 15:30 | NUR ---
SS Note: SS consult requested for grief & loss. KAMINI met with pt.'s next of kin at bedside: Claudette Navarrete (sister) [phone] and Barbara Esqueda (brother) [phone]. SW offered emotional support as pt. is in critical condition. Family vented about patient's current condition & prognosis. Family expressed feeling frustrated, preoccupied, anxious. Family is going through stages of loss & grief. SW validated their feelings considering grave situation. Family stated they wish there could be a physician readily available 24 hors a day. SW explained that MD are available to provide orders as needed and explained that realistically MD cannot be unit 24 hours a day as they made rounds to different hospitals/ facilities. Family expressed understanding and stated they still wish that could be the situation. Family expressed that they are unhappy about MD rotation and wish they could keep the same attending physician as last week. Noted. SW used active listening, and mirroring. SW allowed space for family to vent. Family stated the pt.'s "stomach is hard and stomach is impacted and maybe the pt.'s feeding should be discontinued for the time being". SW validated their concern and SW reassured them that the medical team is monitoring the pt. condition and applying appropriate treatments as needed. SW inquired about pt.'s life and family reminisced about pt.'s life. Family thanked KAMINI for emotional support. KAMINI provided family with KAMINI office number. SW will remain available. KAMINI discussed with charge nurse, Ros.
[2021-02-25] MEDS: VECURONIUM 50 MG in IV NS 0.9% 50 ML IV PRN ×2 (16:34→17:27)
[2021-02-25] MEDS: NOREPINEPHRINE 32 MG in IV NS 0.9% 218 ML IV PRN ×2 (17:01→20:40)
--- NOTE | 2021-02-25 17:01 | NUR ---
RN NOTES PATIENT CONDITION CRITICAL DROP BP-58/33, P-101, O2- 33%, START LEVOPHED 1 MCG/KG/HR TO RESOLVE HYPOTENSION.
--- NOTE | 2021-02-25 19:00 | NUR ---
RN NOTES PATIENT CONDITION REMAIN CRITICAL, O2-65% TO 70%, LEVOPHED 0.2 MCG/KG/HR, FENTANYL 300 MCG/KG/HR, VERSED 9MG/ML/MIN, AND NORCURON 0.9MCG/KG/HR. BS-158MG/DL NO COVERAGE GIVEN, STOP FEEDING. CARTER OUTPUT WAS TOTAL 1440 ML. PATIENT HAS GENERALIZED EDEMA. FAMILY NEXT TO THE BED. DR ARSHAD SPOKEN TO THE BROTHER ABOUT CODE CHANGE. PATIENT TILL FULL CODE. ENDORSED ONCOMING NURSE ARACELIS.
--- NOTE | 2021-02-25 20:15 | NUR ---
RN NOTES RECEIVED PATIENT ORALLY INTUBATED WITH VENT SETTING AC 34 TV 530 TV 100% PEEP [address] SATURATION 60% ST ON MONITOR. PATIENT IS HEMODYNAMICALLY UNSTABLE. SEDATED WITH FENTANYL @ 300 MCG /HR, VERSED @ 9 MG/HR AND NORCURON DRIP @.9MCG/KG/MIN . AFEBRILE. PUPIL DILATED SBP IS < 90 MMHG . TITRATED LEVOPHED LEVOPHED PROTOCOL ORDER. NGTF CLAMPED. IV SITE ON OPAL PICC LINE INTACT AND PATENT WITH GOOD BLD. RETURN LEFT FEMORAL A - LINE INTACT WITH DRESSING. WILL CLOSELY MONITOR.
--- NOTE | 2021-02-25 21:00 | NUR ---
rt called to bedside for code blue. cpr preformed pt ventilated with ambu bag.
--- NOTE | 2021-02-25 21:00 | NUR ---
RN NOTES 2030 PM - NOTED PATIENT HR WENT LOW TO [address] 120'S,PEA ON MONITOR , A - LINE READ 63/2 MMHG LABELLED AND CALIBRATED, UNABLE TO READ SATURATION. . CODE BLUE INITIATED.
[2021-02-26] VITALS (26 sets, daily range): BP systolic 56–141; BP diastolic 17–100
--- NOTE | 2021-02-26 | NUR ---
RN NOTES PATIENT'S FAMILY AT BEDSIDE UPDATED. PATIETN REMAINED ORALLY INTUBATED WITH THE SAME SETTING . AFEBRILE. VS ON A LINE 97/55MMHG SATURATION 52% RESP. 34 HR 109 SINUS TACH ON MONITOR. SISTER MASSAGING THE PATIENT. FAMILY AWARE ABOUT THE VERY CRITICAL CONDITION OF THE PATIENT. LEVOPHED RUNNING FA DN TITRATING DOWNN FENTANYL AND LEVOPHED ORDERED/
[2021-02-26] MEDS: BLOOD SUGAR DIAGNOSTIC 1 EACH STRIP IN SCH ×2 (00:13→05:37)
[2021-02-26] MEDS: NOREPINEPHRINE 32 MG in IV NS 0.9% 218 ML IV PRN ×2 (02:24→06:20)
[2021-02-26] MEDS ORDERED: NOREPINEPHRINE 4 MG/4 ML AMPUL IV ONE (03:48)
[2021-02-26] MEDS ORDERED: PHENYLEPHRINE 10 MG/ML VIAL ONE (03:49)
--- NOTE | 2021-02-26 04:21 | NUR ---
RN NOTES STARTED NEOSYNEPHRINE AT .5 MCG/KG/MIN FOR SBP BARELY ON 90 MMHG [address] SATURATION 68% ON THE SAME SETTING. FAMILY REMAINED AT BEDSIDE.
[2021-02-26 04:52] LABS: BASOPHILS % (AUTO) 0.5 % (0.0-2.0); EOSINOPHILS % (AUTO) 0.7 % (0.0-6.0); HEMATOCRIT 40 % (39-51); HEMOGLOBIN 12.5 g/dL (13.5-17.5); LYMPHOCYTES # (AUTO) 0.6 K/uL (0.8-4.8); LYMPHOCYTES % (AUTO) 5.6 % (20.0-44.0); MEAN CORPUSCULAR HGB CONC 31 g/dl (31.0-36.0); MEAN CORPUSCULAR VOLUME 104 fL (80-96); MONOCYTES # (AUTO) 0.1 K/uL (0.1-1.30); MONOCYTES % (AUTO) 1.5 % (2.0-12.0); NEUTROPHILS # (AUTO) 9.2 K/uL (1.8-8.9); NEUTROPHILS % (AUTO) 91.7 % (43.0-81.0); PLATELET COUNT (AUTO) 70 K/uL (150-450); RED BLOOD CELL COUNT(AUTO) 3.88 MIL/uL (4.5-6.0); WHITE BLOOD COUNT (AUTO) 10.1 K/uL (4.3-11.0)
[2021-02-26] MEDS: HYDROCORTISONE SOD SUCCINATE 100 MG/2 ML VIAL IV SCH (05:16)
[2021-02-26 05:17] LABS: CALCIUM, SERUM 7.3 mg/dL (8.5-10.1); CREATININE 1.9 mg/dL (0.6-1.3); POTASSIUM 4.7 mmol/L (3.5-5.1)
--- NOTE | 2021-02-26 05:25 | NUR ---
RN NOTES ACCUCHECKED DONE WITH BS 45 MG/DL FOR THE SESCOND TEST. D50% GIVEN ORDERED WILL RECHECKED PROTOCOL ORDER.
[2021-02-26 06:22] LABS: BAND % (MANUAL) 49 % (0.0-5.0); LYMPHOCYTES % (MANUAL) 4 % (16-48); METAMYELOCYTES % 1 % (0-0); MONOCYTES % (MANUAL) 2 % (0-11.0); MYELOCYTES % 1 % (0-0); NEUTROPHILS % (MANUAL) 43 (42-76)
[2021-02-26] MEDS ORDERED: EPINEPHRINE (1:10,000) SYRINGE 1 MG/10 ML DISP.SYRIN ONE (06:48)
--- NOTE | 2021-02-26 06:53 | NUR ---
rt called to pt bedside for code blue. pt pulseless at time of rt arrival. cpr preformed. pt ventilated with ambu bag
--- NOTE | 2021-02-26 08:00 | NUR ---
RN NOTES 0624 AM - NOTED PATIENT SATURATION IS NON READABLE AND FLUSHES SATURATION 21%. SBP DROP TO 30'S. PEA ON MONITOR. INITIATE CODE BLUE AND STARTED CPR 0653 AM - AFTER 7 ROUNDS OF EPINEPHRINE AND OTHER ACLS MEDS ER MD ORDER PATIENT AT THIS TIME, SUPER VISOR AT BEDSIDE. FAMILY AWARE OUTSIDE THE ROOM AND SPOKE TO DOCTOR. . 0745 AM - CALLED [facility] SPOKE TO DEMETRIS Esquivel AND RELEASE PATIENTS BODY. 0820 AM - POST [facility]ORT[facility] CARE DONE
--- NOTE | 2021-02-26 10:45 | NUR ---
REMAINS GRAIN [employer]IPPER BY [facility] .
[2021-02-26] MEDS ORDERED: EPINEPHRINE (1:10,000) SYRINGE 1 MG/10 ML DISP.SYRIN IVP ONE (10:52)
[2021-02-26] MEDS ORDERED: DEXTROSE 50%-WATER 50 ML DISP.SYRIN IV ONE (10:52)
[2021-02-26] MEDS ORDERED: SODIUM BICARBONATE SYR 50 MEQ/50 ML DISP.SYRIN IV ONE (10:52)
[2021-02-26] MEDS ORDERED: CALCIUM CHLORIDE 1,000 MG/10 ML DISP.SYRIN IV ONE (10:52)
== END 2021-02-26 10:53 | DRG 870 ==
LOC: ER 13:16 → ICU 15:35
PROVIDERS: ADMIT Family Medicine; ATTEND Internal Medicine
PROC: XW033E5 Introduction of Remdesivir Anti-infective into Peripheral Vein, Percutaneous Approach, New Technology Group 5 (ICD-10-PCS; principal; 2021-01-31)
PROC: 5A1955Z Respiratory Ventilation, Greater than 96 Consecutive Hours (ICD-10-PCS; 2021-02-06)
PROC: 0BH18EZ Insertion of Endotracheal Airway into Trachea, Via Natural or Artificial Opening Endoscopic (ICD-10-PCS; 2021-02-06)
PROC: 02HV33Z Insertion of Infusion Device into Superior Vena Cava, Percutaneous Approach (ICD-10-PCS; 2021-02-06)
PROC: B548ZZA Ultrasonography of Superior Vena Cava, Guidance (ICD-10-PCS; 2021-02-06)
PROC: 02HV33Z Insertion of Infusion Device into Superior Vena Cava, Percutaneous Approach (ICD-10-PCS; 2021-02-09)
PROC: B548ZZA Ultrasonography of Superior Vena Cava, Guidance (ICD-10-PCS; 2021-02-09)
PROC: XW033H5 Introduction of Tocilizumab into Peripheral Vein, Percutaneous Approach, New Technology Group 5 (ICD-10-PCS; 2021-02-14)
PROC: 02HV33Z Insertion of Infusion Device into Superior Vena Cava, Percutaneous Approach (ICD-10-PCS; 2021-02-15)
PROC: B548ZZA Ultrasonography of Superior Vena Cava, Guidance (ICD-10-PCS; 2021-02-15)
PROC: 04HL33Z Insertion of Infusion Device into Left Femoral Artery, Percutaneous Approach (ICD-10-PCS; 2021-02-16)
PROC: 5A12012 Performance of Cardiac Output, Single, Manual (ICD-10-PCS; 2021-02-26)
PROC: 5A12012 Performance of Cardiac Output, Single, Manual (ICD-10-PCS; 2021-02-26)
DX: A41.89 Other specified sepsis (principal); U07.1 COVID-19; J12.82 Pneumonia due to coronavirus disease 2019; J96.01 Acute respiratory failure with hypoxia; R65.21 Severe sepsis with septic shock; N17.0 Acute kidney failure with tubular necrosis; J15.9 Unspecified bacterial pneumonia; E43 Unspecified severe protein-calorie malnutrition; E87.1 Hypo-osmolality and hyponatremia; E44.1 Mild protein-calorie malnutrition; E87.0 Hyperosmolality and hypernatremia; E87.4 Mixed disorder of acid-base balance; J93.9 Pneumothorax, unspecified; E86.1 Hypovolemia; D69.6 Thrombocytopenia, unspecified; E87.5 Hyperkalemia; D64.9 Anemia, unspecified; E83.41 Hypermagnesemia; E83.51 Hypocalcemia; R73.9 Hyperglycemia, unspecified; R74.01 Elevation of levels of liver transaminase levels; E88.09 Other disorders of plasma-protein metabolism, not elsewhere classified; Z68.31 Body mass index [BMI] 31.0-31.9, adult; J98.2 Interstitial emphysema; L89.156 Pressure-induced deep tissue damage of sacral region
CPT/HCPCS: 31720; 36415; 36600; 71045-TC; 80048-TC; 80053-TC; 80061-TC; 80076-TC; 80202-TC; 81001; 82040-TC; 82533; 82550-TC; 82728-TC; 82803-TC; 82962-TC; 83605-TC; 83615-TC; 83735-TC; 84100-TC; 84478-TC; 84484-TC; 85025-TC; 85378-TC; 85730-TC; 86140; 86140-TC; 87040-TC; 87070-TC; 87081-TC; 87086-TC; 92950-TC; 93970-TC; 94002-TC; 94003-TC; 94760-TC; 94762-TC; 94799-TC; 99082-TC; A4216; C1751; C9803; G0378; J0171; J0610; J0692; J1100; J1120; J1200; J1644; J1650; J1720; J1815; J1940; J2185; J2250; J2370; J3010; J3262; J3370; J3490; J7030; J7040; J7050; J7060; J7070; P9047; U0003